=== PATIENT | male | born 1985 | race Hispanic/Latino ===

== ENCOUNTER 2025-06-10 12:38 | Inpatient (IN) | payer BC ==
[~2025-06-10] VITALS: Ht 160 cm; Wt 63.6 kg
[2025-06-10] VITALS (10 sets, daily range): BP systolic 98–129; BP diastolic 56–72; PULSE 99–112; RESP 19–23; TEMP 100.1–100.3; O2SAT 95–98
[~2025-06-10 12:38] MED LIST: ATOR40TA69 PO; FENO145T26 PO; METF-444 PO; OMEG1CAP31 PO; OMEP40CA21 PO
--- NOTE | 2025-06-10 13:09 | ERN ---
General Chief Complaint: Abdominal Pain Stated Complaint: ABDOMINAL PAIN Time Seen by MD: 12:45 History of Present Illness Initial Comments 39-year-old male history of diabetes, hyperlipidemia, pancreatitis here for evaluation of pancreatitis like symptoms. As per EMS who was present at bedside patient has a developed abdominal pain since 8:00 a.m. this morning. Few episodes of vomiting but no diarrhea. No chest pain. No shortness Allergies: Coded Allergies: Penicillins (Verified Allergy, Severe, anaphylaxis, 01/01/25) Home Meds Active Scripts Omeprazole (Omeprazole) 40 Mg Capsule.dr, 1 CAP PO DAILY for 30 Days, #30 CAP 0 Refills Prov:TERRANCE LOCKETT MD 01/04/25 Fenofibrate Nanocrystallized (Fenofibrate) 145 Mg Tablet, 1 TAB PO DAILY for 30 Days, #30 TAB 0 Refills Prov:TERRANCE LOCKETT MD 01/04/25 [place]-3 Acid Ethyl Esters (Lovaza) 1 Gram Capsule, 2 CAP PO BID for 30 Days, #120 CAP 0 Refills Prov:TERRANCE LOCKETT MD 01/04/25 Atorvastatin Calcium (LIPITOR) 40 Mg Tablet, 40 MG PO HS for 30 Days, #30 TAB 1 Refill Prov:TERRANCE LOCKETT MD 01/04/25 Metformin HCl (Metformin HCl) 500 Mg Tablet, 500 MG PO DAILY, #30 TAB Prov:TERRANCE LOCKETT MD 01/04/25 Past Medical History Past Medical History: Cancer, Pancreatitis Medical History Other: PANCREATITIS, TESTICULAR CA Past Surgical History: Other Surgical History Other: TESTICULAR SX FOR CA. Gastrointestinal/Abdominal: (+) nausea, (+) vomiting, (+) abdominal pain Review of Systems: was completed, & the rest were negative. Physical Exam Physical Exam Dictation GENERAL APPEARANCE NAD, activity normal for age, well developed/ well nourished, no cyanosis, pallor, or diaphoresis. EYES lids/conjunctiva normal. EARS/NOSE/THROAT Mucous membranes moist, nares normal, lips/teeth normal uvula midline without oral pharyngeal erythema, exudate or swelling TMs normal bilaterally. No lymphangitis/lymphedema. HEAD/NECK normocephalic atraumatic, no facial trauma, neck is supple. RESPIRATORY respiratory effort normal, speaks in full sentences, no tripod position, no accessory muscle use. Lungs clear to auscultation without rhonchi, wheezes, rales CARDIAC Regular rate and rhythm, no edema. ABDOMINAL Soft, diffuse epigastric tenderness MUSCLES/EXTREMITIES No abnormal range of motion, no swelling. SKIN Warm, pink and dry. No rashes, dermatoses, petechiae or lesions. NEUROLOGICAL Speech is clear and appropriate. Normal level of consciousness. Gait and coordination are normal. 5/5 strength in all extremities. PSYCH Normal mood and affect. Judgement/competence is appropriate Results Laboratory and Microbiology Lab and Micro Result Laboratory Tests Test 06/10/25 12:55 06/10/25 13:15 06/10/25 14:22 White Blood Count 13.9 K/uL (4.8-10.8) H Red Blood Count 4.74 MIL/uL (4.50-6.20) Hemoglobin 16.6 g/dL (14.0-18.0) Hematocrit 41.4 % (42-54) L Mean Corpuscular Volume 87.3 fL (79-99) Mean Corpuscular Hemoglobin 35.0 pg (27.0-33.0) H Mean Corpuscular Hemoglobin Concent 40.1 g/dL (32.0-36.0) H Red Cell Distribution Width 12.6 % (11.0-15.5) Platelet Count 361 K/uL (130-400) Mean Platelet Volume 9.9 fL (7.5-10.5) Immature Granulocyte % (Auto) 0.9 % (0-1) Neutrophils (%) (Auto) 80.3 % (40.0-77.0) H Lymphocytes (%) (Auto) 11.0 % (21.0-51.0) L Monocytes (%) (Auto) 6.7 % (3.0-13.0) Eosinophils (%) (Auto) 0.6 % (0.0-8.0) Basophils (%) (Auto) 0.5 % (0.0-5.0) Neutrophils # (Auto) 11.1 K/uL (1.8-7.7) H Lymphocytes # (Auto) 1.5 K/uL (1.0-4.8) Monocytes # (Auto) 0.9 K/uL (0.1-1.0) Eosinophils # (Auto) 0.09 K/uL (0.00-0.70) Basophils # (Auto) 0.07 K/uL (0.00-0.20) Absolute Immature Granulocyte (auto 0.13 K/uL (0-1) Segmented Neutrophils % 81 % (40-70) H Band Neutrophils % 1 % (0-2) Lymphocytes % (Manual) 13 % (22-44) L Monocytes % (Manual) 5 % (2-9) Nucleated Red Blood Cells 0.0 % (0.0-0.19) Differential Comment MANUAL DIFFERENTIAL White Cell Morphology Comment Platelet Morphology Comment ADEQUATE Red Blood Cell Morphology ANISO 1+ Sodium Level 127 mmol/L (136-145) L Potassium Level 3.6 mmol/L (3.5-5.1) Carbon Dioxide Level mmol/L (21-32) Creatinine 0.8 mg/dL (0.5-1.3) Glomerular Filtration Rate Calc 115 mL/min (>90) Random Glucose 359 mg/dL (70-105) H Total Calcium mg/dL (8.5-10.1) Total Bilirubin 8.4 mg/dL (0.2-1.0) H Direct Bilirubin 0.1 mg/dL (0.0-0.3) Alkaline Phosphatase 166 U/L (50-136) H Total Protein 7.7 g/dL (6.0-8.3) Albumin 3.2 g/dL (3.5-5.0) L Triglycerides Level 1949 mg/dL (30-200) H Lipase 308 U/L (16-77) H Urine Color LIGHT-YELLOW (YELLOW) Urine Appearance CLEAR (CLEAR) Urine pH 7.0 (5.0-8.0) Urine Specific [place] 1.043 (1.001-1.031) Urine Protein 30 mg/dL (NEGATIVE) H Urine Glucose (UA) >=1000 mg/dL (NEGATIVE) H Urine Ketones 40 mg/dL (NEGATIVE) H Urine Occult Blood NEGATIVE (NEGATIVE) Urine Nitrate NEGATIVE (NEGATIVE) Urine Bilirubin NEGATIVE mg/dL (NEGATIVE) Urine Urobilinogen 0.2 mg/dL (0.2-1.0) Urine Leukocyte Esterase NEGATIVE Shanita/uL Urine RBC 0-1 /HPF (0-1) Urine WBC 0-1 /HPF (0-1) Urine Bacteria None /HPF (None Seen) Blood Gas Specimen Type Venous Arterial Blood Oxygen Saturation 85.7 % (94.0-98.0) L Venous Blood pH 7.373 (7.320-7.430) Venous Blood pCO2 at Patient Temp 32 (38-54) L Venous Blood pO2 at Patient Temp 50.7 mmHg (23.0-48.0) H Venous Blood HCO3 18.0 (22.0-29.0) L Venous Blood Base Excess -6.0 (-2.0-3.0) L Venous Blood Total Hemoglobin 14.1 (13.5-17.5) Sodium (Blood Gas) 136 MMOL/L (136-145) Bedside Potassium (Blood Gas) 3.6 MMOL/L (3.4-4.5) Bedside Chloride (Blood Gas) 108 MMOL/L (98-107) H Bedside Glucose (Blood Gas) 230 MG/DL (65-95) H Bedside Ionized Calcium (Blood Gas) 1.14 MMOL/L (1.15-1.33) L Bedside Lactic Acid (Blood Gas) 1.33 MMOL/L (0.36-0.75) H Blood Gas Temperature 37.0 CELSIUS (35.5-37.0) Blood Gas Vent Mode RA (ROOM AIR) FiO2 21.0 % Blood Gas Specimen Comment HAKAN MDM 39-year-old male here for evaluation of pancreatitis. We will get basic labs, give IV fluids and reassess. Disposition pending results of labs and clinical improvement. Likely admission ED Course Orders Procedure Category Date Status Time Triglycerides LAB 06/10/25 In Process 12:46 Basic Metabolic Panel LAB 06/10/25 In Process 12:46 Cbc With Differential LAB 06/10/25 Complete 12:46 Hepatic Function Panel LAB 06/10/25 In Process 12:46 Lipase LAB 06/10/25 In Process 12:46 Urinalysis Profile LAB 06/10/25 Complete 12:46 0.9%Nacl 1000ml (Ns PHA 06/10/25 In Process 1000ml) 13:30 Manual Differential LAB 06/10/25 Complete 12:55 Ondansetron 4mg Inj PHA 06/10/25 Complete (Zofran 4mg Inj) 14:00 Morphine 4mg Syg PHA 06/10/25 Complete (Morphine 4mg Syg) 14:00 Ketone Blood LAB 06/10/25 In Process Quantitative 14:10 Venous Blood Gas + RT 06/10/25 Transmitted 14:10 Hemoglobin A1c LAB 06/10/25 In Process 14:11 Crp Quantitative LAB 06/10/25 In Process 14:11 Procalcitonin LAB 06/10/25 In Process 14:11 Lactate Dehydrogenase LAB 06/10/25 In Process 14:11 Pt And Ptt LAB 06/10/25 In Process 14:14 Venous Blood Gas Plus LAB 06/10/25 Complete 14:22 Current Medications Medications (Trade) Dose Ordered Sig/Josee Route PRN Reason Start Time Stop Time Status Last Admin Dose Admin Morphine Sulfate (morPHINE 4MG SYG) 4 mg ONCE ONCE IVP 06/10/25 14:00 06/10/25 14:01 DC 06/10/25 13:47 Ondansetron HCl (zoFRAN 4MG INJ) 4 mg ONCE ONCE IVP 06/10/25 14:00 06/10/25 14:01 DC 06/10/25 13:47 Sodium Chloride 1,000 ml @ 0 mls/hr Q0M IV 06/10/25 13:30 07/10/25 13:29 06/10/25 13:24 Vital Signs Date Time Temp Pulse Resp B/P (MAP) Pulse Ox O2 Delivery O2 Flow Rate FiO2 06/10/25 13:17 98.2 113 21 132/80 96 Room Air* 0 21 06/10/25 12:52 99.9 106 16 133/81 97 Room Air 0 DX & DISP Disposition: Discharge Departure Impression: Primary Impression: Pancreatitis Additional Impressions: Hypertriglyceridemia, Hyperglycemia, Hyponatremia Condition: Stable Referrals: PEDRITO TAVAREZ PA-C (PCP) NATE URIAS MD Jun 10, 2025 13:09
[2025-06-10 13:11] LABS: IMMATURE GRANULOCYTE ABSOLUTE 0.13 K/uL (0-1); NUCLEATED RED BLOOD CELLS 0.0 % (0.0-0.19); PLATELET COUNT (AUTO) 361 K/uL (130-400); RED BLOOD CELL COUNT(AUTO) 4.74 MIL/uL (4.50-6.20); RED CELL DISTRIBUTION WIDTH 12.6 % (11.0-15.5); WHITE BLOOD COUNT (AUTO) 13.9 K/uL (4.8-10.8)
[2025-06-10] MEDS: 0.9%NACL 1000ML 1,000 ML IV SCH (13:24)
[2025-06-10 13:45] LABS: GLUCOSE,RANDOM 359.0 mg/dL (70-105); SODIUM SERUM 127.0 mmol/L (136-145)
[2025-06-10 13:59] LABS: APPEARANCE,URINE CLEAR (CLEAR); GLUCOSE, URINE (UA) >=1000 mg/dL (NEGATIVE); LEUKOCYTE ESTERASE ,URINE NEGATIVE Leu/uL (NEGATIVE); NITRATE,URINE NEGATIVE (NEGATIVE); OCCULT BLOOD,URINE NEGATIVE (NEGATIVE)
[2025-06-10 14:00] LABS: ADD UA MICROSCOPIC YES
[2025-06-10 14:16] LABS: BAND NEUTROPHILS % (MANUAL) 1 % (0-2); LYMPHOCYTES % (MANUAL) 13 % (22-44); MONOCYTES % (MANUAL) 5 % (2-9); SEGMENTED NEUTROPHILS % 81 % (40-70)
[2025-06-10 14:17] LABS: MAN.DIFF COMMENT-IMPRESSION MANUAL DIFFERENTIAL; PLATELET MORPHOLOGY COMMENT ADEQUATE
[2025-06-10 14:24] LABS: ABG OXYGEN SATURATION 85.7 % (94.0-98.0); BASE EXCESS,VENOUS BLOOD GAS -6.0 (-2.0-3.0); DEVICE COMMENT VEN; HCO3,VENOUS BLOOD GAS 18.0 (22.0-29.0); PCO2,VENOUS BLOOD GAS 32 (38-54); PH,VENOUS BLOOD GAS 7.373 (7.320-7.430); PO2,VENOUS BLOOD GAS 50.7 mmHg (23.0-48.0); TEMPERATURE, CELSIUS BG 37.0 CELSIUS (35.5-37.0); VENT MODE, BG RA (ROOM AIR)
[2025-06-10 14:25] LABS: CREATININE 0.8 mg/dL (0.5-1.3); GLOMERULAR FILTR. RATE CALC 115.0 mL/min (>90); TOTAL PROTEIN, SERUM 7.7 g/dL (6.0-8.3)
[2025-06-10 14:42] LABS: UREA NITROGEN, BLOOD 14.0 mg/dL (7-18)
[2025-06-10 14:57] LABS: LACTATE DEHYDROGENASE 285.0 U/L (81-234)
[2025-06-10] MEDS: 0.9%NACL 1000ML 1,000 ML IV ONE (14:59)
[2025-06-10] MEDS ORDERED: DEXTROSE 5 %-0.45 % NACL 1,000 ML IV SCH (15:00)
[2025-06-10] MEDS ORDERED: 0.9%NACL 1000ML 1,000 ML IV SCH (15:00)
[2025-06-10] MEDS ORDERED: INSULIN REGULAR, HUMAN 3ML 100 UNIT in 0.9%NACL 100ML 100 ML IV SCH (15:00)
--- NOTE | 2025-06-10 15:01 | NUR ---
PER DR MORTENSEN, ONCE FLUID BOLUS IS COMPLETE, START INSULIN DRIP AT 0.1U/KG/HR WITHOUT TITRATION. ASSESS BG AND INITIATE DEXTROSE SOLUTION ONCE BG<300.
[2025-06-10 15:15] LABS: ASPARTATE AMINOTRANSFERASE 23.0 U/L (10-37)
[2025-06-10] MEDS: D5W-1/2 NS/20MEQ KCL 1,000 ML IV SCH (15:16)
--- NOTE | 2025-06-10 15:16 | HP ---
[facility] HISTORY AND PHYSICAL Date of Service: Jun 10, 2025 Time of Service: 15:16 HISTORY OF PRESENT ILLNESS: Date of service: 06/10/2025, patient was seen in ER room two This is a 39-year-old male with underlying history of type 2 diabetes mellitus, history of recurrent pancreatitis, with history of hypertriglyceridemia, who presented to the ER for further evaluation of [id number] epigastric and and left upper quadrant pain that started close to 8:00 a.m. today. Pain was 8/10 in intensity with associated nausea. Patient states that pain is similar to his previous hospitalization in [facility] [place]/20[place] when he was admitted with DKA, severe hypertriglyceridemia and acute pancreatitis. Patient states that he recently ran out of his cholesterol medication including fish oil and Lipitor. He also reports that his primary care provider recently stopped his diabetic medication and he has not taken his diabetic medications for several weeks. Patient denies any chest pain, shortness of breath, focal weakness or upper or lower extremities. On presentation to the hospital, patient was noted to have T-max of 99.9 F, heart rate of 106, blood pressure 133/81. [place] [address], hemoglobin of 16.6, platelet count of 223836. CMP showed sodium of 127, potassium 3.6, chloride of 100, bicarb of 17, creatinine 0.8, blood glucose of 359, lipase of 308, triglycerides of 1949. Patient will be admitted to ICU for further management of severe hypertriglyceridemia causing recurrent acute pancreatitis. We will follow up results of liver enzymes. Patient will be admitted to ICU and will receive aggressive IV hydration and will be initiated on insulin drip. Abdominal CT will be obtained as well for further evaluation. REVIEW OF SYSTEMS CONSTITUTIONAL: Denies fevers, chills, or night sweats. No unintentional weight loss reported. NEUROLOGICAL: Denies headache, amaurosis fugax, motor weakness, sensory deficit, vertigo/spinning sensation, gait abnormalities, or tremors. ENT: No hearing loss, otalgia, otorrhea, rhinitis, rhinorrhea, hoarseness, or sore throat. CARDIOVASCULAR: Denies any exertional angina, dyspnea on exertion, orthopnea, paroxysmal nocturnal dyspnea, palpitations, life-threatening arrhythmias, claudication. PULMONARY: Denies any shortness of breath, cough, phlegm/sputum, hemoptysis, pleuritic chest pain. SLEEP: Denies morning headaches, daytime somnolence or napping. Denies difficulty falling asleep, staying asleep, waking from sleep. Denies knowledge of snoring. GASTROINTESTINAL: Nausea and [id number] abdominal pain that started today GENITOURINARY: Denies frequency, urgency, nocturia, hematuria or incontinence (Storage/Irritative symptoms.) Low urinary stream, straining to void, urinary intermittency or hesitancy, splitting of the voiding stream, terminal dribbling. ENDOCRINOLOGIC: Denies polyuria, polydipsia, polyphagia or heat/cold intolerances. HEMATOLOGIC: Denies thrombophilia/previous clots, or coagulopathy/bleeding disorders. ONCOLOGIC: Denies personal history of malignancy. DERMATOLOGIC: Denies rashes or pruritus. PSYCHIATRIC: Denies any suicidal or homicidal ideation. Denies hallucinations. PAST MEDICAL HISTORY: Prior history of multiple episodes of pancreatitis, history of hypertriglyceridemia, underlying history of ketosis prone diabetes mellitus, history of testicular cancer in 2003 PAST SURGICAL HISTORY: History of left testicular orchiectomy PAST SOCIAL HISTORY: Denies active smoking or alcohol consumption FAMILY HISTORY: History of liver cancer in family Allergies: Patient has allergic reaction including anaphylaxis to penicillin Home medications: Reports being on fish oil and Lipitor as outpatient Coded Allergies: Penicillins (Verified Allergy, Severe, anaphylaxis, 01/01/25) PHYSICAL EXAM GENERAL APPEARANCE: The patient is awake, alert, and oriented, in no acute cardiopulmonary distress. NEUROLOGICAL: Cranial nerves II-XII grossly intact. Motor is 5/5 in bilateral upper and lower extremities proximal to distal. No sensory deficits. HEENT: Face is symmetric. Pupils are equal and reactive. Extraocular movements are intact. NECK: Supple. No JVD. No thyromegaly. No submental, submandibular, pre- /postauricular, occipital or supraclavicular lymphadenopathy. CHEST: Normal chest expansion. No Telemetry. LUNGS: Absence of any rales, rhonchi or any wheezing. CARDIOVASCULAR: Regular. S1 and S2 normal. No appreciable rubs, murmurs or gallops. ABDOMEN: Soft, mild tenderness to palpation of the epigastric and left upper quadrant region, there is no rebound or guarding : Deferred. No [place]. EXTREMITIES: Non-edematous and not cyanotic. No clubbing. Good capillary refill. SKIN: No skin breakdown. Vital Sign (Last 24 Hours) 06/10/25 06/10/25 13:17 14:55 Temp 98.2 Pulse 112 Resp 20 B/P (MAP) 132/80 Pulse Ox 96 O2 Delivery N/A Room Air O2 Flow Rate 0 FiO2 21 LABS: Laboratory: Test 06/10/25 15:11 06/10/25 14:22 06/10/25 14:19 06/10/25 13:15 Range/Units Whole Blood Glucose 185 H 70-110 MG/DL Blood Gas Specimen Type Venous Arterial Blood Oxygen Saturation 85.7 L 94.0-98.0 % Venous Blood pH 7.373 7.320-7.430 Venous Blood pCO2 at Patient Temp 32 L 38-54 Venous Blood pO2 at Patient Temp 50.7 H 23.0-48.0 mmHg Venous Blood HCO3 18.0 L 22.0-29.0 Venous Blood Base Excess -6.0 L -2.0-3.0 Venous Blood Total Hemoglobin 14.1 13.5-17.5 Sodium (Blood Gas) 136 136-145 MMOL/L Bedside Potassium (Blood Gas) 3.6 3.4-4.5 MMOL/L Bedside Chloride (Blood Gas) 108 H 98-107 MMOL/L Bedside Glucose (Blood Gas) 230 H 65-95 MG/DL Bedside Ionized Calcium (Blood Gas) 1.14 L 1.15-1.33 MMOL/L Bedside Lactic Acid (Blood Gas) 1.33 H 0.36-0.75 MMOL/L Blood Gas Temperature 37.0 35.5-37.0 CELSIUS Blood Gas Vent Mode RA ROOM AIR FiO2 21.0 % Blood Gas Specimen Comment HAKAN Whole Blood Ketones Quantitative 0.6 0.0-0.6 mmol/L Lactate Dehydrogenase 285 H 81-234 U/L C-Reactive Protein, Quantitative 84.90 H 0.5-3.0 mg/L Procalcitonin 0.10 0.05-0.5 ng/mL Urine Color LIGHT-YELLOW YELLOW Urine Appearance CLEAR CLEAR Urine pH 7.0 5.0-8.0 Urine Specific [place] 1.043 1.001-1.031 Urine Protein 30 H NEGATIVE mg/dL Urine Glucose (UA) >=1000 H NEGATIVE mg/dL Urine Ketones 40 H NEGATIVE mg/dL Urine Occult Blood NEGATIVE NEGATIVE Urine Nitrate NEGATIVE NEGATIVE Urine Bilirubin NEGATIVE NEGATIVE mg/dL Urine Urobilinogen 0.2 0.2-1.0 mg/dL Urine Leukocyte Esterase NEGATIVE NEGATIVE Shanita/uL Urine RBC 0-1 0-1 /HPF Urine WBC 0-1 0-1 /HPF Urine Bacteria None None Seen /HPF Test 06/10/25 12:55 Range/Units White Blood Count 13.9 H 4.8-10.8 K/uL Red Blood Count 4.74 4.50-6.20 MIL/uL Hemoglobin 16.6 14.0-18.0 g/dL Hematocrit 41.4 L 42-54 % Mean Corpuscular Volume 87.3 79-99 fL Mean Corpuscular Hemoglobin 35.0 H 27.0-33.0 pg Mean Corpuscular Hemoglobin Concent 40.1 H 32.0-36.0 g/dL Red Cell Distribution Width 12.6 11.0-15.5 % Platelet Count 361 130-400 K/uL Mean Platelet Volume 9.9 7.5-10.5 fL Immature Granulocyte % (Auto) 0.9 0-1 % Neutrophils (%) (Auto) 80.3 H 40.0-77.0 % Lymphocytes (%) (Auto) 11.0 L 21.0-51.0 % Monocytes (%) (Auto) 6.7 3.0-13.0 % Eosinophils (%) (Auto) 0.6 0.0-8.0 % Basophils (%) (Auto) 0.5 0.0-5.0 % Neutrophils # (Auto) 11.1 H 1.8-7.7 K/uL Lymphocytes # (Auto) 1.5 1.0-4.8 K/uL Monocytes # (Auto) 0.9 0.1-1.0 K/uL Eosinophils # (Auto) 0.09 0.00-0.70 K/uL Basophils # (Auto) 0.07 0.00-0.20 K/uL Absolute Immature Granulocyte (auto 0.13 0-1 K/uL Segmented Neutrophils % 81 H 40-70 % Band Neutrophils % 1 0-2 % Lymphocytes % (Manual) 13 L 22-44 % Monocytes % (Manual) 5 2-9 % Nucleated Red Blood Cells 0.0 0.0-0.19 % Differential Comment MANUAL DIFFERENTIAL White Cell Morphology Comment Platelet Morphology Comment ADEQUATE Red Blood Cell Morphology ANISO 1+ Sodium Level 127 L 136-145 mmol/L Potassium Level 3.6 3.5-5.1 mmol/L Chloride Level 100 L 101-111 mmol/L Carbon Dioxide Level 21-32 mmol/L Blood Urea Nitrogen 14 7-18 mg/dL Creatinine 0.8 0.5-1.3 mg/dL Glomerular Filtration Rate Calc 115 >90 mL/min Random Glucose 359 H 70-105 mg/dL Total Calcium 8.5-10.1 mg/dL Total Bilirubin 8.4 H 0.2-1.0 mg/dL Direct Bilirubin 0.1 0.0-0.3 mg/dL Alkaline Phosphatase 166 H 50-136 U/L Total Protein 7.7 6.0-8.3 g/dL Albumin 3.2 L 3.5-5.0 g/dL Triglycerides Level 1949 H 30-200 mg/dL Lipase 308 H 16-77 U/L Current Medications Medications (Trade) Dose Ordered Sig/Josee Route PRN Reason Start Time Stop Time Status Last Admin Dose Admin Acetaminophen (TYLenol 325MG TAB) 650 mg Q6H PRN PO MILD PAIN (1-3) 06/10/25 15:00 07/10/25 14:59 Albuterol (DUOneb) 1 udvial Q6H PRN IH SHORTNESS OF BREATH 06/10/25 15:00 07/10/25 14:59 Dextrose/Sodium Chloride 1,000 ml @ 0 mls/hr AD IV 06/10/25 15:00 07/10/25 14:59 Enoxaparin Sodium (Lovenox) 40 mg DAILY SQ 06/11/25 09:00 07/11/25 08:59 Fish Oil (Fish Oil 1000 Mg/Cap) 2,000 mg BID PO 06/10/25 21:00 07/10/25 20:59 Insulin Human Regular 100 unit/ Sodium Chloride 100 ml @ 0 mls/hr PROTOCOL PRN IV HYPERGYLCEMIA PROTOCOL 06/10/25 15:30 07/10/25 15:29 Insulin Human Regular 100 unit/ Sodium Chloride 101 ml @ 0 mls/hr PROTOCOL IV 06/10/25 15:00 06/10/25 15:09 DC Magnesium Sulfate 50 ml @ 0 mls/hr PROTOCOL IV 06/10/25 15:00 07/10/25 14:59 Morphine Sulfate (morPHINE 2MG SYG) 2 mg Q6H PRN IVP SEVERE PAIN (7-10) 06/10/25 15:00 06/17/25 14:59 Multivitamins Therapeutic (Multivitamin Tablet) 1 tab DAILY PO 06/11/25 09:00 07/11/25 08:59 Ondansetron HCl (zoFRAN 4MG INJ) 4 mg Q6H PRN IVP NAUSEA/VOMITING 06/10/25 15:00 07/10/25 14:59 Pantoprazole Sodium (PROTonix 40MG INJ) 40 mg Q24H IVP 06/10/25 15:00 07/10/25 14:59 Pharmacy Profile Note (Pharmacy Communication) 1 each ONCE MISC 06/10/25 15:30 06/10/25 15:14 DC Potassium Chloride 20 meq/ Sodium Chloride 1,010 ml @ 0 mls/hr PROTOCOL IV 06/10/25 15:00 07/10/25 14:59 Potassium Chloride/Dextrose/ Sod Cl 1,000 ml @ 0 mls/hr AD IV 06/10/25 15:00 07/10/25 14:59 Potassium Chloride 100 ml @ 100 mls/hr AD PRN IV POTASSIUM PROTOCOL 06/10/25 15:00 07/10/25 14:59 Potassium Chloride (K-Dur/Klor-Con 20meq) 20 meq AD PRN PO POTASSIUM PROTOCOL 06/10/25 15:00 07/10/25 14:59 Potassium Chloride (KCl 10% Elixir 20meq/15ml) 20 meq AD PRN PO POTASSIUM PROTOCOL 06/10/25 15:00 07/10/25 14:59 Sodium Chloride 1,000 ml @ 0 mls/hr Q0M IV 06/10/25 13:30 06/10/25 14:43 DC 06/10/25 13:24 999 MLS/HR Sodium Chloride 1,000 ml @ 200 mls/hr PROTOCOL IV 06/10/25 15:00 06/10/25 14:48 DC DIAGNOSTICS / RADIOLOGY: CT of the abdomen pelvis with IV contrast is pending ASSESSMENT: Severe symptomatic hypertriglyceridemia, POA Acute pancreatitis, POA History of recurrent pancreatitis, POA Nonketotic uncontrolled hyperglycemia, POA Hypovolemic hyponatremia, POA Dehydration, POA Underlying history of ketosis prone diabetes mellitus, POA History of hyperlipidemia, POA History of pancreatic cyst measuring 0.9 cm, (on CT Abdomen/ Pelvis, 11/17), POA History of cholelithiasis, POA PLAN: Patient will be admitted to ICU Patient's triglyceride level is close to 2000 with symptoms of acute pancreatitis Patient will be kept NPO except for medications We will start patient on insulin drip starting at 0.1 units/kg/hour, patient will receive aggressive IV fluid resuscitation, we will titrate IV fluids to avoid any episodes of hypoglycemia, we will maintain blood sugar checks q.1 hour while patient remains on insulin drip Pain control with IV morphine Consultation with critical care service will be obtained Consultation with Endocrinology will be requested We will follow up results of CT abdomen pelvis with IV contrast for further ev aluation of pancreatitis Electrolytes will be repleted per protocol including potassium and magnesium while patient remains on insulin drip We will start patient on Lipitor 20 mg daily, fish oil 1 g twice daily, as well as fenofibrate 145 mg All labs will be repeated in the morning, we will check triglycerides tomorrow, we will check hemoglobin A1c, patient we will need diabetic medications on discharge along with refills of home medications for hypertriglyceridemia We will obtain CXR to r/o any significant infiltrates, blood cultures will be obtained, will monitor closely for signs of infection, empiric abx in case infection is confirmed Date of service: 06/10/2025 Anticipate hospitalization for at least 48-72 hours Plan of care was discussed with patient at bedside, Dominic Smith MD Advanced Care Planning: Which of the following were discussed: Hospice care: Yes __ No _X_ Therapeutic options: Yes _X_ No __ Advance directives: Yes _X_ No __ Other discussions: Discussed with who?: Patient Voluntary nature of this service was explained to the patient? Yes _x_ No __ Amount of time spent: 20 minutes DOMINIC SMITH MD Jun 10, 2025 15:16
[2025-06-10] MEDS: INSULIN REGULAR, HUMAN 3ML 100 UNIT in 0.9%NACL 100ML 99 ML IV PRN (15:25)
--- NOTE | 2025-06-10 15:28 | NUR ---
BG FINGERSTICK IS 185. DR MORTENSEN INFORMED. PER DR MORTENSEN, INITIATED D5-1/2NS WITH 20MEQ POTASSIUM CHLORIDE AT RATE 150ML/HR. INITIATED INSULIN DRIP AT 6U/HR.
[2025-06-10] MEDS ORDERED: PHARMACY COMMUNICATION MISC SCH (15:30)
[2025-06-10 15:52] LABS: INR 0.97 (0.85-1.15)
--- NOTE | 2025-06-10 15:58 | NUR ---
PENDING GFR RESULTS, IV SITE, & CONSENT FIR CT EXAM
[2025-06-10] MEDS ORDERED: IOHEXOL-350 75 ML VIAL IV ONE (16:02)
--- NOTE | 2025-06-10 16:05 | NUR ---
PATIENT EDUCATED ON CT CONTRAST AND ASSOCIATED RISK. PATIENT VERBALIZED UNDERSTANDING AND CONSENT FOR CT W/CONTRAST. CONSENT FORM SIGNED AND PLACED IN PATIENT CHART.
--- NOTE | 2025-06-10 16:10 | NUR ---
PATIENT TAKEN TO CT WITH ED RN.
--- NOTE | 2025-06-10 16:33 | NUR ---
RETURNED FROM CT.
[2025-06-10 16:51] LABS: GLUCOSE,RANDOM 271.0 mg/dL (70-105); SODIUM SERUM 130.0 mmol/L (136-145); UREA NITROGEN, BLOOD 10.0 mg/dL (7-18)
--- NOTE | 2025-06-10 16:51 | NUR ---
GAVE REPORT TO KATINA GALAN.
--- NOTE | 2025-06-10 17:12 | HMCIMG ---
EXAM: CT Abdomen and Pelvis with IV contrast CLINICAL HISTORY: Concern for acute pancreatitis. History of severe hypertriglyceridemia. TECHNIQUE: Thin collimated axial CT images of the abdomen and pelvis were obtained with sagittal and coronal reformatted images also submitted. CT scan done according to ALARA (As Low As Reasonably Achievable). CONTRAST: Yes. COMPARISON: None. FINDINGS: Multifocal airspace disease within the bilateral lower lobes may reflect an infectious and/inflammatory process. There is no focal abnormality appreciated within the adrenals, or kidneys. Severe hepatomegaly measuring approximately 23 cm in the craniocaudal span. Two, radiopaque calculi noted in the gallbladder, largest measuring approximately 1.6 cm. Body and tail of pancreas is mildly bulky with moderate surrounding inflammation, predominantly around the distal body and tail region. Focal hypodense area noted in the tail of pancreas measuring approximately 8 mm. Small, old calcified granuloma noted in the upper pole of spleen. There is no obvious bowel wall thickening. Bowel loops are normal in caliber without evidence of obstruction or ileus. The appendix is normal. There is no abnormality within the urinary bladder. Unremarkable re-productive organs. Aorta is normal in caliber. Mild atheromatous wall calcifications of the aorta. No lymphadenopathy. Suspected minimal free fluid in the left side of pelvis extending up to the left inguinal canal. There is no acute osseous abnormality. Surgical clips noted in the right retroperitoneum. IMPRESSIONS: Features of acute intersttitial edematous pancreatitis. Small hypodense lesion in the tail of pancreas possibly pseudocyst versus side branch IPMN. Recommend follow-up MRI. Suspected minimal free fluid in the left side of pelvis extending up to the left inguinal canal. Severe hepatomegaly. Cholelithiasis. /[place]
--- NOTE | 2025-06-10 17:59 | CONS ---
[facility] CONSULTATION NOTE Date Patient Seen: Jun 10, 2025 Time of Visit: 17:57 Supervising Physician: Dr. Ronny Hammonds Reason for Consultation: Severe hypertriglyceridemia, on insulin gtt Primary Care Physician: Attending group: [facility] Team Outpatient Specialists: Inpatient Consults: BIS, critical care team Shuttle Filler PROBLEM LIST: Severe symptomatic hypertriglyceridemia, POA Acute interstitial edematous pancreatitis, POA, per CT 06/10/25, with hx of recurrent pancreatitis, POA Multifocal airspace disease within the bilateral lower lobes, per CT 06/10/2025 Small hypodense lesion in the tail of pancreas possibly pseudocyst versus side branch IPMN, per CT on 06/10/25 Severe hepatomegaly, per CT 06/10/25 Cholelithiasis, per CT 06/10/25 Electrolyte derangement (hyponatremia, hypochloremia hypocalcemia) Uncontrolled diabetes mellitus, POA Elevated total bilirubin, alk-phos, and lipase. Elevated lactate dehydrogenase and C-reactive protein Hypoalbuminemia Proteinuria, glucosuria, ketonuria Leukocytosis Anemia Hypovolemic hyponatremia, POA Dehydration, POA Underlying history of ketosis prone diabetes mellitus, POA Hyperlipidemia, POA History of pancreatic cyst measuring 0.9 cm, (on CT Abdomen/ Pelvis, 11/17), POA HPI: Mr. Landry is a 39-year-old male with history of type 2 diabetes mellitus, history of recurrent pancreatitis, hypertriglyceridemia who presented to [place] [facility] for evaluation of [id number] epigastric and and left upper quadrant pain onset about 8:00 a.m. today. Pain was 8/10 in intensity with associated nausea. Patient stated steady pain is similar to his previous hospitalization in [place] in 12/2024 when he was admitted with DKA, severe hypertriglyceridemia and acute pancreatitis. Patient reported he ran out of his cholesterol medication inc luding fish oil and Lipitor on Wednesday (3 days ago). He stated that his PCP has been monitoring his triglycerides levels and they have been good. He also reported that his primary care provider recently stopped his diabetic medication has not taken his diabetic medications for several weeks. Patient denied any chest pain, shortness of breath, focal weakness or upper or lower extremities. V/S on arrival: T-max of 99.9 F, heart rate of 106, blood pressure 133/81. Remarkable Labs:on presentation showed WBC 04988, hemoglobin of 16.6, platelet count of 198783. Na 127, potassium 3.6, chloride of 100, bicarb of 17, creatinine 0.8, blood glucose of 359, lipase of 308, triglycerides of 1949. CT abdomen and pelvis with contrast: Multifocal airspace disease within the bilateral lower lobes may reflect an infectious and/inflammatory process. Features of acute interstitial edematous pancreatitis. Small hypodense lesion in the tail of pancreas possibly pseudocyst versus side branch IPMN. Recommend follow-up MRI. Suspected minimal free fluid in the left side of pelvis extending up to the left inguinal canal. Severe hepatomegaly. Cholelithiasis. Chest x-ray: 1. Bibasilar airspace disease, likely infectious or inflammatory. Patient was admitted to ICU for further management of severe hypertriglyceridemia causing recurrent acute pancreatitis with aggressive IV hydration and will be initiated on insulin drip. BIS team was consulted for critical care management. I assessed the patient in 216. No family member at bedside. The patient's breathing was even, unlabored, appeared comfortable, in no distress. The patient was on fluids and insulin drip. I informed the patient of labs, diagno stics, and plan of care. He verbalized understanding and is in agreement with the plan. Plan and assessment are listed below. PAST MEDICAL HX: see above PAST SURGICAL HX: Left testicular orchiectomy SOCIAL HISTORY: No tobacco, ETOH, or illicit drug use Coded Allergies: Penicillins (Verified Allergy, Severe, anaphylaxis, 01/01/25) REVIEW OF SYSTEMS: 12 point ROS reviewed with patient. Pertinent positives mentioned above. Otherwise negative. PHYSICAL EXAM: GENERAL: Alert, weak, awake oriented x 4 HEENT: EOMI, Sclera non icteric, moist mucosa NECK: Supple, no JVD, trachea midline LUNGS: Clear breath sounds bilaterally. No wheezes HEART: Regular rate and rhythm. Normal S1 and S2, without murmurs ABD: Abdomen soft, nontender. Bowel sounds present EXT: No clubbing cyanosis or edema NEURO: Alert and oriented X4, follows commands Vital Signs (last 8hr) Date Time Temp Pulse Resp B/P (MAP) Pulse Ox O2 Delivery O2 Flow Rate FiO2 06/10/25 16:41 98.2 109 18 100/62 97 Room Air* 0 21 06/10/25 15:30 98.2 102 18 103/69 96 Room Air* 0 21 06/10/25 14:55 112 20 N/A Room Air 06/10/25 14:30 98.2 107 19 118/81 96 Room Air* 0 06/10/25 13:30 98.2 105 19 130/82 98 Room Air* 0 06/10/25 13:17 98.2 113 21 132/80 96 Room Air* 0 06/10/25 12:52 99.9 106 16 133/81 97 Room Air 0 LABS: Hematology Labs: Test 06/10/25 12:55 Range/Units White Blood Count 13.9 H 4.8-10.8 K/uL Red Blood Count 4.74 4.50-6.20 MIL/uL Hemoglobin 16.6 14.0-18.0 g/dL Hematocrit 41.4 L 42-54 % Mean Corpuscular Volume 87.3 79-99 fL Mean Corpuscular Hemoglobin 35.0 H 27.0-33.0 pg Mean Corpuscular Hemoglobin Concent 40.1 H 32.0-36.0 g/dL Red Cell Distribution Width 12.6 11.0-15.5 % Platelet Count 361 130-400 K/uL Mean Platelet Volume 9.9 7.5-10.5 fL Immature Granulocyte % (Auto) 0.9 0-1 % Neutrophils (%) (Auto) 80.3 H 40.0-77.0 % Lymphocytes (%) (Auto) 11.0 L 21.0-51.0 % Monocytes (%) (Auto) 6.7 3.0-13.0 % Eosinophils (%) (Auto) 0.6 0.0-8.0 % Basophils (%) (Auto) 0.5 0.0-5.0 % Neutrophils # (Auto) 11.1 H 1.8-7.7 K/uL Lymphocytes # (Auto) 1.5 1.0-4.8 K/uL Monocytes # (Auto) 0.9 0.1-1.0 K/uL Eosinophils # (Auto) 0.09 0.00-0.70 K/uL Basophils # (Auto) 0.07 0.00-0.20 K/uL Absolute Immature Granulocyte (auto 0.13 0-1 K/uL Segmented Neutrophils % 81 H 40-70 % Band Neutrophils % 1 0-2 % Lymphocytes % (Manual) 13 L 22-44 % Monocytes % (Manual) 5 2-9 % Nucleated Red Blood Cells 0.0 0.0-0.19 % Differential Comment MANUAL DIFFERENTIAL White Cell Morphology Comment Platelet Morphology Comment ADEQUATE Red Blood Cell Morphology ANISO 1+ Chemistry Labs: Test 06/10/25 16:37 06/10/25 16:36 06/10/25 14:19 06/10/25 12:55 Range/Units Sodium Level 130 L 136-145 mmol/L Potassium Level 4.0 3.5-5.1 mmol/L Chloride Level 103 101-111 mmol/L Blood Urea Nitrogen 10 7-18 mg/dL Random Glucose 271 H 70-105 mg/dL Whole Blood Glucose 192 H 70-110 MG/DL Bedside Glucose Comment Notified Nurse Whole Blood Ketones Quantitative 0.6 0.0-0.6 mmol/L Lactate Dehydrogenase 285 H 81-234 U/L C-Reactive Protein, Quantitative 84.90 H 0.5-3.0 mg/L Procalcitonin 0.10 0.05-0.5 ng/mL Total Bilirubin 8.4 H 0.2-1.0 mg/dL Direct Bilirubin 0.1 0.0-0.3 mg/dL Aspartate Amino Transf (AST/SGOT) 23 10-37 U/L Alanine Aminotransferase (ALT/SGPT) 16 12-78 U/L Alkaline Phosphatase 166 H 50-136 U/L Total Protein 7.7 6.0-8.3 g/dL Albumin 3.2 L 3.5-5.0 g/dL Triglycerides Level 1949 H 30-200 mg/dL Lipase 308 H 16-77 U/L Coagulation Labs: Test 06/10/25 14:19 Range/Units Prothrombin Time 10.3 9.6-11.6 SEC Prothromb Time International Ratio 0.97 0.85-1.15 Activated Partial Thromboplast Time 26.3-35.5 SEC DIAGNOSTICS / RADIOLOGY RESULTS: [ ] PLAN Admit to ICU with continuous cardiac monitoring and pulse oximetry monitoring. Keep NPO except for meds. Continue insulin drip. Blood glucose checks Q1 hour and as needed while on insulin drip. Aggressive IV fluid resuscitation. Prn medications for: Pain management, nausea, vomiting, constipation, hypertension, fever, shortness of breath. Pending Endocrinology consult. Continue Lipitor, Ca cellulitis, history fenofibrate. Obtain blood cultures, lactic acid, flu, COVID, and strep. Start Levaquin 500 mg IV daily. Vital signs per ICU. Monitor renal and liver function. Monitor electrolytes and treat accordingly PRN AM labs + A1c, repeat triglyceride level. GI and DVT prophylaxis Further plan/orders per hospitalization course. NEURO: Minimize central acting medications as possible. Fall Precautions. Well lighted room through the day and minimize interruptions through the night to prevent acute delirium. PULMONARY: Supplemental 02 as needed Titrate Fio2 to keep Spo2 > or = 90% DuoNebs and CPT as needed IS hourly while awake for pulmonary hygiene Out of bed to chair as tolerated VAP Bundle CARDIOVASCULAR: Follow hemodynamics. Titrate vasopressor to keep MAP >65 or systolic blood pressure >95mmHg GI & NUTRITION: Continue nutritional support Aspirations precautions Prokinetic agents and laxatives as needed KIDNEYS & ELECTROLYTES: Strict monitoring of intake and output Daily weights Avoid nephrotoxic agents Monitor electrolytes and replace as needed Goal urine output of 30mL/hr or 0.5mL/kg/hr ENDOCRINE: Maintain blood glucose between 100-180 at all times. Insulin sliding scale for blood glucose management INFECTIOUS DISEASE: Trend temperature. Cevallos-culture if febrile. HEMATOLOGY & COAGULATION: Monitor H&H. Keep Hgb > 7 Transfuse 1 unit of PRBC for Hgb < 7 Transfuse 1 pack of platelets of platelets < 20, 000 Watch for any signs and symptoms of bleeding SKIN: Pressure ulcer prevention per facility protocol Rehab: PT/OT Code Status: Full Resuscitation Disposition: [Admit to ICU] Other: Total patient care time exceeds 45 minutes excluding all procedures. ATTESTATION BY PHYSICIAN The patient has been seen and evaluated, the case has been discussed with the HEAD START DIRECTOR, I agree with the clinical findings and plan of care. Ronny Hammonds MD, LUCIA M WRECKER DRIVER Jun 10, 2025 17:59
[2025-06-10 18:20] LABS: CREATININE 0.7 mg/dL (0.5-1.3); GLOMERULAR FILTR. RATE CALC 119.0 mL/min (>90)
--- NOTE | 2025-06-10 18:20 | HMCIMG ---
EXAM: CR Chest, 1 View. CLINICAL HISTORY: r/o significant infiltrates COMPARISON: None provided. FINDINGS: LUNGS: Bibasilar airspace disease, presumed to reflect an infectious and/or inflammatory process. PLEURAL SPACES: No pleural effusion or pneumothorax. MEDIASTINUM: The cardiomediastinal silhouette is within normal limits. BONES: No aggressive appearing osseous lesion seen. IMPRESSION: 1. Bibasilar airspace disease, likely infectious or inflammatory. /[place]
[2025-06-10] MEDS: FISH OIL 1000 MG/CAP PO SCH (20:34)
--- NOTE | 2025-06-10 20:49 | NUR ---
PHARMACY NOTIFIED LEVAQUIN WAS NOT SCANNED IN THE OMNICELL, NOTIFIED PHARMACY ABOUT OVERRIDE IN THE OMNICELL.
[2025-06-10 21:00] LABS: SARS-CoV-2, RNA, NAAT NEGATIVE SARS CoV-2 (NEGATIVE)
[2025-06-10 21:06] LABS: INFLUENZA TYPE A Negative For Type A (NEGATIVE); INFLUENZA TYPE B Negative For Type B (NEGATIVE)
[2025-06-10 22:04] LABS: CREATININE 0.9 mg/dL (0.5-1.3); GLOMERULAR FILTR. RATE CALC 111.0 mL/min (>90); SODIUM SERUM 128.0 mmol/L (136-145); UREA NITROGEN, BLOOD 6.0 mg/dL (7-18)
[2025-06-10 22:11] LABS: GLUCOSE,RANDOM 460.0 mg/dL (70-105)
[2025-06-11] VITALS (38 sets, daily range): BP systolic 101–132; BP diastolic 50–86; PULSE 86–114; RESP 15–29; TEMP 98.9–100.6; O2SAT 94–98
[2025-06-11 00:47] LABS: CREATININE 0.8 mg/dL (0.5-1.3); GLOMERULAR FILTR. RATE CALC 115.0 mL/min (>90); GLUCOSE,RANDOM 199.0 mg/dL (70-105); SODIUM SERUM 132.0 mmol/L (136-145); UREA NITROGEN, BLOOD 9.0 mg/dL (7-18)
[2025-06-11 04:58] LABS: IMMATURE GRANULOCYTE ABSOLUTE 0.09 K/uL (0-1); NUCLEATED RED BLOOD CELLS 0.0 % (0.0-0.19); PLATELET COUNT (AUTO) 291 K/uL (130-400); RED BLOOD CELL COUNT(AUTO) 4.37 MIL/uL (4.50-6.20); RED CELL DISTRIBUTION WIDTH 12.7 % (11.0-15.5); WHITE BLOOD COUNT (AUTO) 12.5 K/uL (4.8-10.8)
[2025-06-11 05:33] LABS: CREATININE 0.7 mg/dL (0.5-1.3); GLOMERULAR FILTR. RATE CALC 119.0 mL/min (>90); GLUCOSE,RANDOM 226.0 mg/dL (70-105); LDL DIRECT 27.0 mg/dL (0-99); SODIUM SERUM 131.0 mmol/L (136-145); TOTAL PROTEIN, SERUM 6.6 g/dL (6.0-8.3); UREA NITROGEN, BLOOD 6.0 mg/dL (7-18)
[2025-06-11] MEDS: MAGNESIUM 2GM PREMIX 50ML 50 ML IV SCH (06:02)
[2025-06-11 06:06] LABS: ASPARTATE AMINOTRANSFERASE 40.0 U/L (10-37)
--- NOTE | 2025-06-11 06:39 | EKG ---
[facility] Test Date: 2025-06-10 Test Time: 18:12:23 Pat Name: BIN PEOPLES Department: [facility] Room: 216 1 Gender: M Supervisor Cartography: [id number] : 1985 Requested By: WASHINGTON MORTENSEN Order Number: [id number] Reading MD: Carola Edouard Measurements Intervals Bertha Rate: 104 P: 30 AL: 134 QRS: -71 QRSD: 116 T: 20 QT: 353 QTc: 464 Interpretive Statements Sinus tachycardia Incomplete RBBB and LAFB Consider anterior infarct Compared to ECG 01/01/2025 14:58:08 Left anterior fascicular block now present Right bundle-branch block now present Myocardial infarct finding now present Sinus rhythm no longer present Electronically Signed On 06-11-2025 13:55:10 HUMAN SERVICES CASE MANAGER by Carola Edouard Please click the below link to view image of tracing.
[2025-06-11] MEDS: FENOFIBRATE NANOCRYSTALLIZED 145 MG TAB PO SCH (09:08)
[2025-06-11] MEDS: ENOXAPARIN SODIUM 40 MG/0.4 ML SYRINGE SQ SCH (09:08)
[2025-06-11] MEDS: MULTIVITAMIN TABLET PO SCH (09:08)
[2025-06-11] MEDS: LACTATED RINGERS 1000ML 1,000 ML IV SCH (09:08)
--- NOTE | 2025-06-11 10:12 | PN ---
[facility] PROGRESS NOTE Date Patient Seen: Jun 11, 2025 Time of Visit: 10:07 Supervising Physician: Dr Ronny Hammonds Primary Care Physician: Attending group: [facility] Team Outpatient Specialists: Inpatient Consults: BIS, critical care team Insulation Hoseman PROBLEM LIST: Pancreatitis secondary to hypertriglyceridemia Strep group a Multifocal airspace disease within the bilateral lower lobes, per CT 06/10/2025 Severe hepatomegaly, per CT 06/10/25 Cholelithiasis, per CT 06/10/25 Electrolyte derangement (hyponatremia, hypochloremia hypocalcemia) Hyperglycemia in a type 2 noninsulin dependent diabetic Dehydration, POA History of pancreatic cyst measuring 0.9 cm, (on CT Abdomen/ Pelvis, 11/17), POA INTERVAL HISTORY: Patient seen and examined, all labs and imaging have been reviewed, patient is awake alert and oriented, He remains NPO, currently on the insulin drip, we are monitoring his sugars Patient's triglycerides downtrending 1900 on admission now 1000, He continues on the fish oil and fenofibrate Pain is more controlled His vital signs are stable He is afebrile Plan: Continues with the insulin drip, blood glucose checks Q hour per protocol Monitor closely for hypoglycemia. Patient has D10 if needed NPO, fenofibrate, fish oil Statin Continues on the levofloxacin for his strep Patient remains on a insulin drip, checks Q hour, close monitoring of glucose levels, total critical care time spent 42 minutes, time excludes any procedures or educational time. REVIEW OF SYSTEMS: 12 point ROS reviewed with patient. Pertinent positives mentioned above. Otherwise negative. PHYSICAL EXAM: GENERAL: Alert, weak, awake oriented x 4 HEENT: EOMI, Sclera non icteric, moist mucosa NECK: Supple, no JVD, trachea midline LUNGS: Clear breath sounds bilaterally. No wheezes HEART: Regular rate and rhythm. Normal S1 and S2, without murmurs ABD: Abdomen soft, nontender. Bowel sounds present EXT: No clubbing cyanosis or edema NEURO: Alert and oriented X4, follows commands Vital Signs (last 8hr) Date Time Temp Pulse Resp B/P (MAP) Pulse Ox O2 Delivery O2 Flow Rate FiO2 06/11/25 07:27 99.0 06/11/25 06:00 94 22 105/65 94 Room Air 06/11/25 05:00 99.7 106 20 119/67 95 Room Air 06/11/25 04:57 100.6 06/11/25 04:00 100.6 114 22 122/77 95 Room Air 06/11/25 04:00 98 Room Air* 0 21 06/11/25 03:00 101 16 116/79 95 Room Air LABS: Hematology Labs: Test 06/11/25 04:52 06/10/25 12:55 Range/Units White Blood Count 12.5 H 4.8-10.8 K/uL Red Blood Count 4.37 L 4.50-6.20 MIL/uL Hemoglobin 13.4 L 14.0-18.0 g/dL Hematocrit 36.6 L 42-54 % Mean Corpuscular Volume 83.8 79-99 fL Mean Corpuscular Hemoglobin 30.7 27.0-33.0 pg Mean Corpuscular Hemoglobin Concent 36.6 H 32.0-36.0 g/dL Red Cell Distribution Width 12.7 11.0-15.5 % Platelet Count 291 130-400 K/uL Mean Platelet Volume 9.7 7.5-10.5 fL Immature Granulocyte % (Auto) 0.7 0-1 % Neutrophils (%) (Auto) 80.9 H 40.0-77.0 % Lymphocytes (%) (Auto) 12.3 L 21.0-51.0 % Monocytes (%) (Auto) 4.8 3.0-13.0 % Eosinophils (%) (Auto) 0.7 0.0-8.0 % Basophils (%) (Auto) 0.6 0.0-5.0 % Neutrophils # (Auto) 10.1 H 1.8-7.7 K/uL Lymphocytes # (Auto) 1.5 1.0-4.8 K/uL Monocytes # (Auto) 0.6 0.1-1.0 K/uL Eosinophils # (Auto) 0.09 0.00-0.70 K/uL Basophils # (Auto) 0.07 0.00-0.20 K/uL Absolute Immature Granulocyte (auto 0.09 0-1 K/uL Nucleated Red Blood Cells 0.0 0.0-0.19 % Segmented Neutrophils % 81 H 40-70 % Band Neutrophils % 1 0-2 % Lymphocytes % (Manual) 13 L 22-44 % Monocytes % (Manual) 5 2-9 % Differential Comment MANUAL DIFFERENTIAL White Cell Morphology Comment Platelet Morphology Comment ADEQUATE Red Blood Cell Morphology ANISO 1+ Chemistry Labs: Test 06/11/25 09:57 06/11/25 04:52 06/10/25 20:09 06/10/25 16:36 Range/Units Whole Blood Glucose 164 H 70-110 MG/DL Sodium Level 131 L 136-145 mmol/L Potassium Level 4.1 3.5-5.1 mmol/L Chloride Level 103 101-111 mmol/L Carbon Dioxide Level 19 L 21-32 mmol/L Blood Urea Nitrogen 6 L 7-18 mg/dL Creatinine 0.7 0.5-1.3 mg/dL Glomerular Filtration Rate Calc 119 >90 mL/min Random Glucose 226 H 70-105 mg/dL Hemoglobin A1c 12.7 H 4.0-6.0 % Estimated Average Glucose (eAG) 318 H 70-126 mg/dL Total Calcium 7.8 L 8.5-10.1 mg/dL Magnesium Level 1.40 L 1.80-2.40 mg/dL Total Bilirubin 1.4 #H 0.2-1.0 mg/dL Aspartate Amino Transf (AST/SGOT) 40 H 10-37 U/L Alanine Aminotransferase (ALT/SGPT) 16 12-78 U/L Alkaline Phosphatase 112 # 50-136 U/L Total Protein 6.6 6.0-8.3 g/dL Albumin 2.4 #L 3.5-5.0 g/dL Triglycerides Level 1020 H 30-200 mg/dL Cholesterol Level 206 #H <200 mg/dL LDL Cholesterol 27 0-99 mg/dL HDL Cholesterol 24 L 29-71 mg/dL Lipase 293 H 16-77 U/L Thyroid Stimulating Hormone (TSH) 0.93 0.36-3.74 uIU/mL Lactic Acid Level 1.1 0.8-2.5 mmol/L Bedside Glucose Comment Notified Nurse Test 06/10/25 14:19 06/10/25 12:55 Range/Units Whole Blood Ketones Quantitative 0.6 0.0-0.6 mmol/L Lactate Dehydrogenase 285 H 81-234 U/L C-Reactive Protein, Quantitative 84.90 H 0.5-3.0 mg/L Procalcitonin 0.10 0.05-0.5 ng/mL Direct Bilirubin 0.1 0.0-0.3 mg/dL Coagulation Labs: Test 06/10/25 17:00 06/10/25 14:19 Range/Units Activated Partial Thromboplast Time 25.8 L 26.3-35.5 SEC Prothrombin Time 10.3 9.6-11.6 SEC Prothromb Time International Ratio 0.97 0.85-1.15 DIAGNOSTICS / RADIOLOGY RESULTS: [ ] PLAN NEURO: Minimize central acting medications as possible. Fall Precautions. Well lighted room through the day and minimize interruptions through the night to prevent acute delirium. PULMONARY: Supplemental 02 as needed Titrate Fio2 to keep Spo2 > or = 90% DuoNebs and CPT as needed IS hourly while awake for pulmonary hygiene Out of bed to chair as tolerated VAP Bundle CARDIOVASCULAR: Follow hemodynamics. Titrate vasopressor to keep MAP >65 or systolic blood pressure >95mmHg GI & NUTRITION: Continue nutritional support Aspirations precautions Prokinetic agents and laxatives as needed KIDNEYS & ELECTROLYTES: Strict monitoring of intake and output Daily weights Avoid nephrotoxic agents Monitor electrolytes and replace as needed Goal urine output of 30mL/hr or 0.5mL/kg/hr ENDOCRINE: Maintain blood glucose between 100-180 at all times. Insulin sliding scale for blood glucose management INFECTIOUS DISEASE: Trend temperature. Cevallos-culture if febrile. HEMATOLOGY & COAGULATION: Monitor H&H. Keep Hgb > 7 Transfuse 1 unit of PRBC for Hgb < 7 Transfuse 1 pack of platelets of platelets < 20, 000 Watch for any signs and symptoms of bleeding SKIN: Pressure ulcer prevention per facility protocol Rehab: PT/OT Code Status: Full Resuscitation Disposition: [Admit to ICU] SIMI CLEMENS PAC Jun 11, 2025 10:12
--- NOTE | 2025-06-11 11:07 | PN ---
[facility] PROGRESS NOTE Date of Service: Jun 11, 2025 Time of Service: 11:05 SUBJECTIVE: This is a 39-year-old male with underlying history of type 2 diabetes mellitus, history of recurrent pancreatitis, with history of hypertriglyceridemia, who presented to the ER for further evaluation of [id number] epigastric and and left upper quadrant pain that started close to 8:00 a.m. today. Pain was 8/10 in intensity with associated nausea. Patient states that pain is similar to his previous hospitalization in [facility] in 12/2024 when he was admitted with DKA, severe hypertriglyceridemia and acute pancreatitis. Patient states that he recently ran out of his cholesterol medication including fish oil and Lipitor. He also reports that his primary care provider recently stopped his diabetic medication and he has not taken his diabetic medications for several weeks. Patient denies any chest pain, shortness of breath, focal weakness or upper or lower extremities. On presentation to the hospital, patient was noted to have T-max of 99.9 F, heart rate of 106, blood pressure 133/81. Labs [place] [address], hemoglobin of 16.6, platelet count of 721219. CMP showed sodium of 127, potassium 3.6, chloride of 100, bicarb of 17, creatinine 0.8, blood glucose of 359, lipase of 308, triglycerides of 1949. Patient will be admitted to ICU for further management of severe hypertriglyceridemia causing recurrent acute pancreatitis. We will follow up results of liver enzymes. Patient will be admitted to ICU and will receive aggressive IV hydration and will be initiated on insulin drip. Abdominal CT will be obtained as well for further evaluation. 11/06/2025: The patient was seen and evaluated in room 216 and currently denies nausea, abdominal pain, or other new complaints. Given a urine protein level of 30, a urine jfknuhv-dz-fazejqcbdz ratio has been ordered to assess renal involvement. The patient is receiving intravenous fluids and the diet is being advanced to clear liquids as tolerated. Due to bibasilar airspace disease seen on chest X- ray and a positive Group A Streptococcus test, a CT chest has been ordered to evaluate for possible lung infection. Endocrine consultation is pending to address poorly controlled diabetes with an HbA1c of 12.7%, and blood glucose levels will continue to be closely monitored. CT Abdomen showed features of acute interstitial edematous pancreatitis, Small hypodense lesion in the tail of pancreas possibly pseudocyst versus side branch IPMN. REVIEW OF SYSTEMS CONSTITUTIONAL: Denies fevers, chills, or night sweats. No unintentional weight loss reported. NEUROLOGICAL: Denies headache, amaurosis fugax, motor weakness, sensory deficit, vertigo/spinning sensation, gait abnormalities, or tremors. ENT: No hearing loss, otalgia, otorrhea, rhinitis, rhinorrhea, hoarseness, or sore throat. CARDIOVASCULAR: Denies any exertional angina, dyspnea on exertion, orthopnea, paroxysmal nocturnal dyspnea, palpitations, life-threatening arrhythmias, claudication. PULMONARY: Denies any shortness of breath, cough, phlegm/sputum, hemoptysis, pleuritic chest pain. SLEEP: Denies morning headaches, daytime somnolence or napping. Denies difficulty falling asleep, staying asleep, waking from sleep. Denies knowledge of snoring. GASTROINTESTINAL: Denies abdominal pain, nausea, diarrhea or vomiting GENITOURINARY: Denies frequency, urgency, nocturia, hematuria or incontinence (Storage/Irritative symptoms.) Low urinary stream, straining to void, urinary intermittency or hesitancy, splitting of the voiding stream, terminal dribbling. ENDOCRINOLOGIC: Denies polyuria, polydipsia, polyphagia or heat/cold intolerances. HEMATOLOGIC: Denies thrombophilia/previous clots, or coagulopathy/bleeding disorders. ONCOLOGIC: Denies personal history of malignancy. DERMATOLOGIC: Denies rashes or pruritus. PSYCHIATRIC: Denies any suicidal or homicidal ideation. Denies hallucinations. PHYSICAL EXAM GENERAL APPEARANCE: The patient is awake, alert, and oriented, in no acute cardiopulmonary distress. NEUROLOGICAL: Motor is 5/5 in bilateral upper and lower extremities proximal to distal. No sensory deficits. HEENT: Face is symmetric. Pupils are equal and reactive. Extraocular movements are intact. NECK: Supple. No JVD. No thyromegaly. No submental, submandibular, pre- /postauricular, occipital or supraclavicular lymphadenopathy. CHEST: Normal chest expansion. No Telemetry. LUNGS: Absence of any rales, rhonchi or any wheezing. CARDIOVASCULAR: Regular. S1 and S2 normal. No appreciable rubs, murmurs or gallops. ABDOMEN: Soft, mild tenderness to palpation of the epigastric and left upper quadrant region, there is no rebound or guarding : Deferred. No [place]. EXTREMITIES: Non-edematous and not cyanotic. No clubbing. Good capillary refill. SKIN: No skin breakdown. Vital Signs (last 8hr) Date Time Temp Pulse Resp B/P (MAP) Pulse Ox O2 Delivery O2 Flow Rate FiO2 06/11/25 10:00 95 22 122/71 97 Room Air 21 06/11/25 09:00 91 18 103/61 94 Room Air 21 06/11/25 08:00 94 19 107/69 95 Room Air 21 06/11/25 07:27 99.0 06/11/25 07:00 101 22 105/65 94 Room Air 21 06/11/25 06:00 94 22 105/65 94 Room Air 06/11/25 05:00 99.7 106 20 119/67 95 Room Air 06/11/25 04:57 100.6 06/11/25 04:00 100.6 114 22 122/77 95 Room Air 06/11/25 04:00 98 Room Air* 0 21 LABS: Laboratory: Test 06/11/25 09:57 06/11/25 04:52 06/10/25 20:09 06/10/25 20:04 Range/Units Whole Blood Glucose 164 H 70-110 MG/DL White Blood Count 12.5 H 4.8-10.8 K/uL Red Blood Count 4.37 L 4.50-6.20 MIL/uL Hemoglobin 13.4 L 14.0-18.0 g/dL Hematocrit 36.6 L 42-54 % Mean Corpuscular Volume 83.8 79-99 fL Mean Corpuscular Hemoglobin 30.7 27.0-33.0 pg Mean Corpuscular Hemoglobin Concent 36.6 H 32.0-36.0 g/dL Red Cell Distribution Width 12.7 11.0-15.5 % Platelet Count 291 130-400 K/uL Mean Platelet Volume 9.7 7.5-10.5 fL Immature Granulocyte % (Auto) 0.7 0-1 % Neutrophils (%) (Auto) 80.9 H 40.0-77.0 % Lymphocytes (%) (Auto) 12.3 L 21.0-51.0 % Monocytes (%) (Auto) 4.8 3.0-13.0 % Eosinophils (%) (Auto) 0.7 0.0-8.0 % Basophils (%) (Auto) 0.6 0.0-5.0 % Neutrophils # (Auto) 10.1 H 1.8-7.7 K/uL Lymphocytes # (Auto) 1.5 1.0-4.8 K/uL Monocytes # (Auto) 0.6 0.1-1.0 K/uL Eosinophils # (Auto) 0.09 0.00-0.70 K/uL Basophils # (Auto) 0.07 0.00-0.20 K/uL Absolute Immature Granulocyte (auto 0.09 0-1 K/uL Nucleated Red Blood Cells 0.0 0.0-0.19 % Sodium Level 131 L 136-145 mmol/L Potassium Level 4.1 3.5-5.1 mmol/L Chloride Level 103 101-111 mmol/L Carbon Dioxide Level 19 L 21-32 mmol/L Blood Urea Nitrogen 6 L 7-18 mg/dL Creatinine 0.7 0.5-1.3 mg/dL Glomerular Filtration Rate Calc 119 >90 mL/min Random Glucose 226 H 70-105 mg/dL Hemoglobin A1c 12.7 H 4.0-6.0 % Estimated Average Glucose (eAG) 318 H 70-126 mg/dL Total Calcium 7.8 L 8.5-10.1 mg/dL Magnesium Level 1.40 L 1.80-2.40 mg/dL Total Bilirubin 1.4 #H 0.2-1.0 mg/dL Aspartate Amino Transf (AST/SGOT) 40 H 10-37 U/L Alanine Aminotransferase (ALT/SGPT) 16 12-78 U/L Alkaline Phosphatase 112 # 50-136 U/L Total Protein 6.6 6.0-8.3 g/dL Albumin 2.4 #L 3.5-5.0 g/dL Triglycerides Level 1020 H 30-200 mg/dL Cholesterol Level 206 #H <200 mg/dL LDL Cholesterol 27 0-99 mg/dL HDL Cholesterol 24 L 29-71 mg/dL Lipase 293 H 16-77 U/L Thyroid Stimulating Hormone (TSH) 0.93 0.36-3.74 uIU/mL Lactic Acid Level 1.1 0.8-2.5 mmol/L Influenza Type A Antigen Negative For Type A NEGATIVE Influenza Type B Antigen Negative For Type B NEGATIVE SARS-CoV-2, RNA, NAAT NEGATIVE SARS CoV-2 NEGATIVE Group A Streptococcus Rapid positive *A NEGATIVE Test 06/10/25 17:00 06/10/25 16:36 06/10/25 14:22 06/10/25 14:19 Range/Units Activated Partial Thromboplast Time 25.8 L 26.3-35.5 SEC Bedside Glucose Comment Notified Nurse Blood Gas Specimen Type Venous Arterial Blood Oxygen Saturation 85.7 L 94.0-98.0 % Venous Blood pH 7.373 7.320-7.430 Venous Blood pCO2 at Patient Temp 32 L 38-54 Venous Blood pO2 at Patient Temp 50.7 H 23.0-48.0 mmHg Venous Blood HCO3 18.0 L 22.0-29.0 Venous Blood Base Excess -6.0 L -2.0-3.0 Venous Blood Total Hemoglobin 14.1 13.5-17.5 Sodium (Blood Gas) 136 136-145 MMOL/L Bedside Potassium (Blood Gas) 3.6 3.4-4.5 MMOL/L Bedside Chloride (Blood Gas) 108 H 98-107 MMOL/L Bedside Glucose (Blood Gas) 230 H 65-95 MG/DL Bedside Ionized Calcium (Blood Gas) 1.14 L 1.15-1.33 MMOL/L Bedside Lactic Acid (Blood Gas) 1.33 H 0.36-0.75 MMOL/L Blood Gas Temperature 37.0 35.5-37.0 CELSIUS Blood Gas Vent Mode RA ROOM AIR FiO2 21.0 % Blood Gas Specimen Comment AHKAN Prothrombin Time 10.3 9.6-11.6 SEC Prothromb Time International Ratio 0.97 0.85-1.15 Whole Blood Ketones Quantitative 0.6 0.0-0.6 mmol/L Lactate Dehydrogenase 285 H 81-234 U/L C-Reactive Protein, Quantitative 84.90 H 0.5-3.0 mg/L Procalcitonin 0.10 0.05-0.5 ng/mL Test 06/10/25 13:15 06/10/25 12:55 Range/Units Urine Color LIGHT-YELLOW YELLOW Urine Appearance CLEAR CLEAR Urine pH 7.0 5.0-8.0 Urine Specific [place] 1.043 1.001-1.031 Urine Protein 30 H NEGATIVE mg/dL Urine Glucose (UA) >=1000 H NEGATIVE mg/dL Urine Ketones 40 H NEGATIVE mg/dL Urine Occult Blood NEGATIVE NEGATIVE Urine Nitrate NEGATIVE NEGATIVE Urine Bilirubin NEGATIVE NEGATIVE mg/dL Urine Urobilinogen 0.2 0.2-1.0 mg/dL Urine Leukocyte Esterase NEGATIVE NEGATIVE Shanita/uL Urine RBC 0-1 0-1 /HPF Urine WBC 0-1 0-1 /HPF Urine Bacteria None None Seen /HPF Segmented Neutrophils % 81 H 40-70 % Band Neutrophils % 1 0-2 % Lymphocytes % (Manual) 13 L 22-44 % Monocytes % (Manual) 5 2-9 % Differential Comment MANUAL DIFFERENTIAL White Cell Morphology Comment Platelet Morphology Comment ADEQUATE Red Blood Cell Morphology ANISO 1+ Direct Bilirubin 0.1 0.0-0.3 mg/dL Current Medications Medications (Trade) Dose Ordered Sig/Josee Route PRN Reason Start Time Stop Time Status Last Admin Dose Admin Acetaminophen (TYLenol 325MG TAB) 650 mg Q6H PRN PO MILD PAIN (1-3) 06/10/25 15:00 07/10/25 14:59 06/11/25 04:57 650 MG Albuterol (DUOneb) 1 udvial Q6H PRN IH SHORTNESS OF BREATH 06/10/25 15:00 07/10/25 14:59 Atorvastatin Calcium (LIPItor 20MG) 20 mg HS PO 06/10/25 21:00 07/10/25 20:59 06/10/25 20:34 20 MG Dextrose/Sodium Chloride 1,000 ml @ 0 mls/hr AD IV 06/10/25 15:00 07/10/25 14:59 Enoxaparin Sodium (Lovenox) 40 mg DAILY SQ 06/11/25 09:00 07/11/25 08:59 06/11/25 09:08 40 MG Fenofibrate (Tricor) 145 mg DAILY PO 06/11/25 09:00 07/11/25 08:59 06/11/25 09:08 145 MG Fish Oil (Fish Oil 1000 Mg/Cap) 2,000 mg BID PO 06/10/25 21:00 07/10/25 20:59 06/11/25 09:09 2,000 MG Hydromorphone HCl (DiLAUDid 1MG INJ) 0.5 mg Q6H PRN IVP SEVERE PAIN (7-10) 06/10/25 19:30 06/15/25 19:29 Insulin Human Regular 100 unit/ Sodium Chloride 100 ml @ 0 mls/hr PROTOCOL PRN IV HYPERGYLCEMIA PROTOCOL 06/10/25 15:30 07/10/25 15:29 06/11/25 03:32 7 MLS/HR Insulin Human Regular 100 unit/ Sodium Chloride 101 ml @ 0 mls/hr PROTOCOL IV 06/10/25 15:00 06/10/25 15:09 DC Ketorolac Tromethamine (toRADol) 30 mg Q6H PRN IVP MODERATE PAIN (4-6) 06/10/25 19:30 06/15/25 19:29 06/10/25 20:55 30 MG Lactated Ringer's 1,000 ml @ 150 mls/hr Q6H40M IV 06/11/25 07:30 07/11/25 07:29 06/11/25 09:08 150 MLS/HR Levofloxacin/ Dextrose 100 ml @ 100 mls/hr DAILY20 IV 06/11/25 20:00 06/20/25 18:59 Levofloxacin/ Dextrose 100 ml @ 100 mls/hr Q24H IV 06/10/25 19:00 06/11/25 07:57 DC 06/10/25 20:33 100 MLS/HR Magnesium Sulfate 50 ml @ 0 mls/hr PROTOCOL IV 06/10/25 15:00 07/10/25 14:59 06/11/25 06:02 25 MLS/HR Morphine Sulfate (morPHINE 2MG SYG) 2 mg Q6H PRN IVP SEVERE PAIN (7-10) 06/10/25 15:00 06/10/25 20:08 DC Multivitamins Therapeutic (Multivitamin Tablet) 1 tab DAILY PO 06/11/25 09:00 07/11/25 08:59 06/11/25 09:08 1 TAB Ondansetron HCl (zoFRAN 4MG INJ) 4 mg Q6H PRN IVP NAUSEA/VOMITING 06/10/25 15:00 07/10/25 14:59 Pantoprazole Sodium (PROTonix 40MG INJ) 40 mg DAILY IVP 06/11/25 08:00 07/10/25 14:59 06/11/25 09:12 40 MG Pantoprazole Sodium (PROTonix 40MG INJ) 40 mg Q24H IVP 06/10/25 15:00 06/11/25 07:57 DC 06/10/25 15:51 40 MG Pharmacy Profile Note (Pharmacy Communication) 1 each ONCE MISC 06/10/25 15:30 06/10/25 15:14 DC Potassium Chloride 20 meq/ Sodium Chloride 1,010 ml @ 0 mls/hr PROTOCOL IV 06/10/25 15:00 07/10/25 14:59 Potassium Chloride/Dextrose/ Sod Cl 1,000 ml @ 0 mls/hr AD IV 06/10/25 15:00 07/10/25 14:59 06/11/25 07:38 150 MLS/HR Potassium Chloride 100 ml @ 100 mls/hr AD PRN IV POTASSIUM PROTOCOL 06/10/25 15:00 07/10/25 14:59 Potassium Chloride (K-Dur/Klor-Con 20meq) 20 meq AD PRN PO POTASSIUM PROTOCOL 06/10/25 15:00 07/10/25 14:59 Potassium Chloride (KCl 10% Elixir 20meq/15ml) 20 meq AD PRN PO POTASSIUM PROTOCOL 06/10/25 15:00 07/10/25 14:59 Sodium Chloride 1,000 ml @ 0 mls/hr Q0M IV 06/10/25 13:30 06/10/25 14:43 DC 06/10/25 13:24 999 MLS/HR Sodium Chloride 1,000 ml @ 200 mls/hr PROTOCOL IV 06/10/25 15:00 06/10/25 14:48 DC DIAGNOSTICS / RADIOLOGY: [place] [address] [place] [address] IMAGING REPORT Addendum PATIENT: BIN PEOPLES MR#: [id number] : 1985 SEX: M AGE: 39 LOCATION: 2CH ORDER 1550 STATUS: ADM IN REPORT#: [id number] SERVICE 1548 REASON: concern for acute pancreatitis,hx of severe hypertryglcyeridemia ORDERING PHYSICIAN: DOMINIC SMITH MD PROCEDURE: ABD PEL W - CT ABDOMEN/PELVIS W/CONTRAST ADDENDUM REPORT ADDENDUM: Results were shared by telephone at 06:17 PM EST on 06-10-[address] Dominic Smith /[place] EXAM: CT Abdomen and Pelvis with IV contrast CLINICAL HISTORY: Concern for acute pancreatitis. History of severe hypertriglyceridemia. TECHNIQUE: Thin collimated axial CT images of the abdomen and pelvis were obtained with sagittal and coronal reformatted images also submitted. CT scan done according to ALARA (As Low As Reasonably Achievable). CONTRAST: Yes. COMPARISON: None. FINDINGS: Multifocal airspace disease within the bilateral lower lobes may reflect an infectious and/inflammatory process. There is no focal abnormality appreciated within the adrenals, or kidneys. Severe hepatomegaly measuring approximately 23 cm in the craniocaudal span. Two, radiopaque calculi noted in the gallbladder, largest measuring approximately 1.6 cm. Body and tail of pancreas is mildly bulky with moderate surrounding inflammation, predominantly around the distal body and tail region. Focal hypodense area noted in the tail of pancreas measuring approximately 8 mm. Small, old calcified granuloma noted in the upper pole of spleen. There is no obvious bowel wall thickening. Bowel loops are normal in caliber without evidence of obstruction or ileus. The appendix is normal. There is no abnormality within the urinary bladder. Unremarkable re-productive organs. Aorta is normal in caliber. Mild atheromatous wall calcifications of the aorta. No lymphadenopathy. Suspected minimal free fluid in the left side of pelvis extending up to the left inguinal canal. There is no acute osseous abnormality. Surgical clips noted in the right retroperitoneum. IMPRESSIONS: Features of acute intersttitial edematous pancreatitis. Small hypodense lesion in the tail of pancreas possibly pseudocyst versus side branch IPMN. Recommend follow-up MRI. Suspected minimal free fluid in the left side of pelvis extending up to the left inguinal canal. Severe hepatomegaly. Cholelithiasis. /[place] DICTATED BY: MARY VIZCAINO Jr., MD DATE: 06/10/251818 ELECTRONICALLY SIGNED BY: DATE: EXAM: CT Abdomen and Pelvis with IV contrast CLINICAL HISTORY: Concern for acute pancreatitis. History of severe hypertriglyceridemia. TECHNIQUE: Thin collimated axial CT images of the abdomen and pelvis were obtained with sagittal and coronal reformatted images also submitted. CT scan done according to ALARA (As Low As Reasonably Achievable). CONTRAST: Yes. COMPARISON: None. FINDINGS: Multifocal airspace disease within the bilateral lower lobes may reflect an infectious and/inflammatory process. There is no focal abnormality appreciated within the adrenals, or kidneys. Severe hepatomegaly measuring approximately 23 cm in the craniocaudal span. Two, radiopaque calculi noted in the gallbladder, largest measuring approximately 1.6 cm. Body and tail of pancreas is mildly bulky with moderate surrounding inflammation, predominantly around the distal body and tail region. Focal hypodense area noted in the tail of pancreas measuring approximately 8 mm. Small, old calcified granuloma noted in the upper pole of spleen. There is no obvious bowel wall thickening. Bowel loops are normal in caliber without evidence of obstruction or ileus. The appendix is normal. There is no abnormality within the urinary bladder. Unremarkable re-productive organs. Aorta is normal in caliber. Mild atheromatous wall calcifications of the aorta. No lymphadenopathy. Suspected minimal free fluid in the left side of pelvis extending up to the left inguinal canal. There is no acute osseous abnormality. Surgical clips noted in the right retroperitoneum. IMPRESSIONS: Features of acute intersttitial edematous pancreatitis. Small hypodense lesion in the tail of pancreas possibly pseudocyst versus side branch IPMN. Recommend follow-up MRI. Suspected minimal free fluid in the left side of pelvis extending up to the left inguinal canal. Severe hepatomegaly. Cholelithiasis. /[place] DICTATED BY: MARY VIZCAINO Jr., MD DATE: 06/10/251811 ELECTRONICALLY SIGNED BY: MARY VIZCAINO Jr., MD DATE: 06/10/251811 [place] [address] [address] IMAGING REPORT Signed PATIENT: BIN PEOPLES MR#: [id number] : 1985 SEX: M AGE: 39 LOCATION: [facility] ORDER [id number] STATUS: ADM IN REPORT#: [id number] SERVICE 35 REASON: r/o significant infiltrates ORDERING PHYSICIAN: DOMINIC SMITH MD PROCEDURE: CXR1VW - CHEST 1VW EXAM: CR Chest, 1 View. CLINICAL HISTORY: r/o significant infiltrates COMPARISON: None provided. FINDINGS: LUNGS: Bibasilar airspace disease, presumed to reflect an infectious and/or inflammatory process. PLEURAL SPACES: No pleural effusion or pneumothorax. MEDIASTINUM: The cardiomediastinal silhouette is within normal limits. BONES: No aggressive appearing osseous lesion seen. IMPRESSION: 1. Bibasilar airspace disease, likely infectious or inflammatory. /[place] DICTATED BY: MARY VIZCAINO Jr., MD DATE: 06/10/251919 ELECTRONICALLY SIGNED BY: MARY VIZCAINO Jr., MD DATE: 06/10/251919 ASSESSMENT: Severe symptomatic hypertriglyceridemia, POA Acute pancreatitis, POA History of recurrent pancreatitis, POA Nonketotic uncontrolled hyperglycemia, POA Dehydration, POA Underlying history of ketosis prone diabetes mellitus, POA History of hyperlipidemia, POA History of pancreatic cyst measuring 0.9 cm, (on CT Abdomen/ Pelvis, 11/17), POA Strep group A Multifocal airspace disease within the bilateral lower lobes, per CT 06/10/2025 Severe hepatomegaly, per CT 06/10/25 Cholelithiasis, per CT 06/10/25 Electrolyte derangement (hyponatremia, hypochloremia hypocalcemia) Hyperglycemia in a type 2 noninsulin dependent diabetic Dehydration, POA PLAN: Severe symptomatic hypertriglyceridemia, POA, History of hyperlipidemia, POA Acute pancreatitis, POA, History of recurrent pancreatitis, POA, Non ketotic uncontrolled hyperglycemia, POA, Underlying history of ketosis prone diabetes mellitus, POA * Triglyceride level is close to 2000 with symptoms of acute pancreatitis, repeat labs show 1020 * Patient was advanced diet to clear liquids * Started patient on insulin drip starting at 0.1 units/kg/hour, * Received aggressive IV fluid resuscitation, we will titrate IV fluids to avoid any episodes of hypoglycemia, * Will maintain blood sugar checks q.1 hour while patient remains on insulin drip * Pain control with IV morphine * Consulted critical care service * Consultation with Endocrinology - pending * Electrolytes will be repleted per protocol including potassium and magnesium while patient remains on insulin drip * Started patient on Lipitor 20 mg daily, fish oil 1 g twice daily, as well as fenofibrate 145 mg * All labs will be repeated in the morning, we will check triglycerides tomorrow * Hemoglobin A1c - 12.7 * CT Abdomen shows Features of acute interstitial edematous pancreatitis, Small hypodense lesion in the tail of pancreas possibly pseudocyst versus side branch IPMN. Recommend follow-up MRI. Suspected minimal free fluid in the left side of pelvis extending up to the left inguinal canal. Severe hepatomegaly. Cholelithiasis. History of pancreatic cyst measuring 0.9 cm, (on CT Abdomen/ Pelvis, 11/17), POA * No acute intervention needed. * Will recommend outpatient GI follow-up with interval imaging monitoring Sepsis, Strep group A Positive Multifocal airspace disease within the bilateral lower lobes, per CT 06/10/2025 * CXR shows Bibasilar airspace disease, likely infectious or inflammatory. * CT chest ordered * Patient is on Levofloxacin (Day 2 ) * Will continue to monitor his vitals and temperature * Will monitor closely for signs of infection * Blood cultures will be obtained - report pending Dehydration, POA Electrolyte derangement (hyponatremia, hypochloremia hypocalcemia) * Will follow up with tomorrows labs * Continue IV fluids for volume repletion; adjust rate based on vitals, urine output, and labs. * Replace electrolytes as needed per hospital protocol. * Correct underlying drivers (hyperglycemia-related pseudohyponatremia, pancreatitis-related hypocalcemia). Cholelithiasis, per CT 06/10/25 * No signs of acute cholecystitis currently. * Will Monitor for biliary obstruction or worsening pain. Severe Hepatomegaly (CT 06/10/25) * Will evaluate LFT trends. * Avoid hepatotoxic medications. GI prophylaxis with Pantoprazole 40 mg DVT prophylaxis with Lovenox 40 mg SQ ATTESTATION BY PHYSICIAN I have seen and examined the patient. I reviewed the documentation, medical decision making, and treatment plan as noted by the resident provider above. I agree with the findings and plan of care. Jose Rivas MD, LAKSHMI MD Jun 11, 2025 11:07
--- NOTE | 2025-06-11 11:46 | NUR ---
DCP: HOME Pt lives in [facility], [place] with his Julieta Covarrub[phone] and their 18yro daughter. Family has food stamp assistance. 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 Pt has no DME or in home care services. PCP is Harish Alicea at [facility] for medical care and meds. Pt denies dc needs and will return home at ma
--- NOTE | 2025-06-11 17:13 | CONS ---
CONSULT NOTE: Endocrinology Consult Chief complaint:abdominal pain. Reason for consult: hypertriglyceridemia, uncontrolled dm-2 DOS:06/11/25 HISTORY OF PRESENT ILLNESS: This is a 39-year-old male with underlying history of type 2 diabetes mellitus, history of recurrent pancreatitis, with history of hypertriglyceridemia, who presented to the ER for further evaluation of [id number]-[id number] epigastric and and left upper quadrant pain. Patient states that pain is similar to his previous hospitalization in [facility] in 12/2024 when he was admitted with DKA, severe hypertriglyceridemia and acute pancreatitis. Patient states that he recently ran out of his cholesterol medication including fish oil and Lipitor. He also reports that his primary care provider recently stopped his diabetic medication and he has not taken his diabetic medications for several weeks. On presentation to the hospital, patient was noted to have T-max of 99.9 F, heart rate of 106, blood pressure 133/81. [place] [address], hemoglobin of 16.6, platelet count of 825544. CMP showed sodium of 127, potassium 3.6, chloride of 100, bicarb of 17, creatinine 0.8, blood glucose of 359, lipase of 308, triglycerides of 1949. triglyceride >1900 but now less than 100, amylase was >800 but now less than 200. lipase was greater than 500 but now less than 300. currently on dextrose drip, insulin drip at 7 units/hr. Home diabetic regimen: off atorvastatin, fenofibrate, fish oil. off lantus 50 units daily and off humalog insulin 25 units tid. Hba1c 12.75 REVIEW OF SYSTEMS CONSTITUTIONAL: Denies fevers, chills, or night sweats. No unintentional weight loss reported. NEUROLOGICAL: Denies headache, amaurosis fugax, motor weakness, sensory deficit, vertigo/spinning sensation, gait abnormalities, or tremors. ENT: No hearing loss, otalgia, otorrhea, rhinitis, rhinorrhea, hoarseness, or sore throat. CARDIOVASCULAR: Denies any exertional angina, dyspnea on exertion, orthopnea, paroxysmal nocturnal dyspnea, palpitations, life-threatening arrhythmias, claudication. PULMONARY: Denies any shortness of breath, cough, phlegm/sputum, hemoptysis, pleuritic chest pain. SLEEP: Denies morning headaches, daytime somnolence or napping. Denies difficulty falling asleep, staying asleep, waking from sleep. Denies knowledge of snoring. GASTROINTESTINAL: Nausea and [id number] abdominal pain that started t [place] GENITOURINARY: Denies frequency, urgency, nocturia, hematuria or incontinence (Storage/Irritative symptoms.) Low urinary stream, straining to void, urinary intermittency or hesitancy, splitting of the voiding stream, terminal dribbling. ENDOCRINOLOGIC: Denies polyuria, polydipsia, polyphagia or heat/cold intolerances. HEMATOLOGIC: Denies thrombophilia/previous clots, or coagulopathy/bleeding disorders. ONCOLOGIC: Denies personal history of malignancy. DERMATOLOGIC: Denies rashes or pruritus. PSYCHIATRIC: Denies any suicidal or homicidal ideation. Denies hallucinations. PAST MEDICAL HISTORY: Prior history of multiple episodes of pancreatitis, history of hypertriglyceridemia, underlying history of ketosis prone diabetes mellitus, history of testicular cancer in 2003 PAST SURGICAL HISTORY: History of left testicular orchiectomy PAST SOCIAL HISTORY: Denies active smoking or alcohol consumption FAMILY HISTORY: History of liver cancer in family Allergies: Patient has allergic reaction including anaphylaxis to penicillin Home medications: Reports being on fish oil and Lipitor as outpatient Coded Allergies: Penicillins (Verified Allergy, Severe, anaphylaxis, 01/01/25) PHYSICAL EXAM GENERAL APPEARANCE: The patient is awake, alert, and oriented, in no acute cardiopulmonary distress. NEUROLOGICAL: Cranial nerves II-XII grossly intact. Motor is 5/5 in bilateral upper and lower extremities proximal to distal. No sensory deficits. HEENT: Face is symmetric. Pupils are equal and reactive. Extraocular movements are intact. NECK: Supple. No JVD. No thyromegaly. No submental, submandibular, pre- /postauricular, occipital or supraclavicular lymphadenopathy. CHEST: Normal chest expansion. No Telemetry. LUNGS: Absence of any rales, rhonchi or any wheezing. CARDIOVASCULAR: Regular. S1 and S2 normal. No appreciable rubs, murmurs or gallops. ABDOMEN: Soft, mild tenderness to palpation of the epigastric and left upper quadrant region, there is no rebound or guarding : Deferred. No [place]. EXTREMITIES: Non-edematous and not cyanotic. No clubbing. Good capillary refill. SKIN: No skin breakdown. DIAGNOSTICS / RADIOLOGY: CT of the abdomen pelvis with IV contrast show pancreatitis. ASSESSMENT: Acute pancreatitis, POA triglyceride >1900 but now less than 100, amylase was >800 but now less than 200. lipase was greater than 300 but now less than 300. currently on dextrose drip, insulin drip at 7 units/hr. History of recurrent pancreatitis, POA Nonketotic uncontrolled hyperglycemia, POA Home diabetic regimen: off atorvastatin, fenofibrae, fish oil. off lantus 50 units daily and off humalog insulin 25 units tid. Hba1c 12.75 Severe symptomatic hypertriglyceridemia, POA likely familial with contribution from uncontrolled dm-2 and non-compliant to medications. Hypovolemic hyponatremia, POA improved Dehydration, POA Underlying history of ketosis prone diabetes mellitus, POA History of hyperlipidemia, POA History of pancreatic cyst measuring 0.9 cm, (on CT Abdomen/ Pelvis, 11/17), POA History of cholelithiasis, POA PLAN: continue insulin drip, dextrose drip and switch to insulin injections tomorrow. Monitor glucose q x 1 hourly. Continue carb consistent diet. Keep glucose less than 180 mg/dl. continue atorvastatin 20 mg daily, fenofibrate 145 mg daily, fish oil 1 mg tid. Patient will need cholesterol meds and insulin at discharge. Thanks for allowing me to participate in patient care and will continue to follow up. Vital Signs 06/11/25 06/11/25 06/11/25 12:00 16:00 16:34 Temp 99.3 Pulse 97 Resp 23 B/P (MAP) 110/74 Pulse Ox 95 O2 Delivery Room Air O2 Flow Rate 0 FiO2 21 Hematology Labs: Test 06/11/25 04:52 06/10/25 12:55 Range/Units White Blood Count 12.5 H 4.8-10.8 K/uL Red Blood Count 4.37 L 4.50-6.20 MIL/uL Hemoglobin 13.4 L 14.0-18.0 g/dL Hematocrit 36.6 L 42-54 % Mean Corpuscular Volume 83.8 79-99 fL Mean Corpuscular Hemoglobin 30.7 27.0-33.0 pg Mean Corpuscular Hemoglobin Concent 36.6 H 32.0-36.0 g/dL Red Cell Distribution Width 12.7 11.0-15.5 % Platelet Count 291 130-400 K/uL Mean Platelet Volume 9.7 7.5-10.5 fL Immature Granulocyte % (Auto) 0.7 0-1 % Neutrophils (%) (Auto) 80.9 H 40.0-77.0 % Lymphocytes (%) (Auto) 12.3 L 21.0-51.0 % Monocytes (%) (Auto) 4.8 3.0-13.0 % Eosinophils (%) (Auto) 0.7 0.0-8.0 % Basophils (%) (Auto) 0.6 0.0-5.0 % Neutrophils # (Auto) 10.1 H 1.8-7.7 K/uL Lymphocytes # (Auto) 1.5 1.0-4.8 K/uL Monocytes # (Auto) 0.6 0.1-1.0 K/uL Eosinophils # (Auto) 0.09 0.00-0.70 K/uL Basophils # (Auto) 0.07 0.00-0.20 K/uL Absolute Immature Granulocyte (auto 0.09 0-1 K/uL Nucleated Red Blood Cells 0.0 0.0-0.19 % Segmented Neutrophils % 81 H 40-70 % Band Neutrophils % 1 0-2 % Lymphocytes % (Manual) 13 L 22-44 % Monocytes % (Manual) 5 2-9 % Differential Comment MANUAL DIFFERENTIAL White Cell Morphology Comment Platelet Morphology Comment ADEQUATE Red Blood Cell Morphology ANISO 1+ Chemistry Labs: Test 06/11/25 16:30 06/11/25 04:52 06/10/25 20:09 06/10/25 16:36 Range/Units Whole Blood Glucose 117 H 70-110 MG/DL Sodium Level 131 L 136-145 mmol/L Potassium Level 4.1 3.5-5.1 mmol/L Chloride Level 103 101-111 mmol/L Carbon Dioxide Level 19 L 21-32 mmol/L Blood Urea Nitrogen 6 L 7-18 mg/dL Creatinine 0.7 0.5-1.3 mg/dL Glomerular Filtration Rate Calc 119 >90 mL/min Random Glucose 226 H 70-105 mg/dL Hemoglobin A1c 12.7 H 4.0-6.0 % Estimated Average Glucose (eAG) 318 H 70-126 mg/dL Total Calcium 7.8 L 8.5-10.1 mg/dL Magnesium Level 1.40 L 1.80-2.40 mg/dL Total Bilirubin 1.4 #H 0.2-1.0 mg/dL Aspartate Amino Transf (AST/SGOT) 40 H 10-37 U/L Alanine Aminotransferase (ALT/SGPT) 16 12-78 U/L Alkaline Phosphatase 112 # 50-136 U/L Total Protein 6.6 6.0-8.3 g/dL Albumin 2.4 #L 3.5-5.0 g/dL Triglycerides Level 1020 H 30-200 mg/dL Cholesterol Level 206 #H <200 mg/dL LDL Cholesterol 27 0-99 mg/dL HDL Cholesterol 24 L 29-71 mg/dL Lipase 293 H 16-77 U/L Thyroid Stimulating Hormone (TSH) 0.93 0.36-3.74 uIU/mL Lactic Acid Level 1.1 0.8-2.5 mmol/L Bedside Glucose Comment Notified Nurse Test 06/10/25 14:19 06/10/25 12:55 Range/Units Whole Blood Ketones Quantitative 0.6 0.0-0.6 mmol/L Lactate Dehydrogenase 285 H 81-234 U/L C-Reactive Protein, Quantitative 84.90 H 0.5-3.0 mg/L Procalcitonin 0.10 0.05-0.5 ng/mL Direct Bilirubin 0.1 0.0-0.3 mg/dL Coagulation Labs: Test 06/10/25 17:00 06/10/25 14:19 Range/Units Activated Partial Thromboplast Time 25.8 L 26.3-35.5 SEC Prothrombin Time 10.3 9.6-11.6 SEC Prothromb Time International Ratio 0.97 0.85-1.15 Current Medications Medications (Trade) Dose Ordered Sig/Josee Route Start Time Stop Time Status Last Admin Dose Admin Atorvastatin Calcium (LIPItor 20MG) 20 mg HS PO 06/10/25 21:00 07/10/25 20:59 06/10/25 20:34 20 MG Dextrose/Sodium Chloride 1,000 ml @ 0 mls/hr AD IV 06/10/25 15:00 07/10/25 14:59 Enoxaparin Sodium (Lovenox) 40 mg DAILY SQ 06/11/25 09:00 07/11/25 08:59 06/11/25 09:08 40 MG Fenofibrate (Tricor) 145 mg DAILY PO 06/11/25 09:00 07/11/25 08:59 06/11/25 09:08 145 MG Fish Oil (Fish Oil 1000 Mg/Cap) 2,000 mg BID PO 06/10/25 21:00 07/10/25 20:59 06/11/25 09:09 2,000 MG Insulin Human Regular 100 unit/ Sodium Chloride 101 ml @ 0 mls/hr PROTOCOL IV 06/10/25 15:00 06/10/25 15:09 DC Lactated Ringer's 1,000 ml @ 150 mls/hr Q6H40M IV 06/11/25 07:30 07/11/25 07:29 06/11/25 16:29 150 MLS/HR Levofloxacin/ Dextrose 100 ml @ 100 mls/hr DAILY20 IV 06/11/25 20:00 06/20/25 18:59 Levofloxacin/ Dextrose 100 ml @ 100 mls/hr Q24H IV 06/10/25 19:00 06/11/25 07:57 DC 06/10/25 20:33 100 MLS/HR Magnesium Sulfate 50 ml @ 0 mls/hr PROTOCOL IV 06/10/25 15:00 07/10/25 14:59 06/11/25 06:02 25 MLS/HR Multivitamins Therapeutic (Multivitamin Tablet) 1 tab DAILY PO 06/11/25 09:00 07/11/25 08:59 06/11/25 09:08 1 TAB Pantoprazole Sodium (PROTonix 40MG INJ) 40 mg DAILY IVP 06/11/25 08:00 07/10/25 14:59 06/11/25 09:12 40 MG Pantoprazole Sodium (PROTonix 40MG INJ) 40 mg Q24H IVP 06/10/25 15:00 06/11/25 07:57 DC 06/10/25 15:51 40 MG Pharmacy Profile Note (Pharmacy Communication) 1 each ONCE MISC 06/10/25 15:30 06/10/25 15:14 DC Potassium Chloride 20 meq/ Sodium Chloride 1,010 ml @ 0 mls/hr PROTOCOL IV 06/10/25 15:00 07/10/25 14:59 Potassium Chloride/Dextrose/ Sod Cl 1,000 ml @ 0 mls/hr AD IV 06/10/25 15:00 07/10/25 14:59 06/11/25 07:38 150 MLS/HR Sodium Chloride 1,000 ml @ 0 mls/hr Q0M IV 06/10/25 13:30 06/10/25 14:43 DC 06/10/25 13:24 999 MLS/HR Sodium Chloride 1,000 ml @ 200 mls/hr PROTOCOL IV 06/10/25 15:00 06/10/25 14:48 DC MAY ALAN MD Jun 11, 2025 17:13
[2025-06-11 20:26] LABS: CREATININE 0.8 mg/dL (0.5-1.3); GLOMERULAR FILTR. RATE CALC 115.0 mL/min (>90); GLUCOSE,RANDOM 145.0 mg/dL (70-105); SODIUM SERUM 136.0 mmol/L (136-145); UREA NITROGEN, BLOOD 5.0 mg/dL (7-18)
[2025-06-11] MEDS: PoTASSium chloRIDE 20MEQ ER 20 MEQ ERTAB PO PRN (22:08)
[2025-06-12] VITALS (34 sets, daily range): BP systolic 93–134; BP diastolic 51–77; PULSE 76–99; RESP 8–22; TEMP 98.1–99.9; O2SAT 95–99
[2025-06-12 04:53] LABS: IMMATURE GRANULOCYTE ABSOLUTE 0.09 K/uL (0-1); NUCLEATED RED BLOOD CELLS 0.0 % (0.0-0.19); PLATELET COUNT (AUTO) 220 K/uL (130-400); RED BLOOD CELL COUNT(AUTO) 3.71 MIL/uL (4.50-6.20); RED CELL DISTRIBUTION WIDTH 13.2 % (11.0-15.5); WHITE BLOOD COUNT (AUTO) 7.3 K/uL (4.8-10.8)
[2025-06-12 05:02] LABS: ASPARTATE AMINOTRANSFERASE 19.0 U/L (10-37); CREATININE 0.9 mg/dL (0.5-1.3); GLOMERULAR FILTR. RATE CALC 111.0 mL/min (>90); GLUCOSE,RANDOM 141.0 mg/dL (70-105); SODIUM SERUM 137.0 mmol/L (136-145); TOTAL PROTEIN, SERUM 6.2 g/dL (6.0-8.3); UREA NITROGEN, BLOOD 7.0 mg/dL (7-18)
[2025-06-12] MEDS: PoTASSium chl 10% ELIXIR 20MEQ 20 MEQ/15 ML UDCUP PO PRN (08:15)
[2025-06-12] MEDS ORDERED: GLUCAGON 1MG KIT 1 MG ML IM PRN (09:00)
[2025-06-12] MEDS ORDERED: DEXTROSE 50%-WATER 50 ML DISP.SYRIN IV PRN (09:00)
--- NOTE | 2025-06-12 11:48 | PN ---
[facility] PROGRESS NOTE Date Patient Seen: Jun 12, 2025 Time of Visit: 11:47 Supervising Physician: Dr Ronny Hammonds Primary Care Physician: Attending group: [employer] Hospitalist Team Outpatient Specialists: Inpatient Consults: BIS, critical care team [employer]punch Operator PROBLEM LIST: Pancreatitis secondary to hypertriglyceridemia Strep group a Multifocal airspace disease within the bilateral lower lobes, per CT 06/10/2025 Severe hepatomegaly, per CT 06/10/25 Cholelithiasis, per CT 06/10/25 Electrolyte derangement (hyponatremia, hypochloremia hypocalcemia) Hyperglycemia in a type 2 noninsulin dependent diabetic Dehydration, POA History of pancreatic cyst measuring 0.9 cm, (on CT Abdomen/ Pelvis, 11/17), POA INTERVAL HISTORY: Patient seen and examined, all labs and imaging have been reviewed, patient is awake alert and oriented, Patient was started on clear diet yesterday and is tolerating well Remains on an insulin drip however triglycerides are at 5:20 a.m.. There is a recheck in the next hour or so if below 500 we will turn off Continues on the fenofibrate and fish oil Anticipate downgrade this evening Plan: Continues with the insulin drip, blood glucose checks Q hour per protocol Monitor closely for hypoglycemia. Patient has D10 if needed NPO, fenofibrate, fish oil Statin Continues on the levofloxacin for his strep REVIEW OF SYSTEMS: 12 point ROS reviewed with patient. Pertinent positives mentioned above. Otherwise negative. PHYSICAL EXAM: GENERAL: Alert, weak, awake oriented x 4 HEENT: EOMI, Sclera non icteric, moist mucosa NECK: Supple, no JVD, trachea midline LUNGS: Clear breath sounds bilaterally. No wheezes HEART: Regular rate and rhythm. Normal S1 and S2, without murmurs ABD: Abdomen soft, nontender. Bowel sounds present EXT: No clubbing cyanosis or edema NEURO: Alert and oriented X4, follows commands Vital Signs (last 8hr) Date Time Temp Pulse Resp B/P (MAP) Pulse Ox O2 Delivery O2 Flow Rate FiO2 06/12/25 11:11 98.2 06/12/25 11:00 84 20 114/66 95 Room Air 21 06/12/25 10:00 87 22 110/63 94 Room Air 21 06/12/25 09:00 89 21 112/69 96 Room Air 06/12/25 08:06 18 N/A Room Air 06/12/25 08:00 87 21 118/77 94 Room Air 21 06/12/25 07:45 98.4 06/12/25 07:30 95 19 109/51 99 Room Air 06/12/25 07:00 76 15 93/61 95 Room Air 06/12/25 06:00 81 16 95 06/12/25 05:41 99 19 N/A Room Air 06/12/25 05:37 82 20 101/64 94 Room Air 06/12/25 05:30 84 19 95 06/12/25 05:30 84 19 95 06/12/25 05:00 81 8 96 06/12/25 04:37 80 17 101/60 94 Room Air 06/12/25 04:30 81 15 95 06/12/25 04:00 84 13 95 06/12/25 03:57 95 Room Air* 0 21 LABS: Hematology Labs: Test 06/12/25 04:31 06/10/25 12:55 Range/Units White Blood Count 7.3 # 4.8-10.8 K/uL Red Blood Count 3.71 L 4.50-6.20 MIL/uL Hemoglobin 11.2 L 14.0-18.0 g/dL Hematocrit 31.4 L 42-54 % Mean Corpuscular Volume 84.6 79-99 fL Mean Corpuscular Hemoglobin 30.2 27.0-33.0 pg Mean Corpuscular Hemoglobin Concent 35.7 32.0-36.0 g/dL Red Cell Distribution Width 13.2 11.0-15.5 % Platelet Count 220 130-400 K/uL Mean Platelet Volume 10.6 H 7.5-10.5 fL Immature Granulocyte % (Auto) 1.2 H 0-1 % Neutrophils (%) (Auto) 70.6 40.0-77.0 % Lymphocytes (%) (Auto) 18.6 L 21.0-51.0 % Monocytes (%) (Auto) 7.9 3.0-13.0 % Eosinophils (%) (Auto) 1.1 0.0-8.0 % Basophils (%) (Auto) 0.6 0.0-5.0 % Neutrophils # (Auto) 5.1 1.8-7.7 K/uL Lymphocytes # (Auto) 1.4 1.0-4.8 K/uL Monocytes # (Auto) 0.6 0.1-1.0 K/uL Eosinophils # (Auto) 0.08 0.00-0.70 K/uL Basophils # (Auto) 0.04 0.00-0.20 K/uL Absolute Immature Granulocyte (auto 0.09 0-1 K/uL Nucleated Red Blood Cells 0.0 0.0-0.19 % Segmented Neutrophils % 81 H 40-70 % Band Neutrophils % 1 0-2 % Lymphocytes % (Manual) 13 L 22-44 % Monocytes % (Manual) 5 2-9 % Differential Comment MANUAL DIFFERENTIAL White Cell Morphology Comment Platelet Morphology Comment ADEQUATE Red Blood Cell Morphology ANISO 1+ Chemistry Labs: Test 06/12/25 11:07 06/12/25 04:52 06/12/25 04:31 06/11/25 04:52 Range/Units Whole Blood Glucose 135 #H 70-110 MG/DL Magnesium Level 1.80 1.80-2.40 mg/dL Sodium Level 137 136-145 mmol/L Potassium Level 3.8 3.5-5.1 mmol/L Chloride Level 105 101-111 mmol/L Carbon Dioxide Level 25 21-32 mmol/L Blood Urea Nitrogen 7 7-18 mg/dL Creatinine 0.9 0.5-1.3 mg/dL Glomerular Filtration Rate Calc 111 >90 mL/min Random Glucose 141 H 70-105 mg/dL Total Calcium 8.2 L 8.5-10.1 mg/dL Total Bilirubin 0.7 # 0.2-1.0 mg/dL Aspartate Amino Transf (AST/SGOT) 19 10-37 U/L Alanine Aminotransferase (ALT/SGPT) 11 #L 12-78 U/L Alkaline Phosphatase 86 50-136 U/L Total Protein 6.2 6.0-8.3 g/dL Albumin 2.2 L 3.5-5.0 g/dL Triglycerides Level 520 H 30-200 mg/dL Hemoglobin A1c 12.7 H 4.0-6.0 % Estimated Average Glucose (eAG) 318 H 70-126 mg/dL Cholesterol Level 206 #H <200 mg/dL LDL Cholesterol 27 0-99 mg/dL HDL Cholesterol 24 L 29-71 mg/dL Lipase 293 H 16-77 U/L Thyroid Stimulating Hormone (TSH) 0.93 0.36-3.74 uIU/mL Test 06/10/25 20:09 06/10/25 16:36 06/10/25 14:19 06/10/25 12:55 Range/Units Lactic Acid Level 1.1 0.8-2.5 mmol/L Bedside Glucose Comment Notified Nurse Whole Blood Ketones Quantitative 0.6 0.0-0.6 mmol/L Lactate Dehydrogenase 285 H 81-234 U/L C-Reactive Protein, Quantitative 84.90 H 0.5-3.0 mg/L Procalcitonin 0.10 0.05-0.5 ng/mL Direct Bilirubin 0.1 0.0-0.3 mg/dL Coagulation Labs: Test 06/10/25 17:00 06/10/25 14:19 Range/Units Activated Partial Thromboplast Time 25.8 L 26.3-35.5 SEC Prothrombin Time 10.3 9.6-11.6 SEC Prothromb Time International Ratio 0.97 0.85-1.15 DIAGNOSTICS / RADIOLOGY RESULTS: [ ] PLAN NEURO: Minimize central acting medications as possible. Maintain fall precautions, adequate lighting during the day PULMONARY: Supplemental 02 as needed. Maintain aspiration precautions at all times CARDIOVASCULAR: Follow hemodynamics. Vital signs per facility protocol GI & NUTRITION: Continue with nutritional support. Continue stool softeners and laxatives as needed. KIDNEYS & ELECTROLYTES: Strict monitoring of intake, output and overall fluid balance. Avoid nephrotoxic medications to the extent possible. Medications to be dosed according to renal function. Monitor electrolytes and replace as needed ENDOCRINE: Maintain blood glucose between 100-180 at all times. Hypoglycemia protocol in place INFECTIOUS DISEASE: Trend temperature, WBC and procalcitonin level Follow cultures, deescalate antibiotics as soon as possible. Panculture if new onset fever ONCOLOGY/HEMATOLOGY/COAGULATION: Monitor for s/s of bleeding Monitor hemoglobin, coagulation studies as needed SKIN: Pressure ulcer prevention per facility protocol Specialty mattress ORTHO/REHAB: Continue PT/OT Prophylaxis: Continue GI and DVT prophylaxis Code Status: Full Resuscitation Disposition: SIMI CLEMENS Amanda PAC Jun 12, 2025 11:48
--- NOTE | 2025-06-12 13:55 | PN ---
[facility] PROGRESS NOTE Date of Service: Jun 12, 2025 Time of Service: 13:40 SUBJECTIVE: This is a 39-year-old male with underlying history of type 2 diabetes mellitus, history of recurrent pancreatitis, with history of hypertriglyceridemia, who presented to the ER for further evaluation of [id number] epigastric and and left upper quadrant pain that started close to 8:00 a.m. today. Pain was 8/10 in intensity with associated nausea. Patient states that pain is similar to his previous [place] [facility] when he was admitted with DKA, severe hypertriglyceridemia and acute pancreatitis. Patient states that he recently ran out of his cholesterol medication including fish oil and Lipitor. He also reports that his primary care provider recently stopped his diabetic medication and he has not taken his diabetic medications for several weeks. Patient denies any chest pain, shortness of breath, focal weakness or upper or lower extremities. On presentation to the hospital, patient was noted to have T-max of 99.9 F, heart rate of 106, blood pressure 133/81. [place] [address], hemoglobin of 16.6, platelet count of [id number]. CMP showed sodium of 127, potassium 3.6, chloride of 100, bicarb of 17, creatinine 0.8, blood glucose of 359, lipase of 308, triglycerides of 1949. Patient will be admitted to ICU for further management of severe hypertriglyceridemia causing recurrent acute pancreatitis. We will follow up results of liver enzymes. Patient will be admitted to ICU and will receive aggressive IV hydration and will be initiated on insulin drip. Abdominal CT will be obtained as well for further evaluation. 11/06/2025: The patient was seen and evaluated in room 216 and currently denies nausea, abdominal pain, or other new complaints. Given a urine protein level of 30, a urine hqmobqt-ja-[id number] ratio has been ordered to assess renal involvement. The patient is receiving intravenous fluids and the diet is being advanced to clear liquids as tolerated. Due to bibasilar airspace disease seen on chest X- ray and a positive Group A Streptococcus test, a CT chest has been ordered to evaluate for possible lung infection. Endocrine consultation is pending to address poorly controlled diabetes with an HbA1c of 12.7%, and blood glucose levels will continue to be closely monitored. CT Abdomen showed features of acute interstitial edematous pancreatitis, Small hypodense lesion in the tail of pancreas possibly pseudocyst versus side branch IPMN. 12/06/2025: Patient was seen and evaluated in room 216. He denies abdominal pain, nausea, or vomiting today. His triglyceride levels have improved to 520, allowing discontinuation of the insulin drip. He has been transitioned to subcutaneous insulin therapy, including 20 units of Lantus and 5 units of regular insulin with each meal, along with an insulin sliding scale. Diet has been advanced as tolerated to a carb-consistent plan. The patient has been downgraded from a higher level of care. Gastroenterology has been consulted for evaluation of recurrent pancreatitis and a pancreatic tail mass. REVIEW OF SYSTEMS CONSTITUTIONAL: Denies fevers, chills, or night sweats. No unintentional weight loss reported. NEUROLOGICAL: Denies headache, amaurosis fugax, motor weakness, sensory deficit, vertigo/spinning sensation, gait abnormalities, or tremors. ENT: No hearing loss, otalgia, otorrhea, rhinitis, rhinorrhea, hoarseness, or sore throat. CARDIOVASCULAR: Denies any exertional angina, dyspnea on exertion, orthopnea, paroxysmal nocturnal dyspnea, palpitations, life-threatening arrhythmias, claudication. PULMONARY: Denies any shortness of breath, cough, phlegm/sputum, hemoptysis, pleuritic chest pain. SLEEP: Denies morning headaches, daytime somnolence or napping. Denies difficulty falling asleep, staying asleep, waking from sleep. Denies knowledge of snoring. GASTROINTESTINAL: Denies abdominal pain, nausea, diarrhea or vomiting GENITOURINARY: Denies frequency, urgency, nocturia, hematuria or incontinence (Storage/Irritative symptoms.) Low urinary stream, straining to void, urinary intermittency or hesitancy, splitting of the voiding stream, terminal dribbling. ENDOCRINOLOGIC: Denies polyuria, polydipsia, polyphagia or heat/cold intolerances. HEMATOLOGIC: Denies thrombophilia/previous clots, or coagulopathy/bleeding disorders. ONCOLOGIC: Denies personal history of malignancy. DERMATOLOGIC: Denies rashes or pruritus. PSYCHIATRIC: Denies any suicidal or homicidal ideation. Denies hallucinations. PHYSICAL EXAM GENERAL APPEARANCE: The patient is awake, alert, and oriented, in no acute cardiopulmonary distress. NEUROLOGICAL: Motor is 5/5 in bilateral upper and lower extremities proximal to distal. No sensory deficits. HEENT: Face is symmetric. Pupils are equal and reactive. Extraocular movements are intact. NECK: Supple. No JVD. No thyromegaly. No submental, submandibular, pre-/postau ricular, occipital or supraclavicular lymphadenopathy. CHEST: Normal chest expansion. No Telemetry. LUNGS: Absence of any rales, rhonchi or any wheezing. CARDIOVASCULAR: Regular. S1 and S2 normal. No appreciable rubs, murmurs or gallops. ABDOMEN: Soft, mild tenderness to palpation of the epigastric and left upper quadrant region, there is no rebound or guarding : Deferred. No [place]. EXTREMITIES: Non-edematous and not cyanotic. No clubbing. Good capillary refill. SKIN: No skin breakdown. Vital Signs (last 8hr) Date Time Temp Pulse Resp B/P (MAP) Pulse Ox O2 Delivery O2 Flow Rate FiO2 06/12/25 11:11 98.2 06/12/25 11:00 84 20 114/66 95 Room Air 06/12/25 10:00 87 22 110/63 94 Room Air 06/12/25 09:00 89 21 112/69 96 Room Air 21 06/12/25 08:06 18 N/A Room Air 21 06/12/25 08:00 87 21 118/77 94 Room Air 21 06/12/25 07:45 98.4 06/12/25 07:30 99 Room Air* 0 21 06/12/25 07:30 95 19 109/51 99 Room Air 21 06/12/25 07:00 76 15 93/61 95 Room Air 06/12/25 06:00 81 16 95 06/12/25 05:41 99 19 N/A Room Air 21 LABS: Laboratory: Test 06/12/25 12:18 06/12/25 11:07 06/12/25 04:31 06/11/25 04:52 Range/Units Potassium Level 3.9 3.5-5.1 mmol/L Magnesium Level 2.30 1.80-2.40 mg/dL Triglycerides Level 563 H 30-200 mg/dL Whole Blood Glucose 135 #H 70-110 MG/DL White Blood Count 7.3 # 4.8-10.8 K/uL Red Blood Count 3.71 L 4.50-6.20 MIL/uL Hemoglobin 11.2 L 14.0-18.0 g/dL Hematocrit 31.4 L 42-54 % Mean Corpuscular Volume 84.6 79-99 fL Mean Corpuscular Hemoglobin 30.2 27.0-33.0 pg Mean Corpuscular Hemoglobin Concent 35.7 32.0-36.0 g/dL Red Cell Distribution Width 13.2 11.0-15.5 % Platelet Count 220 130-400 K/uL Mean Platelet Volume 10.6 H 7.5-10.5 fL Immature Granulocyte % (Auto) 1.2 H 0-1 % Neutrophils (%) (Auto) 70.6 40.0-77.0 % Lymphocytes (%) (Auto) 18.6 L 21.0-51.0 % Monocytes (%) (Auto) 7.9 3.0-13.0 % Eosinophils (%) (Auto) 1.1 0.0-8.0 % Basophils (%) (Auto) 0.6 0.0-5.0 % Neutrophils # (Auto) 5.1 1.8-7.7 K/uL Lymphocytes # (Auto) 1.4 1.0-4.8 K/uL Monocytes # (Auto) 0.6 0.1-1.0 K/uL Eosinophils # (Auto) 0.08 0.00-0.70 K/uL Basophils # (Auto) 0.04 0.00-0.20 K/uL Absolute Immature Granulocyte (auto 0.09 0-1 K/uL Nucleated Red Blood Cells 0.0 0.0-0.19 % Sodium Level 137 136-145 mmol/L Chloride Level 105 101-111 mmol/L Carbon Dioxide Level 25 21-32 mmol/L Blood Urea Nitrogen 7 7-18 mg/dL Creatinine 0.9 0.5-1.3 mg/dL Glomerular Filtration Rate Calc 111 >90 mL/min Random Glucose 141 H 70-105 mg/dL Total Calcium 8.2 L 8.5-10.1 mg/dL Total Bilirubin 0.7 # 0.2-1.0 mg/dL Aspartate Amino Transf (AST/SGOT) 19 10-37 U/L Alanine Aminotransferase (ALT/SGPT) 11 #L 12-78 U/L Alkaline Phosphatase 86 50-136 U/L Total Protein 6.2 6.0-8.3 g/dL Albumin 2.2 L 3.5-5.0 g/dL Hemoglobin A1c 12.7 H 4.0-6.0 % Estimated Average Glucose (eAG) 318 H 70-126 mg/dL Cholesterol Level 206 #H <200 mg/dL LDL Cholesterol 27 0-99 mg/dL HDL Cholesterol 24 L 29-71 mg/dL Lipase 293 H 16-77 U/L Thyroid Stimulating Hormone (TSH) 0.93 0.36-3.74 uIU/mL Test 06/10/25 20:09 06/10/25 20:04 06/10/25 17:00 06/10/25 16:36 Range/Units Lactic Acid Level 1.1 0.8-2.5 mmol/L Influenza Type A Antigen Negative For Type A NEGATIVE Influenza Type B Antigen Negative For Type B NEGATIVE SARS-CoV-2, RNA, NAAT NEGATIVE SARS CoV-2 NEGATIVE Group A Streptococcus Rapid positive *A NEGATIVE Activated Partial Thromboplast Time 25.8 L 26.3-35.5 SEC Bedside Glucose Comment Notified Nurse Test 06/10/25 14:22 06/10/25 14:19 Range/Units Blood Gas Specimen Type Venous Arterial Blood Oxygen Saturation 85.7 L 94.0-98.0 % Venous Blood pH 7.373 7.320-7.430 Venous Blood pCO2 at Patient Temp 32 L 38-54 Venous Blood pO2 at Patient Temp 50.7 H 23.0-48.0 mmHg Venous Blood HCO3 18.0 L 22.0-29.0 Venous Blood Base Excess -6.0 L -2.0-3.0 Venous Blood Total Hemoglobin 14.1 13.5-17.5 Sodium (Blood Gas) 136 136-145 MMOL/L Bedside Potassium (Blood Gas) 3.6 3.4-4.5 MMOL/L Bedside Chloride (Blood Gas) 108 H 98-107 MMOL/L Bedside Glucose (Blood Gas) 230 H 65-95 MG/DL Bedside Ionized Calcium (Blood Gas) 1.14 L 1.15-1.33 MMOL/L Bedside Lactic Acid (Blood Gas) 1.33 H 0.36-0.75 MMOL/L Blood Gas Temperature 37.0 35.5-37.0 CELSIUS Blood Gas Vent Mode RA ROOM AIR FiO2 21.0 % Blood Gas Specimen Comment HAKAN Prothrombin Time 10.3 9.6-11.6 SEC Prothromb Time International Ratio 0.97 0.85-1.15 Whole Blood Ketones Quantitative 0.6 0.0-0.6 mmol/L Lactate Dehydrogenase 285 H 81-234 U/L C-Reactive Protein, Quantitative 84.90 H 0.5-3.0 mg/L Procalcitonin 0.10 0.05-0.5 ng/mL Current Medications Medications (Trade) Dose Ordered Sig/Josee Route PRN Reason Start Time Stop Time Status Last Admin Dose Admin Acetaminophen (TYLenol 325MG TAB) 650 mg Q6H PRN PO MILD PAIN (1-3) 06/10/25 15:00 07/10/25 14:59 06/11/25 20:41 650 MG Albuterol (DUOneb) 1 udvial Q6H PRN IH SHORTNESS OF BREATH 06/10/25 15:00 07/10/25 14:59 Atorvastatin Calcium (LIPItor 20MG) 20 mg HS PO 06/10/25 21:00 07/10/25 20:59 06/11/25 20:40 20 MG Dextrose (D50w) 50 ml AD PRN IV HYPOGLYCEMIA PROTOCOL 06/12/25 09:00 07/12/25 08:59 Dextrose/Sodium Chloride 1,000 ml @ 0 mls/hr AD IV 06/10/25 15:00 07/10/25 14:59 Enoxaparin Sodium (Lovenox) 40 mg DAILY SQ 06/11/25 09:00 07/11/25 08:59 06/12/25 08:14 40 MG Fenofibrate (Tricor) 145 mg DAILY PO 06/11/25 09:00 07/11/25 08:59 06/12/25 08:14 145 MG Fish Oil (Fish Oil 1000 Mg/Cap) 2,000 mg BID PO 06/10/25 21:00 07/10/25 20:59 06/12/25 08:14 2,000 MG Glucagon (Glucagon 1mg Kit) 1 mg AD PRN IM HYPOGLYCEMIA PROTOCOL 06/12/25 09:00 07/12/25 08:59 Hydromorphone HCl (DiLAUDid 1MG INJ) 0.5 mg Q6H PRN IVP SEVERE PAIN (7-10) 06/10/25 19:30 06/15/25 19:29 Insulin Human Regular (humuLIN R 100 UNIT/ML 3ML) 5 unit TIDAC SQ 06/12/25 11:30 07/12/25 11:29 06/12/25 11:28 5 UNIT Insulin Human Regular 100 unit/ Sodium Chloride 100 ml @ 0 mls/hr PROTOCOL PRN IV HYPERGYLCEMIA PROTOCOL 06/10/25 15:30 06/12/25 08:50 DC 06/11/25 20:54 6.8 MLS/HR Insulin Human Regular 100 unit/ Sodium Chloride 101 ml @ 0 mls/hr PROTOCOL IV 06/10/25 15:00 06/10/25 15:09 DC Ketorolac Tromethamine (toRADol) 30 mg Q6H PRN IVP MODERATE PAIN (4-6) 06/10/25 19:30 06/12/25 11:19 DC 06/10/25 20:55 30 MG Lactated Ringer's 1,000 ml @ 150 mls/hr Q6H40M IV 06/11/25 07:30 07/11/25 07:29 06/11/25 20:41 150 MLS/HR Levofloxacin/ Dextrose 100 ml @ 100 mls/hr DAILY20 IV 06/11/25 20:00 06/20/25 18:59 06/11/25 20:41 100 MLS/HR Levofloxacin/ Dextrose 100 ml @ 100 mls/hr Q24H IV 06/10/25 19:00 06/11/25 07:57 DC 06/10/25 20:33 100 MLS/HR Magnesium Sulfate 50 ml @ 0 mls/hr PROTOCOL IV 06/10/25 15:00 07/10/25 14:59 06/12/25 09:00 25 MLS/HR Morphine Sulfate (morPHINE 2MG SYG) 2 mg Q6H PRN IVP SEVERE PAIN (7-10) 06/10/25 15:00 06/10/25 20:08 DC Multivitamins Therapeutic (Multivitamin Tablet) 1 tab DAILY PO 06/11/25 09:00 07/11/25 08:59 06/12/25 08:14 1 TAB Ondansetron HCl (zoFRAN 4MG INJ) 4 mg Q6H PRN IVP NAUSEA/VOMITING 06/10/25 15:00 07/10/25 14:59 Pantoprazole Sodium (PROTonix 40MG INJ) 40 mg DAILY IVP 06/11/25 08:00 06/12/25 07:18 DC 06/11/25 09:12 40 MG Pantoprazole Sodium (PROTonix 40MG INJ) 40 mg Q24H IVP 06/10/25 15:00 06/11/25 07:57 DC 06/10/25 15:51 40 MG Pantoprazole Sodium (PROTonix 40MG TAB) 40 mg DAILY PO 06/12/25 09:00 07/12/25 08:59 06/12/25 08:14 40 MG Pharmacy Profile Note (Pharmacy Communication) 1 each ONCE MISC 06/10/25 15:30 06/10/25 15:14 DC Potassium Chloride 20 meq/ Sodium Chloride 1,010 ml @ 0 mls/hr PROTOCOL IV 06/10/25 15:00 07/10/25 14:59 Potassium Chloride/Dextrose/ Sod Cl 1,000 ml @ 0 mls/hr AD IV 06/10/25 15:00 07/10/25 14:59 06/12/25 03:15 150 MLS/HR Potassium Chloride 100 ml @ 100 mls/hr AD PRN IV POTASSIUM PROTOCOL 06/10/25 15:00 07/10/25 14:59 Potassium Chloride (K-Dur/Klor-Con 20meq) 20 meq AD PRN PO POTASSIUM PROTOCOL 06/10/25 15:00 07/10/25 14:59 06/11/25 22:08 20 MEQ Potassium Chloride (KCl 10% Elixir 20meq/15ml) 20 meq AD PRN PO POTASSIUM PROTOCOL 06/10/25 15:00 07/10/25 14:59 06/12/25 10:17 20 MEQ Sodium Chloride 1,000 ml @ 0 mls/hr Q0M IV 06/10/25 13:30 06/10/25 14:43 DC 06/10/25 13:24 999 MLS/HR Sodium Chloride 1,000 ml @ 200 mls/hr PROTOCOL IV 06/10/25 15:00 06/10/25 14:48 DC DIAGNOSTICS / RADIOLOGY: [ ] ASSESSMENT: Severe symptomatic hypertriglyceridemia, POA Acute pancreatitis, POA History of recurrent pancreatitis, POA Nonketotic uncontrolled hyperglycemia, POA Dehydration, POA Underlying history of ketosis prone diabetes mellitus, POA History of hyperlipidemia, POA History of pancreatic cyst measuring 0.9 cm, (on CT Abdomen/ Pelvis, 11/17), POA Strep group A Multifocal airspace disease within the bilateral lower lobes, per CT 06/10/2025 Severe hepatomegaly, per CT 06/10/25 Cholelithiasis, per CT 06/10/25 Electrolyte derangement (hyponatremia, hypochloremia hypocalcemia) Hyperglycemia in a type 2 noninsulin dependent diabetic Dehydration, POA PLAN: Severe symptomatic hypertriglyceridemia, POA, History of hyperlipidemia, POA Acute pancreatitis, POA, History of recurrent pancreatitis, POA, Non ketotic uncontrolled hyperglycemia, POA, Underlying history of ketosis prone diabetes mellitus, POA * Today's triglyceride level is 520 * Triglyceride level is close to 2000 with symptoms of acute pancreatitis at the time of admission * Patient was advanced diet to carb - consistent diet * Discontinue of the insulin drip. * He has been transitioned to subcutaneous insulin therapy, including 20 units of Lantus and 5 units of regular insulin with each meal, along with an insulin sliding scale. * Received aggressive IV fluid resuscitation, we will titrate IV fluids to avoid any episodes of hypoglycemia * Will maintain blood sugar checks q.1 hour while patient remains on insulin drip * Pain control with IV morphine * Consulted critical care service * Electrolytes will be repleted per protocol including potassium and magnesium while patient remains on insulin drip * Started patient on Lipitor 20 mg daily, fish oil 1 g twice daily, as well as fenofibrate 145 mg * All labs will be repeated in the morning, we will check triglycerides tomorrow * Hemoglobin A1c - 12.7 * CT Abdomen shows Features of acute interstitial edematous pancreatitis, Small hypodense lesion in the tail of pancreas possibly pseudocyst versus side branch IPMN. Recommend follow-up MRI. Suspected minimal free fluid in the left side of pelvis extending up to the left inguinal canal. Severe hepatomegaly. Cholelithiasis. History of pancreatic cyst measuring 0.9 cm, (on CT Abdomen/ Pelvis, 11/17), POA * No acute intervention needed. * Gastroenterology has been consulted for evaluation of recurrent pancreatitis and a pancreatic tail mass. * Will recommend outpatient GI follow-up with interval imaging monitoring Sepsis, Strep group A Positive Multifocal airspace disease within the bilateral lower lobes, per CT 06/10/2025 * CXR shows Bibasilar airspace disease, likely infectious or inflammatory. * CT chest - report pending * Patient is on Levofloxacin (Day 3 ) * Will continue to monitor his vitals and temperature * Will monitor closely for signs of infection * Blood cultures will be obtained - report pending Dehydration, POA Electrolyte derangement (hyponatremia, hypochloremia hypocalcemia) * Will follow up with tomorrows labs * Continue IV fluids for volume repletion; adjust rate based on vitals, urine output, and labs. * Replace electrolytes as needed per hospital protocol. * Correct underlying drivers (hyperglycemia-related pseudohyponatremia, pancreatitis-related hypocalcemia). Cholelithiasis, per CT 06/10/25 * No signs of acute cholecystitis currently. * Will Monitor for biliary obstruction or worsening pain. Severe Hepatomegaly (CT 06/10/25) * Will evaluate LFT trends. * Avoid hepatotoxic medications. GI prophylaxis with Pantoprazole 40 mg DVT prophylaxis with Lovenox 40 mg SQ ATTESTATION BY PHYSICIAN I have seen and examined the patient. I reviewed the documentation, medical decision making, and treatment plan as noted by the resident provider above. I agree with the findings and plan of care. Jose Rivas MD, LAKSHMI MD Jun 12, 2025 13:55
--- NOTE | 2025-06-12 14:14 | CONS ---
GASTROENTEROLOGY CONSULTATION NOTE Date of Consultation: Jun 12, 2025 Time of Consultation: 14:14 History of Present Illness: This is a 39-year-old male with a history of type 2 diabetes and pancreatitis, history of hypertriglyceridemia ended due to multiple abdominal nausea. He was found to have elevated 1949. CT abdomen and which revealed hypodense lesion in the tail of the pancreas concerning for pseudocyst versus sidebranch IPMN. Review of Systems: CONSTITUTIONAL: No malaise or change in sensation of wellbeing. ENMT: No rhinorrhea, otorrhea, sinus pain, ear ache. CARDIOVASCULAR: No angina, palpitations, orthopnea or paroxysmal dyspnea. RESPIRATORY: No SOB. GASTROINTESTINAL: No abdominal pain, nausea, vomiting, diarrhea, hematemesis, melena or change in the patient's habitual bowel movements consistency/number. GENITOURINARY: No dysuria, hematuria or change in bladder continence. MUSCULOSKELETAL: No new muscle pain or decrease in muscular strength. No new joint swelling, redness or tenderness. SKIN: No new rash. Past Medical History: [ ] Past Surgical History: [ ] Past Social History: [ ] Family History: [ ] Coded Allergies: Penicillins (Verified Allergy, Severe, anaphylaxis, 01/01/25) Physical Exam: GEN: Awake, alert, oriented in person, time and place, and in no acute distress. HEENT: No sinus tenderness. Tympanic membranes were not examined. No rhinorrhea. Oral pharyngeal mucosa is pink, moist and within normal limits. Neck is supple with no cervical lymphadenopathy, thyromegaly or JVD. CHEST: Inspection, palpation and percussion of the chest were unremarkable. Lung auscultation revealed normal breath sounds bilaterally. CARDIAC: PMI is within normal limits. Heart sounds are regular. Normal S1, S2. No gallop or murmur. ABD: Soft, non-tender and not distended. No peritoneal signs on palpation. No organomegaly. Normal bowel sounds. EXT: No cyanosis or clubbing. No edema. SKIN: Intact. No rashes. JOINTS: No evidence of synovitis or acute arthritis. NEURO: Alert and oriented to name, place and person. Cranial nerve examination is unremarkable. No focal motor deficits. Normal speech. Gait is normal. Strength is normal. Vital Sign (Last 24 Hours) 06/12/25 06/12/25 06/12/25 06/12/25 07:30 11:00 11:11 14:06 Temp 98.2 Pulse 84 Resp 18 B/P (MAP) 114/66 Pulse Ox 95 O2 Delivery N/A Room Air O2 Flow Rate 0 FiO2 21 Intake & Output (last 24hrs) 06/11/25 06/11/25 06/12/25 15:00 23:00 07:00 Intake Total 1256.0 ml 1506.0 ml 1249.0 ml Output Total 700 ml 1200 ml 900 ml Balance 556.0 ml 306.0 ml 349.0 ml Laboratory: [ ] Laboratory: Test 06/12/25 12:18 06/12/25 11:07 06/12/25 04:31 06/11/25 04:52 Range/Units Potassium Level 3.9 3.5-5.1 mmol/L Magnesium Level 2.30 1.80-2.40 mg/dL Triglycerides Level 563 H 30-200 mg/dL Whole Blood Glucose 135 #H 70-110 MG/DL White Blood Count 7.3 # 4.8-10.8 K/uL Red Blood Count 3.71 L 4.50-6.20 MIL/uL Hemoglobin 11.2 L 14.0-18.0 g/dL Hematocrit 31.4 L 42-54 % Mean Corpuscular Volume 84.6 79-99 fL Mean Corpuscular Hemoglobin 30.2 27.0-33.0 pg Mean Corpuscular Hemoglobin Concent 35.7 32.0-36.0 g/dL Red Cell Distribution Width 13.2 11.0-15.5 % Platelet Count 220 130-400 K/uL Mean Platelet Volume 10.6 H 7.5-10.5 fL Immature Granulocyte % (Auto) 1.2 H 0-1 % Neutrophils (%) (Auto) 70.6 40.0-77.0 % Lymphocytes (%) (Auto) 18.6 L 21.0-51.0 % Monocytes (%) (Auto) 7.9 3.0-13.0 % Eosinophils (%) (Auto) 1.1 0.0-8.0 % Basophils (%) (Auto) 0.6 0.0-5.0 % Neutrophils # (Auto) 5.1 1.8-7.7 K/uL Lymphocytes # (Auto) 1.4 1.0-4.8 K/uL Monocytes # (Auto) 0.6 0.1-1.0 K/uL Eosinophils # (Auto) 0.08 0.00-0.70 K/uL Basophils # (Auto) 0.04 0.00-0.20 K/uL Absolute Immature Granulocyte (auto 0.09 0-1 K/uL Nucleated Red Blood Cells 0.0 0.0-0.19 % Sodium Level 137 136-145 mmol/L Chloride Level 105 101-111 mmol/L Carbon Dioxide Level 25 21-32 mmol/L Blood Urea Nitrogen 7 7-18 mg/dL Creatinine 0.9 0.5-1.3 mg/dL Glomerular Filtration Rate Calc 111 >90 mL/min Random Glucose 141 H 70-105 mg/dL Total Calcium 8.2 L 8.5-10.1 mg/dL Total Bilirubin 0.7 # 0.2-1.0 mg/dL Aspartate Amino Transf (AST/SGOT) 19 10-37 U/L Alanine Aminotransferase (ALT/SGPT) 11 #L 12-78 U/L Alkaline Phosphatase 86 50-136 U/L Total Protein 6.2 6.0-8.3 g/dL Albumin 2.2 L 3.5-5.0 g/dL Hemoglobin A1c 12.7 H 4.0-6.0 % Estimated Average Glucose (eAG) 318 H 70-126 mg/dL Cholesterol Level 206 #H <200 mg/dL LDL Cholesterol 27 0-99 mg/dL HDL Cholesterol 24 L 29-71 mg/dL Lipase 293 H 16-77 U/L Thyroid Stimulating Hormone (TSH) 0.93 0.36-3.74 uIU/mL Test 06/10/25 20:09 06/10/25 20:04 06/10/25 17:00 06/10/25 16:36 Range/Units Lactic Acid Level 1.1 0.8-2.5 mmol/L Influenza Type A Antigen Negative For Type A NEGATIVE Influenza Type B Antigen Negative For Type B NEGATIVE SARS-CoV-2, RNA, NAAT NEGATIVE SARS CoV-2 NEGATIVE Group A Streptococcus Rapid positive *A NEGATIVE Activated Partial Thromboplast Time 25.8 L 26.3-35.5 SEC Bedside Glucose Comment Notified Nurse Test 06/10/25 14:22 06/10/25 14:19 Range/Units Blood Gas Specimen Type Venous Arterial Blood Oxygen Saturation 85.7 L 94.0-98.0 % Venous Blood pH 7.373 7.320-7.430 Venous Blood pCO2 at Patient Temp 32 L 38-54 Venous Blood pO2 at Patient Temp 50.7 H 23.0-48.0 mmHg Venous Blood HCO3 18.0 L 22.0-29.0 Venous Blood Base Excess -6.0 L -2.0-3.0 Venous Blood Total Hemoglobin 14.1 13.5-17.5 Sodium (Blood Gas) 136 136-145 MMOL/L Bedside Potassium (Blood Gas) 3.6 3.4-4.5 MMOL/L Bedside Chloride (Blood Gas) 108 H 98-107 MMOL/L Bedside Glucose (Blood Gas) 230 H 65-95 MG/DL Bedside Ionized Calcium (Blood Gas) 1.14 L 1.15-1.33 MMOL/L Bedside Lactic Acid (Blood Gas) 1.33 H 0.36-0.75 MMOL/L Blood Gas Temperature 37.0 35.5-37.0 CELSIUS Blood Gas Vent Mode RA ROOM AIR FiO2 21.0 % Blood Gas Specimen Comment HAKAN Prothrombin Time 10.3 9.6-11.6 SEC Prothromb Time International Ratio 0.97 0.85-1.15 Whole Blood Ketones Quantitative 0.6 0.0-0.6 mmol/L Lactate Dehydrogenase 285 H 81-234 U/L C-Reactive Protein, Quantitative 84.90 H 0.5-3.0 mg/L Procalcitonin 0.10 0.05-0.5 ng/mL Current Medications Medications (Trade) Dose Ordered Sig/Josee Route PRN Reason Start Time Stop Time Status Last Admin Dose Admin Acetaminophen (TYLenol 325MG TAB) 650 mg Q6H PRN PO MILD PAIN (1-3) 06/10/25 15:00 07/10/25 14:59 06/11/25 20:41 650 MG Albuterol (DUOneb) 1 udvial Q6H PRN IH SHORTNESS OF BREATH 06/10/25 15:00 07/10/25 14:59 Atorvastatin Calcium (LIPItor 20MG) 20 mg HS PO 06/10/25 21:00 07/10/25 20:59 06/11/25 20:40 20 MG Dextrose (D50w) 50 ml AD PRN IV HYPOGLYCEMIA PROTOCOL 06/12/25 09:00 07/12/25 08:59 Dextrose/Sodium Chloride 1,000 ml @ 0 mls/hr AD IV 06/10/25 15:00 07/10/25 14:59 Enoxaparin Sodium (Lovenox) 40 mg DAILY SQ 06/11/25 09:00 07/11/25 08:59 06/12/25 08:14 40 MG Fenofibrate (Tricor) 145 mg DAILY PO 06/11/25 09:00 07/11/25 08:59 06/12/25 08:14 145 MG Fish Oil (Fish Oil 1000 Mg/Cap) 2,000 mg BID PO 06/10/25 21:00 07/10/25 20:59 06/12/25 08:14 2,000 MG Glucagon (Glucagon 1mg Kit) 1 mg AD PRN IM HYPOGLYCEMIA PROTOCOL 06/12/25 09:00 07/12/25 08:59 Hydromorphone HCl (DiLAUDid 1MG INJ) 0.5 mg Q6H PRN IVP SEVERE PAIN (7-10) 06/10/25 19:30 06/15/25 19:29 Insulin Human Regular (humuLIN R 100 UNIT/ML 3ML) 5 unit TIDAC SQ 06/12/25 11:30 07/12/25 11:29 06/12/25 11:28 5 UNIT Insulin Human Regular 100 unit/ Sodium Chloride 100 ml @ 0 mls/hr PROTOCOL PRN IV HYPERGYLCEMIA PROTOCOL 06/10/25 15:30 06/12/25 08:50 DC 06/11/25 20:54 6.8 MLS/HR Insulin Human Regular 100 unit/ Sodium Chloride 101 ml @ 0 mls/hr PROTOCOL IV 06/10/25 15:00 06/10/25 15:09 DC Ketorolac Tromethamine (toRADol) 30 mg Q6H PRN IVP MODERATE PAIN (4-6) 06/10/25 19:30 06/12/25 11:19 DC 06/10/25 20:55 30 MG Lactated Ringer's 1,000 ml @ 150 mls/hr Q6H40M IV 06/11/25 07:30 07/11/25 07:29 06/11/25 20:41 150 MLS/HR Levofloxacin/ Dextrose 100 ml @ 100 mls/hr DAILY20 IV 06/11/25 20:00 06/20/25 18:59 06/11/25 20:41 100 MLS/HR Levofloxacin/ Dextrose 100 ml @ 100 mls/hr Q24H IV 06/10/25 19:00 06/11/25 07:57 DC 06/10/25 20:33 100 MLS/HR Magnesium Sulfate 50 ml @ 0 mls/hr PROTOCOL IV 06/10/25 15:00 07/10/25 14:59 06/12/25 09:00 25 MLS/HR Morphine Sulfate (morPHINE 2MG SYG) 2 mg Q6H PRN IVP SEVERE PAIN (7-10) 06/10/25 15:00 06/10/25 20:08 DC Multivitamins Therapeutic (Multivitamin Tablet) 1 tab DAILY PO 06/11/25 09:00 07/11/25 08:59 06/12/25 08:14 1 TAB Ondansetron HCl (zoFRAN 4MG INJ) 4 mg Q6H PRN IVP NAUSEA/VOMITING 06/10/25 15:00 07/10/25 14:59 Pantoprazole Sodium (PROTonix 40MG INJ) 40 mg DAILY IVP 06/11/25 08:00 06/12/25 07:18 DC 06/11/25 09:12 40 MG Pantoprazole Sodium (PROTonix 40MG INJ) 40 mg Q24H IVP 06/10/25 15:00 06/11/25 07:57 DC 06/10/25 15:51 40 MG Pantoprazole Sodium (PROTonix 40MG TAB) 40 mg DAILY PO 06/12/25 09:00 07/12/25 08:59 06/12/25 08:14 40 MG Pharmacy Profile Note (Pharmacy Communication) 1 each ONCE MISC 06/10/25 15:30 06/10/25 15:14 DC Potassium Chloride 20 meq/ Sodium Chloride 1,010 ml @ 0 mls/hr PROTOCOL IV 06/10/25 15:00 07/10/25 14:59 Potassium Chloride/Dextrose/ Sod Cl 1,000 ml @ 0 mls/hr AD IV 06/10/25 15:00 07/10/25 14:59 06/12/25 03:15 150 MLS/HR Potassium Chloride 100 ml @ 100 mls/hr AD PRN IV POTASSIUM PROTOCOL 06/10/25 15:00 07/10/25 14:59 Potassium Chloride (K-Dur/Klor-Con 20meq) 20 meq AD PRN PO POTASSIUM PROTOCOL 06/10/25 15:00 07/10/25 14:59 06/11/25 22:08 20 MEQ Potassium Chloride (KCl 10% Elixir 20meq/15ml) 20 meq AD PRN PO POTASSIUM PROTOCOL 06/10/25 15:00 07/10/25 14:59 06/12/25 10:17 20 MEQ Sodium Chloride 1,000 ml @ 0 mls/hr Q0M IV 06/10/25 13:30 06/10/25 14:43 DC 06/10/25 13:24 999 MLS/HR Sodium Chloride 1,000 ml @ 200 mls/hr PROTOCOL IV 06/10/25 15:00 06/10/25 14:48 DC Diagnostics / Radiology: [COPY/PASTE HERE IF NO REPORTS PLEASE DELETE SECTION] Assessment: Abnormal imaging revealing pancreatic lesion Acute pancreatitis related to hypertriglyeridemia Plan: Case discussed with Dr. Polanco Plan for outpatient EUS once pancreatitis resolves in 6-8 weeks to eval pancreatic lesion Continue to treat pancreatitis KRISTA FULLER HOME HEALTH ASSISTANT Jun 12, 2025 14:14
--- NOTE | 2025-06-12 20:50 | PN ---
Endocrinology progress note DOS:06/12/25 subjective: CMP showed sodium of 127, potassium 3.6, chloride of 100, bicarb of 17, creatinine 0.8, blood glucose of 359, lipase of 308, triglycerides of 1949. triglyceride >1900 but now less than 600, amylase was >800 but now less than 200. lipase was greater than 500 but now less than 300. currently on dextrose drip, insulin drip at 7 units/hr. Home diabetic regimen: off atorvastatin, fenofibrate, fish oil. off lantus 50 units daily and off humalog insulin 25 units tid. Hba1c 12.75 PAST MEDICAL HISTORY: Prior history of multiple episodes of pancreatitis, history of hypertriglyceridemia, underlying history of ketosis prone diabetes mellitus, history of testicular cancer in 2003 PAST SURGICAL HISTORY: History of left testicular orchiectomy PAST SOCIAL HISTORY: Denies active smoking or alcohol consumption FAMILY HISTORY: History of liver cancer in family Allergies: Patient has allergic reaction including anaphylaxis to penicillin Home medications: Reports being on fish oil and Lipitor as outpatient Coded Allergies: Penicillins (Verified Allergy, Severe, anaphylaxis, 01/01/25) DIAGNOSTICS / RADIOLOGY: CT of the abdomen pelvis with IV contrast show pancreatitis. ASSESSMENT: Acute pancreatitis, POA triglyceride >1900 but now less than 600, amylase was >800 but now less than 200. lipase was greater than 300 but now less than 300. currently off dextrose drip, insulin drip at 7 units/hr. History of recurrent pancreatitis, POA Nonketotic uncontrolled hyperglycemia, POA Home diabetic regimen: off atorvastatin, fenofibrae, fish oil. off lantus 50 units daily and off humalog insulin 25 units tid. Hba1c 12.75 Severe symptomatic hypertriglyceridemia, POA likely familial with contribution from uncontrolled dm-2 and non-compliant to medications. Hypovolemic hyponatremia, POA improved Dehydration, POA Underlying history of ketosis prone diabetes mellitus, POA History of hyperlipidemia, POA History of pancreatic cyst measuring 0.9 cm, (on CT Abdomen/ Pelvis, 11/17), POA History of cholelithiasis, POA PLAN: start lantus 20 units daily. start regular insulin 5 units qac before meals. continue medium dose ssi. Monitor glucose q x 6 hourly. Continue carb consistent diet. Keep glucose less than 180 mg/dl. continue atorvastatin 20 mg daily, fenofibrate 145 mg daily, fish oil 1 mg tid. Patient will need cholesterol meds and insulin at discharge. Vitals/Labs Vital Signs Date Time Temp Pulse Resp B/P (MAP) Pulse Ox O2 Delivery O2 Flow Rate FiO2 06/12/25 16:28 98.1 06/12/25 16:25 89 21 116/72 95 Room Air 21 06/12/25 07:30 0 Laboratory Tests 06/12/25 04:31 06/12/25 12:18 Medications Current Medications Sodium Chloride 1,000 ml @ 0 mls/hr Q0M IV Last administered on 06/10/25at 13:24; Start 06/10/25 at 13:30; Stop 06/10/25 at 14:43; Status DC Ondansetron HCl 4 mg ONCE ONCE IVP Last administered on 06/10/25at 13:47; Start 06/10/25 at 14:00; Stop 06/10/25 at 14:01; Status DC Morphine Sulfate 4 mg ONCE ONCE IVP Last administered on 06/10/25at 13:47; Start 06/10/25 at 14:00; Stop 06/10/25 at 14:01; Status DC Sodium Chloride 1,000 ml @ 0 mls/hr ONCE ONCE IV Last administered on 06/10/25at 14:59; Start 06/10/25 at 15:00; Stop 06/10/25 at 15:01; Status DC Sodium Chloride 1,000 ml @ 200 mls/hr PROTOCOL IV; Start 06/10/25 at 15:00; Stop 06/10/25 at 14:48; Status DC Potassium Chloride/Dextrose/ Sod Cl 1,000 ml @ 0 mls/hr AD IV Last administered on 06/12/25at 03:15; Start 06/10/25 at 15:00; Stop 07/10/25 at 14:59 Potassium Chloride 20 meq/ Sodium Chloride 1,010 ml @ 0 mls/hr PROTOCOL IV; Start 06/10/25 at 15:00; Stop 07/10/25 at 14:59 Magnesium Sulfate 50 ml @ 0 mls/hr PROTOCOL IV Last administered on 06/12/25at 09:00; Start 06/10/25 at 15:00; Stop 07/10/25 at 14:59 Insulin Human Regular 100 unit/ Sodium Chloride 101 ml @ 0 mls/hr PROTOCOL IV; Start 06/10/25 at 15:00; Stop 06/10/25 at 15:09; Status DC Dextrose/Sodium Chloride 1,000 ml @ 0 mls/hr AD IV; Start 06/10/25 at 15:00; Stop 07/10/25 at 14:59 Fish Oil 2,000 mg BID PO Last administered on 06/12/25at 08:14; Start 06/10/25 at 21:00; Stop 07/10/25 at 20:59 Potassium Chloride 100 ml @ 100 mls/hr AD PRN IV; Start 06/10/25 at 15:00; Stop 07/10/25 at 14:59 Potassium Chloride 20 meq AD PRN PO Last administered on 06/12/25at 10:17; Start 06/10/25 at 15:00; Stop 07/10/25 at 14:59 Potassium Chloride 20 meq AD PRN PO Last administered on 06/11/25at 22:08; Start 06/10/25 at 15:00; Stop 07/10/25 at 14:59 Acetaminophen 650 mg Q6H PRN PO Last administered on 06/11/25at 20:41; Start 06/10/25 at 15:00; Stop 07/10/25 at 14:59 Ondansetron HCl 4 mg Q6H PRN IVP; Start 06/10/25 at 15:00; Stop 07/10/25 at 14:59 Albuterol 1 udvial Q6H PRN IH; Start 06/10/25 at 15:00; Stop 07/10/25 at 14:59 Enoxaparin Sodium 40 mg DAILY SQ Last administered on 06/12/25at 08:14; Start 06/11/25 at 09:00; Stop 07/11/25 at 08:59 Multivitamins Therapeutic 1 tab DAILY PO Last administered on 06/12/25at 08:14; Start 06/11/25 at 09:00; Stop 07/11/25 at 08:59 Pantoprazole Sodium 40 mg Q24H IVP Last administered on 06/10/25at 15:51; Start 06/10/25 at 15:00; Stop 06/11/25 at 07:57; Status DC Morphine Sulfate 2 mg Q6H PRN IVP; Start 06/10/25 at 15:00; Stop 06/10/25 at 20:08; Status DC Pharmacy Profile Note 1 each ONCE MISC; Start 06/10/25 at 15:30; Stop 06/10/25 at 15:14; Status DC Insulin Human Regular 100 unit/ Sodium Chloride 100 ml @ 0 mls/hr PROTOCOL PRN IV Last administered on 06/11/25at 20:54; Start 06/10/25 at 15:30; Stop 06/12/25 at 08:50; Status DC Fenofibrate 145 mg DAILY PO Last administered on 06/12/25at 08:14; Start 06/11/25 at 09:00; Stop 07/11/25 at 08:59 Atorvastatin Calcium 20 mg HS PO Last administered on 06/11/25at 20:40; Start 06/10/25 at 21:00; Stop 07/10/25 at 20:59 Iohexol 75 ml STK-MED ONCE IV; Start 06/10/25 at 16:02; Stop 06/10/25 at 16:02; Status DC Levofloxacin/ Dextrose 100 ml @ 100 mls/hr Q24H IV Last administered on 06/10/25at 20:33; Start 06/10/25 at 19:00; Stop 06/11/25 at 07:57; Status DC Hydromorphone HCl 0.5 mg Q6H PRN IVP; Start 06/10/25 at 19:30; Stop 06/15/25 at 19:29 Ketorolac Tromethamine 30 mg Q6H PRN IVP Last administered on 06/10/25at 20:55; Start 06/10/25 at 19:30; Stop 06/12/25 at 11:19; Status DC Lactated Ringer's 1,000 ml @ 150 mls/hr Q6H40M IV Last administered on 06/11/25at 20:41; Start 06/11/25 at 07:30; Stop 07/11/25 at 07:29 Levofloxacin/ Dextrose 100 ml @ 100 mls/hr DAILY20 IV Last administered on 06/11/25at 20:41; Start 06/11/25 at 20:00; Stop 06/20/25 at 18:59 Pantoprazole Sodium 40 mg DAILY IVP Last administered on 06/11/25at 09:12; Start 06/11/25 at 08:00; Stop 06/12/25 at 07:18; Status DC Pantoprazole Sodium 40 mg DAILY PO Last administered on 06/12/25at 08:14; Start 06/12/25 at 09:00; Stop 07/12/25 at 08:59 Insulin Glargine 20 units ONCE ONCE SQ Last administered on 06/12/25at 09:10; Start 06/12/25 at 09:00; Stop 06/12/25 at 09:01; Status DC Insulin Human Regular 5 unit TIDAC SQ Last administered on 06/12/25at 16:50; Start 06/12/25 at 11:30; Stop 07/12/25 at 11:29 Dextrose 50 ml AD PRN IV; Start 06/12/25 at 09:00; Stop 07/12/25 at 08:59 Glucagon 1 mg AD PRN IM; Start 06/12/25 at 09:00; Stop 07/12/25 at 08:59 MAY ALAN MD Jun 12, 2025 20:50
--- NOTE | 2025-06-12 22:40 | NUR ---
RECEIVED REPORT FROM THOM GALAN, PATIENT TRANSFERRED FROM ROOM 216, ARRIVED VIA WHEELCHAIR, SELF TRANSFERRED TO BED. STEADY GAIT. AAOX4, DENIES PAIN OR DISCOMFORT. EDUCATED ON SAFETY PRECAUTIONS AND CALL CONNOR. Addendum: 06/13/25 at 0025 by ALEXIS BROOKS RN RN REPORT AND TRANSFER TIME 4840. NOT 1623
[2025-06-13] VITALS (9 sets, daily range): BP systolic 113–122; BP diastolic 66–77; PULSE 57–87; RESP 16–20; TEMP 98.1–98.4; O2SAT 97–99
[2025-06-13 03:58] LABS: IMMATURE GRANULOCYTE ABSOLUTE 0.05 K/uL (0-1); NUCLEATED RED BLOOD CELLS 0.0 % (0.0-0.19); PLATELET COUNT (AUTO) 245 K/uL (130-400); RED BLOOD CELL COUNT(AUTO) 3.98 MIL/uL (4.50-6.20); RED CELL DISTRIBUTION WIDTH 13.4 % (11.0-15.5); WHITE BLOOD COUNT (AUTO) 6.3 K/uL (4.8-10.8)
[2025-06-13 04:17] LABS: ASPARTATE AMINOTRANSFERASE 11.0 U/L (10-37); CREATININE 0.9 mg/dL (0.5-1.3); GLOMERULAR FILTR. RATE CALC 111.0 mL/min (>90); GLUCOSE,RANDOM 221.0 mg/dL (70-105); SODIUM SERUM 135.0 mmol/L (136-145); TOTAL PROTEIN, SERUM 7.3 g/dL (6.0-8.3); UREA NITROGEN, BLOOD 12.0 mg/dL (7-18)
--- NOTE | 2025-06-13 10:50 | HMCIMG ---
EXAM: CT Chest Without IV contrast. CLINICAL HISTORY: Bibasilar atelectasis and fever TECHNIQUE: Axial computed tomography images of the chest without intravenous contrast. COMPARISON: None provided. FINDINGS: LUNGS: There are bibasilar consolidations which are likely infectious in etiology. The upper lung martinez are clear. PLEURAL SPACES: No evidence of pneumothorax. Trace left pleural effusion. No right pleural effusion. HEART: No cardiomegaly. No significant pericardial effusion. LYMPH NODES: No lymphadenopathy is evident. UPPER ABDOMEN: The upper abdominal solid organs reveal about 11???12 millimeter-sized radiopaque calculi in the lumen of the gallbladder. Mildly bulky tail of the pancreas with surrounding fat stranding concerning for pancreatitis. BONES: No acute osseous abnormality. IMPRESSION: Bibasilar consolidations which are likely infectious in etiology. Trace left pleural effusion. Gallstones. Pancreatitis. Please see the CT of the abdomen and pelvis dated 06/10/2025 for additional details. /Lemuel
--- NOTE | 2025-06-13 11:50 | PN ---
[facility] PROGRESS NOTE Date Patient Seen: Jun 13, 2025 Time of Visit: 11:47 Supervising Physician: Dr Dontae Shea Primary Care Physician: Attending group: [facility] Team Outpatient Specialists: Inpatient Consults: BIS, critical care team [employer] PROBLEM LIST: Pancreatitis secondary to hypertriglyceridemia Strep group a Multifocal airspace disease within the bilateral lower lobes, per CT 06/10/2025 Severe hepatomegaly, per CT 06/10/25 Cholelithiasis, per CT 06/10/25 Electrolyte derangement (hyponatremia, hypochloremia hypocalcemia) Hyperglycemia in a type 2 noninsulin dependent diabetic Dehydration, POA History of pancreatic cyst measuring 0.9 cm, (on CT Abdomen/ Pelvis, 11/17), POA INTERVAL HISTORY: Patient seen and examined, all labs and imaging have been reviewed, patient is awake alert and oriented, Patient tolerating his diet Triglycerides improved vital signs are stable Afebrile Plan: Patient no longer on insulin drip, downgraded Being seen by Endocrinology, vital signs are stable, critical care will sign off, thank you for allowing us to participate in the care of your patient. REVIEW OF SYSTEMS: 12 point ROS reviewed with patient. Pertinent positives mentioned above. Otherwise negative. PHYSICAL EXAM: GENERAL: Alert, weak, awake oriented x 4 HEENT: EOMI, Sclera non icteric, moist mucosa NECK: Supple, no JVD, trachea midline LUNGS: Clear breath sounds bilaterally. No wheezes HEART: Regular rate and rhythm. Normal S1 and S2, without murmurs ABD: Abdomen soft, nontender. Bowel sounds present EXT: No clubbing cyanosis or edema NEURO: Alert and oriented X4, follows commands Vital Signs (last 8hr) Date Time Temp Pulse Resp B/P (MAP) Pulse Ox O2 Delivery O2 Flow Rate FiO2 06/13/25 11:41 82 20 N/A Room Air 21 06/13/25 08:03 98.4 61 16 115/67 96 Room Air 06/13/25 08:00 99 Room Air* 0 21 06/13/25 07:23 86 20 N/A Room Air 21 06/13/25 04:00 98.2 80 18 122/68 99 Room Air LABS: Hematology Labs: Test 06/13/25 03:40 Range/Units White Blood Count 6.3 4.8-10.8 K/uL Red Blood Count 3.98 L 4.50-6.20 MIL/uL Hemoglobin 11.9 L 14.0-18.0 g/dL Hematocrit 34.4 L 42-54 % Mean Corpuscular Volume 86.4 79-99 fL Mean Corpuscular Hemoglobin 29.9 27.0-33.0 pg Mean Corpuscular Hemoglobin Concent 34.6 32.0-36.0 g/dL Red Cell Distribution Width 13.4 11.0-15.5 % Platelet Count 245 130-400 K/uL Mean Platelet Volume 9.9 7.5-10.5 fL Immature Granulocyte % (Auto) 0.8 0-1 % Neutrophils (%) (Auto) 59.4 40.0-77.0 % Lymphocytes (%) (Auto) 31.1 21.0-51.0 % Monocytes (%) (Auto) 5.7 3.0-13.0 % Eosinophils (%) (Auto) 2.4 0.0-8.0 % Basophils (%) (Auto) 0.6 0.0-5.0 % Neutrophils # (Auto) 3.7 1.8-7.7 K/uL Lymphocytes # (Auto) 2.0 1.0-4.8 K/uL Monocytes # (Auto) 0.4 0.1-1.0 K/uL Eosinophils # (Auto) 0.15 0.00-0.70 K/uL Basophils # (Auto) 0.04 0.00-0.20 K/uL Absolute Immature Granulocyte (auto 0.05 0-1 K/uL Nucleated Red Blood Cells 0.0 0.0-0.19 % Chemistry Labs: Test 06/13/25 11:24 06/13/25 03:40 06/12/25 12:18 Range/Units Whole Blood Glucose 188 H 70-110 MG/DL Sodium Level 135 L 136-145 mmol/L Potassium Level 3.7 3.5-5.1 mmol/L Chloride Level 103 101-111 mmol/L Carbon Dioxide Level 24 21-32 mmol/L Blood Urea Nitrogen 12 7-18 mg/dL Creatinine 0.9 0.5-1.3 mg/dL Glomerular Filtration Rate Calc 111 >90 mL/min Random Glucose 221 #H 70-105 mg/dL Total Calcium 8.5 8.5-10.1 mg/dL Total Bilirubin 0.3 # 0.2-1.0 mg/dL Aspartate Amino Transf (AST/SGOT) 11 10-37 U/L Alanine Aminotransferase (ALT/SGPT) 13 12-78 U/L Alkaline Phosphatase 103 50-136 U/L C-Reactive Protein, Quantitative 156.00 H 0.5-3.0 mg/L Total Protein 7.3 6.0-8.3 g/dL Albumin 2.5 L 3.5-5.0 g/dL Triglycerides Level 481 H 30-200 mg/dL Lipase 40 16-77 U/L Magnesium Level 2.30 1.80-2.40 mg/dL DIAGNOSTICS / RADIOLOGY RESULTS: [ ] PLAN NEURO: Minimize central acting medications as possible. Maintain fall precautions, adequate lighting during the day PULMONARY: Supplemental 02 as needed. Maintain aspiration precautions at all times CARDIOVASCULAR: Follow hemodynamics. Vital signs per facility protocol GI & NUTRITION: Continue with nutritional support. Continue stool softeners and laxatives as needed. KIDNEYS & ELECTROLYTES: Strict monitoring of intake, output and overall fluid balance. Avoid nephrotoxic medications to the extent possible. Medications to be dosed according to renal function. Monitor electrolytes and replace as needed ENDOCRINE: Maintain blood glucose between 100-180 at all times. Hypoglycemia protocol in place INFECTIOUS DISEASE: Trend temperature, WBC and procalcitonin level Follow cultures, deescalate antibiotics as soon as possible. Panculture if new onset fever ONCOLOGY/HEMATOLOGY/COAGULATION: Monitor for s/s of bleeding Monitor hemoglobin, coagulation studies as needed SKIN: Pressure ulcer prevention per facility protocol Specialty mattress ORTHO/REHAB: Continue PT/OT Prophylaxis: Continue GI and DVT prophylaxis Code Status: Full Resuscitation Disposition: SIMI CLEMENS PAC Jun 13, 2025 11:50
--- NOTE | 2025-06-13 14:43 | DS ---
Discharge Summary Hospital Course Summary: The patient is a 39-year-old male with a history of type 2 diabetes mellitus, recurrent pancreatitis, and severe hypertriglyceridemia who presented to the ED with sudden-onset akeimguu-py-nwirjw epigastric and left upper quadrant abdominal pain beginning around 8:00 a.m. The pain was 8/10 in intensity and associated with nausea, similar to his prior episode of DKA and hypertriglyceridemia-induced pancreatitis in December 2024. He reported running out of his cholesterol medications and not taking diabetic medications for several weeks. Initial vitals were notable for mild tachycardia, and laboratory evaluation showed sodium 127, bicarbonate 17, glucose 359, lipase 308, and significantly elevated triglycerides at 1949. CT imaging and clinical findings supported recurrent acute pancreatitis, and the patient was admitted to the ICU for insulin drip initiation and aggressive IV hydration. While hospitalized, the patient received continuous insulin infusion with serial monitoring of triglyceride levels, electrolytes, and blood glucose. Triglycerides progressively improved, decreasing to 520 and later to 481. CT abdomen confirmed acute interstitial edematous pancreatitis with a small hypodense lesion in the pancreatic tail likely a pseudocyst versus side-branch IPMN, prompting gastroenterology consultation. Gastroenterology recommended outpatient EUS after pancreatitis resolution in 6- 8 weeks. Chest imaging showed bibasilar airspace disease, and with a positive Group A Streptococcus test, a CT chest was obtained to evaluate for possible infection. The patient remained h emodynamically stable, denied abdominal pain, nausea, or vomiting, and tolerated progression from clear liquids to a carb-consistent diet. Endocrinology was consulted for poorly controlled diabetes (HbA1c 12.7%), and he was transitioned to a subcutaneous insulin regimen consisting of Lantus 20 units daily and regular insulin 6 units with meals plus sliding scale coverage. Today, the patient reports no abdominal pain, nausea, vomiting, or other complaints. Triglyceride levels have continued to improve, and he has remained stable on subcutaneous insulin therapy with good tolerance of diet and no new issues. He is clinically stable for discharge with instructions to continue insulin as prescribed, follow a diabetic and low-fat diet, resume outpatient management of hypertriglyceridemia, and follow up with endocrinology and gastroenterology for diabetes optimization and evaluation of the pancreatic tail lesion. He is advised to avoid missing medications to prevent recurrence of hypertriglyceridemia and pancreatitis. The patient is discharged in stable condition. Sales Support Consultant(s): CONSULTATION REPORT Name: BIN LANDRY Acct: [id number] MR: [id number] : 1985 Admit Date: 06/10/25 LENNY ARCE [place] [id number] [place] [id number] [facility] CONSULTATION NOTE Date Patient Seen: Jun 10, 2025 Time of Visit: 17:57 Supervising Physician: Dr. Ronny Hammonds Reason for Consultation: Severe hypertriglyceridemia, on insulin gtt Primary Care Physician: Attending group: [employer] Hospitalist Team Outpatient Specialists: Inpatient Consults: BIS, critical care team Clipper Counters PROBLEM LIST: Severe symptomatic hypertriglyceridemia, POA Acute interstitial edematous pancreatitis, POA, per CT 06/10/25, with hx of recurrent pancreatitis, POA Multifocal airspace disease within the bilateral lower lobes, per CT 06/10/2025 Small hypodense lesion in the tail of pancreas possibly pseudocyst versus side branch IPMN, per CT on 06/10/25 Severe hepatomegaly, per CT 06/10/25 Cholelithiasis, per CT 06/10/25 Electrolyte derangement (hyponatremia, hypochloremia hypocalcemia) Uncontrolled diabetes mellitus, POA Elevated total bilirubin, alk-phos, and lipase. Elevated lactate dehydrogenase and C-reactive protein Hypoalbuminemia Proteinuria, glucosuria, ketonuria Leukocytosis Anemia Hypovolemic hyponatremia, POA Dehydration, POA Underlying history of ketosis prone diabetes mellitus, POA Hyperlipidemia, POA History of pancreatic cyst measuring 0.9 cm, (on CT Abdomen/ Pelvis, 11/17), POA HPI: Mr. Landry is a 39-year-old male with history of type 2 diabetes mellitus, history of recurrent pancreatitis, hypertriglyceridemia who presented to [facility] ER for evaluation of vitxjxli-le-fqyuic epigastric and and left upper quadrant pain onset about 8:00 a.m. today. Pain was 8/10 in intensity with associated nausea. Patient stated steady pain is similar to his previous hospitalization in [facility] in 12/2024 when he was admitted with DKA, severe hypertriglyceridemia and acute pancreatitis. Patient reported he ran out of his cholesterol medication including fish oil and Lipitor on Wednesday (3 days ago). He stated that his PCP has been monitoring his triglycerides levels and they have been good. He also reported that his primary care provider recently stopped his diabetic medication has not taken his diabetic medications for several weeks. Patient denied any chest pain, shortness of breath, focal weakness or upper or lower extremities. V/S on arrival: T-max of 99.9 F, heart rate of 106, blood pressure 133/81. Remarkable Labs:on presentation showed WBC 48760, hemoglobin of 16.6, platelet count of 532228. Na 127, potassium 3.6, chloride of 100, bicarb of 17, creatinine 0.8, blood glucose of 359, lipase of 308, triglycerides of 1949. CT abdomen and pelvis with contrast: Multifocal airspace disease within the bilateral lower lobes may reflect an infectious and/inflammatory process. Features of acute interstitial edematous pancreatitis. Small hypodense lesion in the tail of pancreas possibly pseudocyst versus side branch IPMN. Recommend follow-up MRI. Suspected minimal free fluid in the left side of pelvis extending up to the left inguinal canal. Severe hepatomegaly. Cholelithiasis. Chest x-ray: 1. Bibasilar airspace disease, likely infectious or inflammatory. Patient was admitted to ICU for further management of severe hypertriglyceridemia causing recurrent acute pancreatitis with aggressive IV hydration and will be initiated on insulin drip. BIS team was consulted for critical care management. I assessed the patient in 216. No family member at bedside. The patient's breathing was even, unlabored, appeared comfortable, in no distress. The patient was on fluids and insulin drip. I informed the patient of labs, diagnostics, and plan of care. He verbalized understanding and is in agreement with the plan. Plan and assessment are listed below. PAST MEDICAL HX: see above PAST SURGICAL HX: Left testicular orchiectomy SOCIAL HISTORY: No tobacco, ETOH, or illicit drug use Coded Allergies: Penicillins (Verified Allergy, Severe, anaphylaxis, 01/01/25) REVIEW OF SYSTEMS: 12 point ROS reviewed with patient. Pertinent positives mentioned above. Otherwise negative. PHYSICAL EXAM: GENERAL: Alert, weak, awake oriented x 4 HEENT: EOMI, Sclera non icteric, moist mucosa NECK: Supple, no JVD, trachea midline LUNGS: Clear breath sounds bilaterally. No wheezes HEART: Regular rate and rhythm. Normal S1 and S2, without murmurs ABD: Abdomen soft, nontender. Bowel sounds present EXT: No clubbing cyanosis or edema NEURO: Alert and oriented X4, follows commands Vital Signs (last 8hr) Date Time Temp Pulse Resp B/P (MAP) Pulse Ox O2 Delivery O2 Flow Rate FiO2 06/10/25 16:41 98.2 109 18 100/62 97 Room Air* 0 06/10/25 15:30 98.2 102 18 103/69 96 Room Air* 0 06/10/25 14:55 112 20 N/A Room Air 21 06/10/25 14:30 98.2 107 19 118/81 96 Room Air* 0 06/10/25 13:30 98.2 105 19 130/82 98 Room Air* 0 06/10/25 13:17 98.2 113 21 132/80 96 Room Air* 0 06/10/25 12:52 99.9 106 16 133/81 97 Room Air 0 LABS: Hematology Labs: Test 06/10/25 12:55 Range/Units White Blood Count 13.9 H 4.8-10.8 K/uL Red Blood Count 4.74 4.50-6.20 MIL/uL Hemoglobin 16.6 14.0-18.0 g/dL Hematocrit 41.4 L 42-54 % Mean Corpuscular Volume 87.3 79-99 fL Mean Corpuscular Hemoglobin 35.0 H 27.0-33.0 pg Mean Corpuscular Hemoglobin Concent 40.1 H 32.0-36.0 g/dL Red Cell Distribution Width 12.6 11.0-15.5 % Platelet Count 361 130-400 K/uL Mean Platelet Volume 9.9 7.5-10.5 fL Immature Granulocyte % (Auto) 0.9 0-1 % Neutrophils (%) (Auto) 80.3 H 40.0-77.0 % Lymphocytes (%) (Auto) 11.0 L 21.0-51.0 % Monocytes (%) (Auto) 6.7 3.0-13.0 % Eosinophils (%) (Auto) 0.6 0.0-8.0 % Basophils (%) (Auto) 0.5 0.0-5.0 % Neutrophils # (Auto) 11.1 H 1.8-7.7 K/uL Lymphocytes # (Auto) 1.5 1.0-4.8 K/uL Monocytes # (Auto) 0.9 0.1-1.0 K/uL Eosinophils # (Auto) 0.09 0.00-0.70 K/uL Basophils # (Auto) 0.07 0.00-0.20 K/uL Absolute Immature Granulocyte (auto 0.13 0-1 K/uL Segmented Neutrophils % 81 H 40-70 % Band Neutrophils % 1 0-2 % Lymphocytes % (Manual) 13 L 22-44 % Monocytes % (Manual) 5 2-9 % Nucleated Red Blood Cells 0.0 0.0-0.19 % Differential Comment MANUAL DIFFERENTIAL White Cell Morphology Comment Platelet Morphology Comment ADEQUATE Red Blood Cell Morphology ANISO 1+ Chemistry Labs: Test 06/10/25 16:37 06/10/25 16:36 06/10/25 14:19 06/10/25 12:55 Range/Units Sodium Level 130 L 136-145 mmol/L Potassium Level 4.0 3.5-5.1 mmol/L Chloride Level 103 101-111 mmol/L Blood Urea Nitrogen 10 7-18 mg/dL Random Glucose 271 H 70-105 mg/dL Whole Blood Glucose 192 H 70-110 MG/DL Bedside Glucose Comment Notified Nurse Whole Blood Ketones Quantitative 0.6 0.0-0.6 mmol/L Lactate Dehydrogenase 285 H 81-234 U/L C-Reactive Protein, Quantitative 84.90 H 0.5-3.0 mg/L Procalcitonin 0.10 0.05-0.5 ng/mL Total Bilirubin 8.4 H 0.2-1.0 mg/dL Direct Bilirubin 0.1 0.0-0.3 mg/dL Aspartate Amino Transf (AST/SGOT) 23 10-37 U/L Alanine Aminotransferase (ALT/SGPT) 16 12-78 U/L Alkaline Phosphatase 166 H 50-136 U/L Total Protein 7.7 6.0-8.3 g/dL Albumin 3.2 L 3.5-5.0 g/dL Triglycerides Level 1949 H 30-200 mg/dL Lipase 308 H 16-77 U/L Coagulation Labs: Test 06/10/25 14:19 Range/Units Prothrombin Time 10.3 9.6-11.6 SEC Prothromb Time International Ratio 0.97 0.85-1.15 Activated Partial Thromboplast Time 26.3-35.5 SEC DIAGNOSTICS / RADIOLOGY RESULTS: [ ] PLAN Admit to ICU with continuous cardiac monitoring and pulse oximetry monitoring. Keep NPO except for meds. Continue insulin drip. Blood glucose checks Q1 hour and as needed while on insulin drip. Aggressive IV fluid resuscitation. Prn medications for: Pain management, nausea, vomiting, constipation, hypertension, fever, shortness of breath. Pending Endocrinology consult. Continue Lipitor, Ca cellulitis, history fenofibrate. Obtain blood cultures, lactic acid, flu, COVID, and strep. Start Levaquin 500 mg IV daily. Vital signs per ICU. Monitor renal and liver function. Monitor electrolytes and treat accordingly PRN AM labs + A1c, repeat triglyceride level. GI and DVT prophylaxis Further plan/orders per hospitalization course. NEURO: Minimize central acting medications as possible. Fall Precautions. Well lighted room through the day and minimize interruptions through the night to prevent acute delirium. PULMONARY: Supplemental 02 as needed Titrate Fio2 to keep Spo2 > or = 90% DuoNebs and CPT as needed IS hourly while awake for pulmonary hygiene Out of bed to chair as tolerated VAP Bundle CARDIOVASCULAR: Follow hemodynamics. Titrate vasopressor to keep MAP >65 or systolic blood pressure >95mmHg GI & NUTRITION: Continue nutritional support Aspirations precautions Prokinetic agents and laxatives as needed KIDNEYS & ELECTROLYTES: Strict monitoring of intake and output Daily weights Avoid nephrotoxic agents Monitor electrolytes and replace as needed Goal urine output of 30mL/hr or 0.5mL/kg/hr ENDOCRINE: Maintain blood glucose between 100-180 at all times. Insulin sliding scale for blood glucose management INFECTIOUS DISEASE: Trend temperature. Cevallos-culture if febrile. HEMATOLOGY & COAGULATION: Monitor H&H. Keep Hgb > 7 Transfuse 1 unit of PRBC for Hgb < 7 Transfuse 1 pack of platelets of platelets < 20, 000 Watch for any signs and symptoms of bleeding SKIN: Pressure ulcer prevention per facility protocol Rehab: PT/OT Code Status: Full Resuscitation Disposition: [Admit to ICU] Other: Total patient care time exceeds 45 minutes excluding all procedures. ATTESTATION BY PHYSICIAN The patient has been seen and evaluated, the case has been discussed with the ELECTRIC GOLF CART REPAIRER, I agree with the clinical findings and plan of care. Ronny Hammonds MD, LUCIA M FNP Jun 10, 2025 17:59 Electronically Signed by: LENNY ARCE [id number] Electronically Co-Signed by: CONSULTATION REPORT Name: BIN LANDRY Acct: [id number] MR: [id number] : 1985 Admit Date: 06/10/25 MAY ALAN MD [facility] [address] [place] [address] CONSULT NOTE: Endocrinology Consult Chief complaint:abdominal pain. Reason for consult: hypertriglyceridemia, uncontrolled dm-2 DOS:06/11/25 HISTORY OF PRESENT ILLNESS: This is a 39-year-old male with underlying history of type 2 diabetes mellitus, history of recurrent pancreatitis, with history of hypertriglyceridemia, who presented to the ER for further evaluation of bwngcqzd-pf-fnzine epigastric and and left upper quadrant pain. Patient states that pain is similar to his previous hospitalization in [facility] in 12/2024 when he was admitted with DKA, severe hypertriglyceridemia and acute pancreatitis. Patient states that he recently ran out of his cholesterol medication including fish oil and Lipitor. He also reports that his primary care provider recently stopped his diabetic medication and he has not taken his diabetic medications for several weeks. On presentation to the hospital, patient was noted to have T-max of 99.9 F, heart rate of 106, blood pressure 133/81. [place] [address], hemoglobin of 16.6, platelet count of 923730. CMP showed sodium of 127, potassium 3.6, chloride of 100, bicarb of 17, creatinine 0.8, blood glucose of 359, lipase of 308, triglycerides of 1949. triglyceride >1900 but now less than 100, amylase was >800 but now less than 200. lipase was greater than 500 but now less than 300. currently on dextrose drip, insulin drip at 7 units/hr. Home diabetic regimen: off atorvastatin, fenofibrate, fish oil. off lantus 50 units daily and off humalog insulin 25 units tid. Hba1c 12.75 REVIEW OF SYSTEMS CONSTITUTIONAL: Denies fevers, chills, or night sweats. No unintentional weight loss reported. NEUROLOGICAL: Denies headache, amaurosis fugax, motor weakness, sensory deficit, vertigo/spinning sensation, gait abnormalities, or tremors. ENT: No hearing loss, otalgia, otorrhea, rhinitis, rhinorrhea, hoarseness, or so re throat. CARDIOVASCULAR: Denies any exertional angina, dyspnea on exertion, orthopnea, paroxysmal nocturnal dyspnea, palpitations, life-threatening arrhythmias, claudication. PULMONARY: Denies any shortness of breath, cough, phlegm/sputum, hemoptysis, pleuritic chest pain. SLEEP: Denies morning headaches, daytime somnolence or napping. Denies difficulty falling asleep, staying asleep, waking from sleep. Denies knowledge of snoring. GASTROINTESTINAL: Nausea and qvptwmpw-vc-ncoeav abdominal pain that started today GENITOURINARY: Denies frequency, urgency, nocturia, hematuria or incontinence (Storage/Irritative symptoms.) Low urinary stream, straining to void, urinary intermittency or hesitancy, splitting of the voiding stream, terminal dribbling. ENDOCRINOLOGIC: Denies polyuria, polydipsia, polyphagia or heat/cold intolerances. HEMATOLOGIC: Denies thrombophilia/previous clots, or coagulopathy/bleeding disorders. ONCOLOGIC: Denies personal history of malignancy. DERMATOLOGIC: Denies rashes or pruritus. PSYCHIATRIC: Denies any suicidal or homicidal ideation. Denies hallucinations. PAST MEDICAL HISTORY: Prior history of multiple episodes of pancreatitis, history of hypertriglyceridemia, underlying history of ketosis prone diabetes mellitus, history of testicular cancer in 2003 PAST SURGICAL HISTORY: History of left testicular orchiectomy PAST SOCIAL HISTORY: Denies active smoking or alcohol consumption FAMILY HISTORY: History of liver cancer in family Allergies: Patient has allergic reaction including anaphylaxis to penicillin Home medications: Reports being on fish oil and Lipitor as outpatient Coded Allergies: Penicillins (Verified Allergy, Severe, anaphylaxis, 01/01/25) PHYSICAL EXAM GENERAL APPEARANCE: The patient is awake, alert, and oriented, in no acute cardiopulmonary distress. NEUROLOGICAL: Cranial nerves II-XII grossly intact. Motor is 5/5 in bilateral upper and lower extremities proximal to distal. No sensory deficits. HEENT: Face is symmetric. Pupils are equal and reactive. Extraocular movements are intact. NECK: Supple. No JVD. No thyromegaly. No submental, submandibular, pre-/postauricular, occipital or supraclavicular lymphadenopathy. CHEST: Normal chest expansion. No Telemetry. LUNGS: Absence of any rales, rhonchi or any wheezing. CARDIOVASCULAR: Regular. S1 and S2 normal. No appreciable rubs, murmurs or gallops. ABDOMEN: Soft, mild tenderness to palpation of the epigastric and left upper quadrant region, there is no rebound or guarding : Deferred. No [place]. EXTREMITIES: Non-edematous and not cyanotic. No clubbing. Good capillary refill. SKIN: No skin breakdown. DIAGNOSTICS / RADIOLOGY: CT of the abdomen pelvis with IV contrast show pancreatitis. ASSESSMENT: Acute pancreatitis, POA triglyceride >1900 but now less than 100, amylase was >800 but now less than 200. lipase was greater than 300 but now less than 300. currently on dextrose drip, insulin drip at 7 units/hr. History of recurrent pancreatitis, POA Nonketotic uncontrolled hyperglycemia, POA Home diabetic regimen: off atorvastatin, fenofibrae, fish oil. off lantus 50 units daily and off humalog insulin 25 units tid. Hba1c 12.75 Severe symptomatic hypertriglyceridemia, POA likely familial with contribution from uncontrolled dm-2 and non-compliant to medications. Hypovolemic hyponatremia, POA improved Dehydration, POA Underlying history of ketosis prone diabetes mellitus, POA History of hyperlipidemia, POA History of pancreatic cyst measuring 0.9 cm, (on CT Abdomen/ Pelvis, 11/17), POA History of cholelithiasis, POA PLAN: continue insulin drip, dextrose drip and switch to insulin injections tomorrow. Monitor glucose q x 1 hourly. Continue carb consistent diet. Keep glucose less than 180 mg/dl. continue atorvastatin 20 mg daily, fenofibrate 145 mg daily, fish oil 1 mg tid. Patient will need cholesterol meds and insulin at discharge. Thanks for allowing me to participate in patient care and will continue to follow up. Vital Signs 06/11/25 06/11/25 06/11/25 12:00 16:00 16:34 Temp 99.3 Pulse 97 Resp 23 B/P (MAP) 110/74 Pulse Ox 95 O2 Delivery Room Air O2 Flow Rate 0 FiO2 21 Hematology Labs: Test 06/11/25 04:52 06/10/25 12:55 Range/Units White Blood Count 12.5 H 4.8-10.8 K/uL Red Blood Count 4.37 L 4.50-6.20 MIL/uL Hemoglobin 13.4 L 14.0-18.0 g/dL Hematocrit 36.6 L 42-54 % Mean Corpuscular Volume 83.8 79-99 fL Mean Corpuscular Hemoglobin 30.7 27.0-33.0 pg Mean Corpuscular Hemoglobin Concent 36.6 H 32.0-36.0 g/dL Red Cell Distribution Width 12.7 11.0-15.5 % Platelet Count 291 130-400 K/uL Mean Platelet Volume 9.7 7.5-10.5 fL Immature Granulocyte % (Auto) 0.7 0-1 % Neutrophils (%) (Auto) 80.9 H 40.0-77.0 % Lymphocytes (%) (Auto) 12.3 L 21.0-51.0 % Monocytes (%) (Auto) 4.8 3.0-13.0 % Eosinophils (%) (Auto) 0.7 0.0-8.0 % Basophils (%) (Auto) 0.6 0.0-5.0 % Neutrophils # (Auto) 10.1 H 1.8-7.7 K/uL Lymphocytes # (Auto) 1.5 1.0-4.8 K/uL Monocytes # (Auto) 0.6 0.1-1.0 K/uL Eosinophils # (Auto) 0.09 0.00-0.70 K/uL Basophils # (Auto) 0.07 0.00-0.20 K/uL Absolute Immature Granulocyte (auto 0.09 0-1 K/uL Nucleated Red Blood Cells 0.0 0.0-0.19 % Segmented Neutrophils % 81 H 40-70 % Band Neutrophils % 1 0-2 % Lymphocytes % (Manual) 13 L 22-44 % Monocytes % (Manual) 5 2-9 % Differential Comment MANUAL DIFFERENTIAL White Cell Morphology Comment Platelet Morphology Comment ADEQUATE Red Blood Cell Morphology ANISO 1+ Chemistry Labs: Test 06/11/25 16:30 06/11/25 04:52 06/10/25 20:09 06/10/25 16:36 Range/Units Whole Blood Glucose 117 H 70-110 MG/DL Sodium Level 131 L 136-145 mmol/L Potassium Level 4.1 3.5-5.1 mmol/L Chloride Level 103 101-111 mmol/L Carbon Dioxide Level 19 L 21-32 mmol/L Blood Urea Nitrogen 6 L 7-18 mg/dL Creatinine 0.7 0.5-1.3 mg/dL Glomerular Filtration Rate Calc 119 >90 mL/min Random Glucose 226 H 70-105 mg/dL Hemoglobin A1c 12.7 H 4.0-6.0 % Estimated Average Glucose (eAG) 318 H 70-126 mg/dL Total Calcium 7.8 L 8.5-10.1 mg/dL Magnesium Level 1.40 L 1.80-2.40 mg/dL Total Bilirubin 1.4 #H 0.2-1.0 mg/dL Aspartate Amino Transf (AST/SGOT) 40 H 10-37 U/L Alanine Aminotransferase (ALT/SGPT) 16 12-78 U/L Alkaline Phosphatase 112 # 50-136 U/L Total Protein 6.6 6.0-8.3 g/dL Albumin 2.4 #L 3.5-5.0 g/dL Triglycerides Level 1020 H 30-200 mg/dL Cholesterol Level 206 #H <200 mg/dL LDL Cholesterol 27 0-99 mg/dL HDL Cholesterol 24 L 29-71 mg/dL Lipase 293 H 16-77 U/L Thyroid Stimulating Hormone (TSH) 0.93 0.36-3.74 uIU/mL Lactic Acid Level 1.1 0.8-2.5 mmol/L Bedside Glucose Comment Notified Nurse Test 06/10/25 14:19 06/10/25 12:55 Range/Units Whole Blood Ketones Quantitative 0.6 0.0-0.6 mmol/L Lactate Dehydrogenase 285 H 81-234 U/L C-Reactive Protein, Quantitative 84.90 H 0.5-3.0 mg/L Procalcitonin 0.10 0.05-0.5 ng/mL Direct Bilirubin 0.1 0.0-0.3 mg/dL Coagulation Labs: Test 06/10/25 17:00 06/10/25 14:19 Range/Units Activated Partial Thromboplast Time 25.8 L 26.3-35.5 SEC Prothrombin Time 10.3 9.6-11.6 SEC Prothromb Time International Ratio 0.97 0.85-1.15 Current Medications Medications (Trade) Dose Ordered Sig/Josee Route Start Time Stop Time Status Last Admin Dose Admin Atorvastatin Calcium (LIPItor 20MG) 20 mg HS PO 06/10/25 21:00 07/10/25 20:59 06/10/25 20:34 20 MG Dextrose/Sodium Chloride 1,000 ml @ 0 mls/hr AD IV 06/10/25 15:00 07/10/25 14:59 Enoxaparin Sodium (Lovenox) 40 mg DAILY SQ 06/11/25 09:00 07/11/25 08:59 06/11/25 09:08 40 MG Fenofibrate (Tricor) 145 mg DAILY PO 06/11/25 09:00 07/11/25 08:59 06/11/25 09:08 145 MG Fish Oil (Fish Oil 1000 Mg/Cap) 2,000 mg BID PO 06/10/25 21:00 07/10/25 20:59 06/11/25 09:09 2,000 MG Insulin Human Regular 100 unit/ Sodium Chloride 101 ml @ 0 mls/hr PROTOCOL IV 06/10/25 15:00 06/10/25 15:09 DC Lactated Ringer's 1,000 ml @ 150 mls/hr Q6H40M IV 06/11/25 07:30 07/11/25 07:29 06/11/25 16:29 150 MLS/HR Levofloxacin/ Dextrose 100 ml @ 100 mls/hr DAILY20 IV 06/11/25 20:00 06/20/25 18:59 Levofloxacin/ Dextrose 100 ml @ 100 mls/hr Q24H IV 06/10/25 19:00 06/11/25 07:57 DC 06/10/25 20:33 100 MLS/HR Magnesium Sulfate 50 ml @ 0 mls/hr PROTOCOL IV 06/10/25 15:00 07/10/25 14:59 06/11/25 06:02 25 MLS/HR Multivitamins Therapeutic (Multivitamin Tablet) 1 tab DAILY PO 06/11/25 09:00 07/11/25 08:59 06/11/25 09:08 1 TAB Pantoprazole Sodium (PROTonix 40MG INJ) 40 mg DAILY IVP 06/11/25 08:00 07/10/25 14:59 06/11/25 09:12 40 MG Pantoprazole Sodium (PROTonix 40MG INJ) 40 mg Q24H IVP 06/10/25 15:00 06/11/25 07:57 DC 06/10/25 15:51 40 MG Pharmacy Profile Note (Pharmacy Communication) 1 each ONCE MISC 06/10/25 15:30 06/10/25 15:14 DC Potassium Chloride 20 meq/ Sodium Chloride 1,010 ml @ 0 mls/hr PROTOCOL IV 06/10/25 15:00 07/10/25 14:59 Potassium Chloride/Dextrose/ Sod Cl 1,000 ml @ 0 mls/hr AD IV 06/10/25 15:00 07/10/25 14:59 06/11/25 07:38 150 MLS/HR Sodium Chloride 1,000 ml @ 0 mls/hr Q0M IV 06/10/25 13:30 06/10/25 14:43 DC 06/10/25 13:24 999 MLS/HR Sodium Chloride 1,000 ml @ 200 mls/hr PROTOCOL IV 06/10/25 15:00 06/10/25 14:48 DC MAY ALAN MD Jun 11, 2025 17:13 Electronically Signed by: MAY ALAN MD06/11/25 2137 Electronically Co-Signed by: CONSULTATION REPORT Name: BIN LANDRY Acct: [id number] MR: [id number] : 1985 Admit Date: 06/10/25 KRISTA FULLER [place] [address] [place] [address] GASTROENTEROLOGY CONSULTATION NOTE Date of Consultation: Jun 12, 2025 Time of Consultation: 14:14 History of Present Illness: This is a 39-year-old male with a history of type 2 diabetes and pancreatitis, history of hypertriglyceridemia ended due to multiple abdominal nausea. He was found to have elevated 1949. CT abdomen and which revealed hypodense lesion in the tail of the pancreas concerning for pseudocyst versus sidebranch IPMN. Review of Systems: CONSTITUTIONAL: No malaise or change in sensation of wellbeing. ENMT: No rhinorrhea, otorrhea, sinus pain, ear ache. CARDIOVASCULAR: No angina, palpitations, orthopnea or paroxysmal dyspnea. RESPIRATORY: No SOB. GASTROINTESTINAL: No abdominal pain, nausea, vomiting, diarrhea, hematemesis, melena or change in the patient's habitual bowel movements consistency/number. GENITOURINARY: No dysuria, hematuria or change in bladder continence. MUSCULOSKELETAL: No new muscle pain or decrease in muscular strength. No new joint swelling, redness or tenderness. SKIN: No new rash. Past Medical History: [ ] Past Surgical History: [ ] Past Social History: [ ] Family History: [ ] Coded Allergies: Penicillins (Verified Allergy, Severe, anaphylaxis, 01/01/25) Physical Exam: GEN: Awake, alert, oriented in person, time and place, and in no acute distress. HEENT: No sinus tenderness. Tympanic membranes were not examined. No rhinorrhea. Oral pharyngeal mucosa is pink, moist and within normal limits. Neck is supple with no cervical lymphadenopathy, thyromegaly or JVD. CHEST: Inspection, palpation and percussion of the chest were unremarkable. Lung auscultation revealed normal breath sounds bilaterally. CARDIAC: PMI is within normal limits. Heart sounds are regular. Normal S1, S2. No gallop or murmur. ABD: Soft, non-tender and not distended. No peritoneal signs on palpation. No organomegaly. Normal bowel sounds. EXT: No cyanosis or clubbing. No edema. SKIN: Intact. No rashes. JOINTS: No evidence of synovitis or acute arthritis. NEURO: Alert and oriented to name, place and person. Cranial nerve examination is unremarkable. No focal motor deficits. Normal speech. Gait is normal. Strength is normal. Vital Sign (Last 24 Hours) 06/12/25 06/12/25 06/12/25 06/12/25 07:30 11:00 11:11 14:06 Temp 98.2 Pulse 84 Resp 18 B/P (MAP) 114/66 Pulse Ox 95 O2 Delivery N/A Room Air O2 Flow Rate 0 FiO2 21 Intake & Output (last 24hrs) 06/11/25 06/11/25 06/12/25 15:00 23:00 07:00 Intake Total 1256.0 ml 1506.0 ml 1249.0 ml Output Total 700 ml 1200 ml 900 ml Balance 556.0 ml 306.0 ml 349.0 ml Laboratory: [ ] Laboratory: Test 06/12/25 12:18 06/12/25 11:07 06/12/25 04:31 06/11/25 04:52 Range/Units Potassium Level 3.9 3.5-5.1 mmol/L Magnesium Level 2.30 1.80-2.40 mg/dL Triglycerides Level 563 H 30-200 mg/dL Whole Blood Glucose 135 #H 70-110 MG/DL White Blood Count 7.3 # 4.8-10.8 K/uL Red Blood Count 3.71 L 4.50-6.20 MIL/uL Hemoglobin 11.2 L 14.0-18.0 g/dL Hematocrit 31.4 L 42-54 % Mean Corpuscular Volume 84.6 79-99 fL Mean Corpuscular Hemoglobin 30.2 27.0-33.0 pg Mean Corpuscular Hemoglobin Concent 35.7 32.0-36.0 g/dL Red Cell Distribution Width 13.2 11.0-15.5 % Platelet Count 220 130-400 K/uL Mean Platelet Volume 10.6 H 7.5-10.5 fL Immature Granulocyte % (Auto) 1.2 H 0-1 % Neutrophils (%) (Auto) 70.6 40.0-77.0 % Lymphocytes (%) (Auto) 18.6 L 21.0-51.0 % Monocytes (%) (Auto) 7.9 3.0-13.0 % Eosinophils (%) (Auto) 1.1 0.0-8.0 % Basophils (%) (Auto) 0.6 0.0-5.0 % Neutrophils # (Auto) 5.1 1.8-7.7 K/uL Lymphocytes # (Auto) 1.4 1.0-4.8 K/uL Monocytes # (Auto) 0.6 0.1-1.0 K/uL Eosinophils # (Auto) 0.08 0.00-0.70 K/uL Basophils # (Auto) 0.04 0.00-0.20 K/uL Absolute Immature Granulocyte (auto 0.09 0-1 K/uL Nucleated Red Blood Cells 0.0 0.0-0.19 % Sodium Level 137 136-145 mmol/L Chloride Level 105 101-111 mmol/L Carbon Dioxide Level 25 21-32 mmol/L Blood Urea Nitrogen 7 7-18 mg/dL Creatinine 0.9 0.5-1.3 mg/dL Glomerular Filtration Rate Calc 111 >90 mL/min Random Glucose 141 H 70-105 mg/dL Total Calcium 8.2 L 8.5-10.1 mg/dL Total Bilirubin 0.7 # 0.2-1.0 mg/dL Aspartate Amino Transf (AST/SGOT) 19 10-37 U/L Alanine Aminotransferase (ALT/SGPT) 11 #L 12-78 U/L Alkaline Phosphatase 86 50-136 U/L Total Protein 6.2 6.0-8.3 g/dL Albumin 2.2 L 3.5-5.0 g/dL Hemoglobin A1c 12.7 H 4.0-6.0 % Estimated Average Glucose (eAG) 318 H 70-126 mg/dL Cholesterol Level 206 #H <200 mg/dL LDL Cholesterol 27 0-99 mg/dL HDL Cholesterol 24 L 29-71 mg/dL Lipase 293 H 16-77 U/L Thyroid Stimulating Hormone (TSH) 0.93 0.36-3.74 uIU/mL Test 06/10/25 20:09 06/10/25 20:04 06/10/25 17:00 06/10/25 16:36 Range/Units Lactic Acid Level 1.1 0.8-2.5 mmol/L Influenza Type A Antigen Negative For Type A NEGATIVE Influenza Type B Antigen Negative For Type B NEGATIVE SARS-CoV-2, RNA, NAAT NEGATIVE SARS CoV-2 NEGATIVE Group A Streptococcus Rapid positive *A NEGATIVE Activated Partial Thromboplast Time 25.8 L 26.3-35.5 SEC Bedside Glucose Comment Notified Nurse Test 06/10/25 14:22 06/10/25 14:19 Range/Units Blood Gas Specimen Type Venous Arterial Blood Oxygen Saturation 85.7 L 94.0-98.0 % Venous Blood pH 7.373 7.320-7.430 Venous Blood pCO2 at Patient Temp 32 L 38-54 Venous Blood pO2 at Patient Temp 50.7 H 23.0-48.0 mmHg Venous Blood HCO3 18.0 L 22.0-29.0 Venous Blood Base Excess -6.0 L -2.0-3.0 Venous Blood Total Hemoglobin 14.1 13.5-17.5 Sodium (Blood Gas) 136 136-145 MMOL/L Bedside Potassium (Blood Gas) 3.6 3.4-4.5 MMOL/L Bedside Chloride (Blood Gas) 108 H 98-107 MMOL/L Bedside Glucose (Blood Gas) 230 H 65-95 MG/DL Bedside Ionized Calcium (Blood Gas) 1.14 L 1.15-1.33 MMOL/L Bedside Lactic Acid (Blood Gas) 1.33 H 0.36-0.75 MMOL/L Blood Gas Temperature 37.0 35.5-37.0 CELSIUS Blood Gas Vent Mode RA ROOM AIR FiO2 21.0 % Blood Gas Specimen Comment HAKAN Prothrombin Time 10.3 9.6-11.6 SEC Prothromb Time International Ratio 0.97 0.85-1.15 Whole Blood Ketones Quantitative 0.6 0.0-0.6 mmol/L Lactate Dehydrogenase 285 H 81-234 U/L C-Reactive Protein, Quantitative 84.90 H 0.5-3.0 mg/L Procalcitonin 0.10 0.05-0.5 ng/mL Current Medications Medications (Trade) Dose Ordered Sig/Josee Route PRN Reason Start Time Stop Time Status Last Admin Dose Admin Acetaminophen (TYLenol 325MG TAB) 650 mg Q6H PRN PO MILD PAIN (1-3) 06/10/25 15:00 07/10/25 14:59 06/11/25 20:41 650 MG Albuterol (DUOneb) 1 udvial Q6H PRN IH SHORTNESS OF BREATH 06/10/25 15:00 07/10/25 14:59 Atorvastatin Calcium (LIPItor 20MG) 20 mg HS PO 06/10/25 21:00 07/10/25 20:59 06/11/25 20:40 20 MG Dextrose (D50w) 50 ml AD PRN IV HYPOGLYCEMIA PROTOCOL 06/12/25 09:00 07/12/25 08:59 Dextrose/Sodium Chloride 1,000 ml @ 0 mls/hr AD IV 06/10/25 15:00 07/10/25 14:59 Enoxaparin Sodium (Lovenox) 40 mg DAILY SQ 06/11/25 09:00 07/11/25 08:59 06/12/25 08:14 40 MG Fenofibrate (Tricor) 145 mg DAILY PO 06/11/25 09:00 07/11/25 08:59 06/12/25 08:14 145 MG Fish Oil (Fish Oil 1000 Mg/Cap) 2,000 mg BID PO 06/10/25 21:00 07/10/25 20:59 06/12/25 08:14 2,000 MG Glucagon (Glucagon 1mg Kit) 1 mg AD PRN IM HYPOGLYCEMIA PROTOCOL 06/12/25 09:00 07/12/25 08:59 Hydromorphone HCl (DiLAUDid 1MG INJ) 0.5 mg Q6H PRN IVP SEVERE PAIN (7-10) 06/10/25 19:30 06/15/25 19:29 Insulin Human Regular (humuLIN R 100 UNIT/ML 3ML) 5 unit TIDAC SQ 06/12/25 11:30 07/12/25 11:29 06/12/25 11:28 5 UNIT Insulin Human Regular 100 unit/ Sodium Chloride 100 ml @ 0 mls/hr PROTOCOL PRN IV HYPERGYLCEMIA PROTOCOL 06/10/25 15:30 06/12/25 08:50 DC 06/11/25 20:54 6.8 MLS/HR Insulin Human Regular 100 unit/ Sodium Chloride 101 ml @ 0 mls/hr PROTOCOL IV 06/10/25 15:00 06/10/25 15:09 DC Ketorolac Tromethamine (toRADol) 30 mg Q6H PRN IVP MODERATE PAIN (4-6) 06/10/25 19:30 06/12/25 11:19 DC 06/10/25 20:55 30 MG Lactated Ringer's 1,000 ml @ 150 mls/hr Q6H40M IV 06/11/25 07:30 07/11/25 07:29 06/11/25 20:41 150 MLS/HR Levofloxacin/ Dextrose 100 ml @ 100 mls/hr DAILY20 IV 06/11/25 20:00 06/20/25 18:59 06/11/25 20:41 100 MLS/HR Levofloxacin/ Dextrose 100 ml @ 100 mls/hr Q24H IV 06/10/25 19:00 06/11/25 07:57 DC 06/10/25 20:33 100 MLS/HR Magnesium Sulfate 50 ml @ 0 mls/hr PROTOCOL IV 06/10/25 15:00 07/10/25 14:59 06/12/25 09:00 25 MLS/HR Morphine Sulfate (morPHINE 2MG SYG) 2 mg Q6H PRN IVP SEVERE PAIN (7-10) 06/10/25 15:00 06/10/25 20:08 DC Multivitamins Therapeutic (Multivitamin Tablet) 1 tab DAILY PO 06/11/25 09:00 07/11/25 08:59 06/12/25 08:14 1 TAB Ondansetron HCl (zoFRAN 4MG INJ) 4 mg Q6H PRN IVP NAUSEA/VOMITING 06/10/25 15:00 07/10/25 14:59 Pantoprazole Sodium (PROTonix 40MG INJ) 40 mg DAILY IVP 06/11/25 08:00 06/12/25 07:18 DC 06/11/25 09:12 40 MG Pantoprazole Sodium (PROTonix 40MG INJ) 40 mg Q24H IVP 06/10/25 15:00 06/11/25 07:57 DC 06/10/25 15:51 40 MG Pantoprazole Sodium (PROTonix 40MG TAB) 40 mg DAILY PO 06/12/25 09:00 07/12/25 08:59 06/12/25 08:14 40 MG Pharmacy Profile Note (Pharmacy Communication) 1 each ONCE MISC 06/10/25 15:30 06/10/25 15:14 DC Potassium Chloride 20 meq/ Sodium Chloride 1,010 ml @ 0 mls/hr PROTOCOL IV 06/10/25 15:00 07/10/25 14:59 Potassium Chloride/Dextrose/ Sod Cl 1,000 ml @ 0 mls/hr AD IV 06/10/25 15:00 07/10/25 14:59 06/12/25 03:15 150 MLS/HR Potassium Chloride 100 ml @ 100 mls/hr AD PRN IV POTASSIUM PROTOCOL 06/10/25 15:00 07/10/25 14:59 Potassium Chloride (K-Dur/Klor-Con 20meq) 20 meq AD PRN PO POTASSIUM PROTOCOL 06/10/25 15:00 07/10/25 14:59 06/11/25 22:08 20 MEQ Potassium Chloride (KCl 10% Elixir 20meq/15ml) 20 meq AD PRN PO POTASSIUM PROTOCOL 06/10/25 15:00 07/10/25 14:59 06/12/25 10:17 20 MEQ Sodium Chloride 1,000 ml @ 0 mls/hr Q0M IV 06/10/25 13:30 06/10/25 14:43 DC 06/10/25 13:24 999 MLS/HR Sodium Chloride 1,000 ml @ 200 mls/hr PROTOCOL IV 06/10/25 15:00 06/10/25 14:48 DC Diagnostics / Radiology: [COPY/PASTE HERE IF NO REPORTS PLEASE DELETE SECTION] Assessment: Abnormal imaging revealing pancreatic lesion Acute pancreatitis related to hypertriglyeridemia Plan: Case discussed with Dr. Polanco Plan for outpatient EUS once pancreatitis resolves in 6-8 weeks to eval pancreatic lesion Continue to treat pancreatitis KRISTA FULLER SUPPORT DBA Jun 12, 2025 14:14 Electronically Signed by: Electronically Co-Signed by: Procedure(s): [facility] [address] [place], [place] [id number] IMAGING REPORT Addendum PATIENT: BIN LANDRY MR#: [id number] : 1985 SEX: M AGE: 39 LOCATION: 2CH ORDER 1550 STATUS: ADM IN REPORT#: [id number] SERVICE 1549 REASON: concern for acute pancreatitis,hx of severe hypertryglcyeridemia ORDERING PHYSICIAN: DOMINIC SMITH MD PROCEDURE: ABD PEL W - CT ABDOMEN/PELVIS W/CONTRAST ADDENDUM REPORT ADDENDUM: Results were shared by telephone at 06:17 PM EST on 06-10-[address] Dominic Smith /[place] EXAM: CT Abdomen and Pelvis with IV contrast CLINICAL HISTORY: Concern for acute pancreatitis. History of severe hypertriglyceridemia. TECHNIQUE: Thin collimated axial CT images of the abdomen and pelvis were obtained with sagittal and coronal reformatted images also submitted. CT scan done according to ALARA (As Low As Reasonably Achievable). CONTRAST: Yes. COMPARISON: None. FINDINGS: Multifocal airspace disease within the bilateral lower lobes may reflect an infectious and/inflammatory process. There is no focal abnormality appreciated within the adrenals, or kidneys. Severe hepatomegaly measuring approximately 23 cm in the craniocaudal span. Two, radiopaque calculi noted in the gallbladder, largest measuring approximately 1.6 cm. Body and tail of pancreas is mildly bulky with moderate surrounding inflammation, predominantly around the distal body and tail region. Focal hypodense area noted in the tail of pancreas measuring approximately 8 mm. Small, old calcified granuloma noted in the upper pole of spleen. There is no obvious bowel wall thickening. Bowel loops are normal in caliber without evidence of obstruction or ileus. The appendix is normal. There is no abnormality within the urinary bladder. Unremarkable re-productive organs. Aorta is normal in caliber. Mild atheromatous wall calcifications of the aorta. No lymphadenopathy. Suspected minimal free fluid in the left side of pelvis extending up to the left inguinal canal. There is no acute osseous abnormality. Surgical clips noted in the right retroperitoneum. IMPRESSIONS: Features of acute intersttitial edematous pancreatitis. Small hypodense lesion in the tail of pancreas possibly pseudocyst versus side branch IPMN. Recommend follow-up MRI. Suspected minimal free fluid in the left side of pelvis extending up to the left inguinal canal. Severe hepatomegaly. Cholelithiasis. /[place] DICTATED BY: MARY VIZCAINO Jr., MD DATE: 06/10/251818 ELECTRONICALLY SIGNED BY: DATE: EXAM: CT Abdomen and Pelvis with IV contrast CLINICAL HISTORY: Concern for acute pancreatitis. History of severe hypertriglyceridemia. TECHNIQUE: Thin collimated axial CT images of the abdomen and pelvis were obtained with sagittal and coronal reformatted images also submitted. CT scan done according to ALARA (As Low As Reasonably Achievable). CONTRAST: Yes. COMPARISON: None. FINDINGS: Multifocal airspace disease within the bilateral lower lobes may reflect an infectious and/inflammatory process. There is no focal abnormality appreciated within the adrenals, or kidneys. Severe hepatomegaly measuring approximately 23 cm in the craniocaudal span. Two, radiopaque calculi noted in the gallbladder, largest measuring approximately 1.6 cm. Body and tail of pancreas is mildly bulky with moderate surrounding inflammation, predominantly around the distal body and tail region. Focal hypodense area noted in the tail of pancreas measuring approximately 8 mm. Small, old calcified granuloma noted in the upper pole of spleen. There is no obvious bowel wall thickening. Bowel loops are normal in caliber without evidence of obstruction or ileus. The appendix is normal. There is no abnormality within the urinary bladder. Unremarkable re-productive organs. Aorta is normal in caliber. Mild atheromatous wall calcifications of the aorta. No lymphadenopathy. Suspected minimal free fluid in the left side of pelvis extending up to the left inguinal canal. There is no acute osseous abnormality. Surgical clips noted in the right retroperitoneum. IMPRESSIONS: Features of acute intersttitial edematous pancreatitis. Small hypodense lesion in the tail of pancreas possibly pseudocyst versus side branch IPMN. Recommend follow-up MRI. Suspected minimal free fluid in the left side of pelvis extending up to the left inguinal canal. Severe hepatomegaly. Cholelithiasis. /[place] DICTATED BY: MARY VIZCAINO Jr., MD DATE: 06/10/251811 ELECTRONICALLY SIGNED BY: MARY VIZCAINO Jr., MD DATE: 06/10/251811 [facility] [address] [place] [id number] IMAGING REPORT Signed PATIENT: BIN LANDRY MR#: [id number] : 1985 SEX: M AGE: 39 LOCATION: 2CH ORDER 1638 STATUS: ADM IN REPORT#: [id number] SERVICE 35 REASON: r/o significant infiltrates ORDERING PHYSICIAN: DOMINIC SMITH MD PROCEDURE: CXR1VW - CHEST 1VW EXAM: CR Chest, 1 View. CLINICAL HISTORY: r/o significant infiltrates COMPARISON: None provided. FINDINGS: LUNGS: Bibasilar airspace disease, presumed to reflect an infectious and/or inflammatory process. PLEURAL SPACES: No pleural effusion or pneumothorax. MEDIASTINUM: The cardiomediastinal silhouette is within normal limits. BONES: No aggressive appearing osseous lesion seen. IMPRESSION: 1. Bibasilar airspace disease, likely infectious or inflammatory. /[place] DICTATED BY: MARY VIZCAINO Jr., MD DATE: 06/10/251919 ELECTRONICALLY SIGNED BY: MARY VIZCAINO Jr., MD DATE: 06/10/251919 [facility] [address] [place] [phone] IMAGING REPORT Addendum PATIENT: BIN LANDRY MR#: [id number] : 1985 SEX: M AGE: 39 LOCATION: 2AH ORDER 1002 STATUS: ADM IN REPORT#: [id number] SERVICE 1000 REASON: bibasilar atelectasis and fever ORDERING PHYSICIAN: ANIA LOMELI MD PROCEDURE: CHEST WO - CT CHEST W/O CONTRAST ADDENDUM REPORT ADDENDUM: Results were shared by telephone at 12:02 PM EST on 06-13-25 and acknowledged by Patient's nurse Nathalie. /[place] EXAM: CT Chest Without IV contrast. CLINICAL HISTORY: Bibasilar atelectasis and fever TECHNIQUE: Axial computed tomography images of the chest without intravenous contrast. COMPARISON: None provided. FINDINGS: LUNGS: There are bibasilar consolidations which are likely infectious in etiology. The upper lung martinez are clear. PLEURAL SPACES: No evidence of pneumothorax. Trace left pleural effusion. No right pleural effusion. HEART: No cardiomegaly. No significant pericardial effusion. LYMPH NODES: No lymphadenopathy is evident. UPPER ABDOMEN: The upper abdominal solid organs reveal about 11???12 millimeter-sized radiopaque calculi in the lumen of the gallbladder. Mildly bulky tail of the pancreas with surrounding fat stranding concerning for pancreatitis. BONES: No acute osseous abnormality. IMPRESSION: Bibasilar consolidations which are likely infectious in etiology. Trace left pleural effusion. Gallstones. Pancreatitis. Please see the CT of the abdomen and pelvis dated 06/10/2025 for additional details. /[place] DICTATED BY: BIN CALL MD DATE: 06/13/25 1235 ELECTRONICALLY SIGNED BY: DATE: EXAM: CT Chest Without IV contrast. CLINICAL HISTORY: Bibasilar atelectasis and fever TECHNIQUE: Axial computed tomography images of the chest without intravenous contrast. COMPARISON: None provided. FINDINGS: LUNGS: There are bibasilar consolidations which are likely infectious in etiology. The upper lung martinez are clear. PLEURAL SPACES: No evidence of pneumothorax. Trace left pleural effusion. No right pleural effusion. HEART: No cardiomegaly. No significant pericardial effusion. LYMPH NODES: No lymphadenopathy is evident. UPPER ABDOMEN: The upper abdominal solid organs reveal about 11???12 millimeter-sized radiopaque calculi in the lumen of the gallbladder. Mildly bulky tail of the pancreas with surrounding fat stranding concerning for pancreatitis. BONES: No acute osseous abnormality. IMPRESSION: Bibasilar consolidations which are likely infectious in etiology. Trace left pleural effusion. Gallstones. Pancreatitis. Please see the CT of the abdomen and pelvis dated 06/10/2025 for additional details. /[place] DICTATED BY: BIN CALL MD DATE: 06/13/25 114 ELECTRONICALLY SIGNED BY: BIN CALL MD DATE: 06/13/25 114 Assessment/Plan: Discharge Diagnosis: Severe symptomatic hypertriglyceridemia, POA Acute pancreatitis secondary to hypertriglyceridemia , POA SIRS with acute organ dysfunction,ruled in POA Uncontrolled Diabetes Mellitus , POA Dehydration, POA Non anion gap Metabolic acidosis , POA- reolved Starvation ketosis- resolved . Strep group A pharyngitis Multifocal airspace disease within the bilateral lower lobes, most likely community acquired pneumonaia , per CT 06/10/2025 Severe hepatomegaly, per CT 06/10/25 Cholelithiasis, per CT 06/10/25 Electrolyte derangement (hyponatremia, hypochloremia hypocalcemia) Hyperglycemia in a type 2 noninsulin dependent diabetic Dehydration, POA History of recurrent pancreatitis, POA Underlying history of ketosis prone diabetes mellitus, POA History of hyperlipidemia, POA History of pancreatic cyst measuring 0.9 cm, (on CT Abdomen/ Pelvis, 11/17), POA Discharge Instructions: DATE OF ADMISSION: 06/10/2025 DATE OF DISCHARGE: 06/13/2025 DISPOSITION: home CONDITION: Medically stable CONSULTANTS: Dr. Polanco - Gastroenterology Ronny Hammonds MD - Critical care ALANMAY SUE MD - endocrinology FOLLOW UP APPOINTMENTS: Follow up with your primary care doctor in 2 to 3 days . Endocrinology: within 24 weeks for diabetes optimization and insulin adjustment. Gastroenterology: outpatient visit in 68 weeks for EUS to evaluate the pancreatic tail lesion after pancreatitis has fully resolved. Surgery: Your primary care doctor needs to schedule an appointment for you with surgeon for evaluation of gall stone removal if needed. Gall stone formation may increase over time and you are on fenofibrate which may increases the risk .. SPECIFIC INSTRUCTIONS: Continue Lantus 20 units daily and Regular insulin 6 units with each meal, along with the insulin sliding scale as prescribed. Follow a carb-consistent, fat-free diet to prevent recurrence of pancreatitis and help control blood glucose. Resume and continue medications for hypertriglyceridemia (Lipitor, fish oil, or others as prescribed). Maintain adequate hydration. Check blood glucose before meals and at bedtime; record values to review at follow-up visits. Seek medical care immediately if you develop severe abdominal pain, persistent vomiting, fever, or signs of uncontrolled blood sugars. PROCEDURES: none IMAGING: report attached to summary MICROBIOLOGY: report attached to summary HOME MEDICATIONS: see med rec NEW MEDICATIONS: See medication reconciliation EMERGENCY INSTRUCTIONS: The patient was instructed to present to the nearest Emergency department or call 911 once their symptoms will return or worsen. Home Medications: Active Scripts Omeprazole (Omeprazole) 40 Mg Capsule.dr, 1 CAP PO DAILY for 30 Days, #30 CAP 0 Refills Prov:TERRANCE LOCKETT MD 01/04/25 Fenofibrate Nanocrystallized (Fenofibrate) 145 Mg Tablet, 1 TAB PO DAILY for 30 Days, #30 TAB 0 Refills Prov:TERRANCE LOCKETT MD 01/04/25 Clute-3 Acid Ethyl Esters (Lovaza) 1 Gram Capsule, 2 CAP PO BID for 30 Days, #120 CAP 0 Refills Prov:TERRANCE LOCKETT MD 01/04/25 Atorvastatin Calcium (LIPITOR) 40 Mg Tablet, 40 MG PO HS for 30 Days, #30 TAB 1 Refill Prov:TERRANCE LOCKETT MD 01/04/25 Metformin HCl (Metformin HCl) 500 Mg Tablet, 500 MG PO DAILY, #30 TAB Prov:TERRANCE LOCKETT MD 01/04/25 New Medications: Insulin Glargine-Yfgn (Insulin Glargine-Yfgn) 100 Unit/Ml (3 Ml) Insuln.pen 20 UNIT SQ HS for 15 Days, #1 SYRINGE 0 Refills Insulin Regular, Human (Novolin R Flexpen) 100 Unit/Ml (3 Ml) Insuln.pen 6 UNIT SQ TID for 15 Days, #1 SYRINGE 0 Refills Levofloxacin (Levofloxacin) 500 Mg Tablet 1 TAB PO DAILY for 3 Days, #3 TAB 0 Refills Continued Medications: Atorvastatin Calcium (Lipitor) 40 Mg Tablet 40 MG PO HS for 30 Days, #30 TAB 1 Refill Fenofibrate Nanocrystallized (Fenofibrate) 145 Mg Tablet 1 TAB PO DAILY for 30 Days, #30 TAB 0 Refills Clute-3 Acid Ethyl Esters (Lovaza) 1 Gram Capsule 2 CAP PO BID for 30 Days, #120 CAP 0 Refills Discontinued Medications: Metformin HCl (Metformin HCl) 500 Mg Tablet 500 MG PO DAILY, #30 TAB Omeprazole (Omeprazole) 40 Mg Capsule.dr 1 CAP PO DAILY for 30 Days, #30 CAP 0 Refills Time spent arranging discharge: 1-30 minutes ATTESTATION BY PHYSICIAN I have seen and examined the patient. I reviewed the documentation, medical decision making, and treatment plan as noted by the resident provider above. I agree with the findings and plan of care. Jose Rivas MD, LAKSHMI MD Jun 13, 2025 14:43 RACHEL MARSHALL MD Jun 13, 2025 15:36
[2025-06-13] MEDS ORDERED: INSU100I43 SQ (15:26)
[2025-06-13] MEDS ORDERED: INSU100I94 SQ (15:26)
[2025-06-13] MEDS ORDERED: LEVO-70 PO (15:29)
--- NOTE | 2025-06-13 16:19 | NUR ---
Provided discharge instructions to patient and family members at bedside, provided follow up appointments and Drs information regarding follow ups. Provided teaching regarding medications and he is support to take. No further questions at the moment.
--- NOTE | 2025-06-13 18:07 | PN ---
Endocrinology progress note DOS:06/13/25 subjective: CMP showed sodium of 127, potassium 3.6, chloride of 100, bicarb of 17, creatinine 0.8, blood glucose of 359, lipase of 308, triglycerides of 1949. triglyceride >1900 but now less than 600, amylase was >800 but now less than 200. lipase was greater than 500 but now less than 300. currently off dextrose drip, off insulin drip at 7 units/hr. Home diabetic regimen: off atorvastatin, fenofibrate, fish oil. off lantus 50 units daily and off humalog insulin 25 units tid. Hba1c 12.75 PAST MEDICAL HISTORY: Prior history of multiple episodes of pancreatitis, history of hypertriglyceridemia, underlying history of ketosis prone diabetes mellitus, history of testicular cancer in 2003 PAST SURGICAL HISTORY: History of left testicular orchiectomy PAST SOCIAL HISTORY: Denies active smoking or alcohol consumption FAMILY HISTORY: History of liver cancer in family Allergies: Patient has allergic reaction including anaphylaxis to penicillin Home medications: Reports being on fish oil and Lipitor as outpatient Coded Allergies: Penicillins (Verified Allergy, Severe, anaphylaxis, 01/01/25) DIAGNOSTICS / RADIOLOGY: CT of the abdomen pelvis with IV contrast show pancreatitis. ASSESSMENT: Acute pancreatitis, POA triglyceride >1900 but now less than 600, amylase was >800 but now less than 200. lipase was greater than 300 but now less than 300. currently off dextrose drip, off insulin drip at 7 units/hr. History of recurrent pancreatitis, POA Nonketotic uncontrolled hyperglycemia, POA Home diabetic regimen: off atorvastatin, fenofibrae, fish oil. off lantus 50 units daily and off humalog insulin 25 units tid. Hba1c 12.75 Severe symptomatic hypertriglyceridemia, POA likely familial with contribution from uncontrolled dm-2 and non-compliant to medications. Hypovolemic hyponatremia, POA improved Dehydration, POA Underlying history of ketosis prone diabetes mellitus, POA History of hyperlipidemia, POA History of pancreatic cyst measuring 0.9 cm, (on CT Abdomen/ Pelvis, 11/17), POA History of cholelithiasis, POA PLAN: continue lantus 20 units daily. continue regular insulin 5 units qac before meals. continue medium dose ssi. Monitor glucose q x 6 hourly. Continue carb consistent diet. Keep glucose less than 180 mg/dl. continue atorvastatin 20 mg daily, fenofibrate 145 mg daily, fish oil 1 mg tid. Patient will need cholesterol meds and insulin at discharge. Vitals/Labs Vital Signs Date Time Temp Pulse Resp B/P (MAP) Pulse Ox O2 Delivery O2 Flow Rate FiO2 06/13/25 16:18 98.1 57 16 116/74 98 Room Air 06/13/25 11:41 21 06/13/25 08:00 0 Laboratory Tests 06/13/25 03:40 Medications Current Medications Sodium Chloride 1,000 ml @ 0 mls/hr Q0M IV Last administered on 06/10/25at 13:24; Start 06/10/25 at 13:30; Stop 06/10/25 at 14:43; Status DC Ondansetron HCl 4 mg ONCE ONCE IVP Last administered on 06/10/25at 13:47; Start 06/10/25 at 14:00; Stop 06/10/25 at 14:01; Status DC Morphine Sulfate 4 mg ONCE ONCE IVP Last administered on 06/10/25at 13:47; Start 06/10/25 at 14:00; Stop 06/10/25 at 14:01; Status DC Sodium Chloride 1,000 ml @ 0 mls/hr ONCE ONCE IV Last administered on 06/10/25at 14:59; Start 06/10/25 at 15:00; Stop 06/10/25 at 15:01; Status DC Sodium Chloride 1,000 ml @ 200 mls/hr PROTOCOL IV; Start 06/10/25 at 15:00; Stop 06/10/25 at 14:48; Status DC Potassium Chloride/Dextrose/ Sod Cl 1,000 ml @ 0 mls/hr AD IV Last administered on 06/12/25at 03:15; Start 06/10/25 at 15:00; Stop 06/13/25 at 16:38; Status DC Potassium Chloride 20 meq/ Sodium Chloride 1,010 ml @ 0 mls/hr PROTOCOL IV; Start 06/10/25 at 15:00; Stop 06/13/25 at 16:38; Status DC Magnesium Sulfate 50 ml @ 0 mls/hr PROTOCOL IV Last administered on 06/12/25at 09:00; Start 06/10/25 at 15:00; Stop 06/13/25 at 16:38; Status DC Insulin Human Regular 100 unit/ Sodium Chloride 101 ml @ 0 mls/hr PROTOCOL IV; Start 06/10/25 at 15:00; Stop 06/10/25 at 15:09; Status DC Dextrose/Sodium Chloride 1,000 ml @ 0 mls/hr AD IV; Start 06/10/25 at 15:00; Stop 06/13/25 at 16:38; Status DC Fish Oil 2,000 mg BID PO Last administered on 06/13/25at 08:39; Start 06/10/25 at 21:00; Stop 06/13/25 at 16:38; Status DC Potassium Chloride 100 ml @ 100 mls/hr AD PRN IV; Start 06/10/25 at 15:00; Stop 06/13/25 at 16:38; Status DC Potassium Chloride 20 meq AD PRN PO Last administered on 06/12/25at 10:17; Start 06/10/25 at 15:00; Stop 06/13/25 at 16:38; Status DC Potassium Chloride 20 meq AD PRN PO Last administered on 06/13/25at 08:47; Start 06/10/25 at 15:00; Stop 06/13/25 at 16:38; Status DC Acetaminophen 650 mg Q6H PRN PO Last administered on 06/11/25at 20:41; Start 06/10/25 at 15:00; Stop 06/13/25 at 16:38; Status DC Ondansetron HCl 4 mg Q6H PRN IVP; Start 06/10/25 at 15:00; Stop 06/13/25 at 16:38; Status DC Albuterol 1 udvial Q6H PRN IH; Start 06/10/25 at 15:00; Stop 06/13/25 at 16:38; Status DC Enoxaparin Sodium 40 mg DAILY SQ Last administered on 06/13/25at 08:40; Start 06/11/25 at 09:00; Stop 06/13/25 at 16:38; Status DC Multivitamins Therapeutic 1 tab DAILY PO Last administered on 06/13/25at 08:39; Start 06/11/25 at 09:00; Stop 06/13/25 at 16:38; Status DC Pantoprazole Sodium 40 mg Q24H IVP Last administered on 06/10/25at 15:51; Start 06/10/25 at 15:00; Stop 06/11/25 at 07:57; Status DC Morphine Sulfate 2 mg Q6H PRN IVP; Start 06/10/25 at 15:00; Stop 06/10/25 at 20:08; Status DC Pharmacy Profile Note 1 each ONCE MISC; Start 06/10/25 at 15:30; Stop 06/10/25 at 15:14; Status DC Insulin Human Regular 100 unit/ Sodium Chloride 100 ml @ 0 mls/hr PROTOCOL PRN IV Last administered on 06/11/25at 20:54; Start 06/10/25 at 15:30; Stop 06/12/25 at 08:50; Status DC Fenofibrate 145 mg DAILY PO Last administered on 06/13/25at 08:40; Start 06/11/25 at 09:00; Stop 06/13/25 at 16:38; Status DC Atorvastatin Calcium 20 mg HS PO Last administered on 06/12/25at 21:27; Start 06/10/25 at 21:00; Stop 06/13/25 at 15:09; Status DC Iohexol 75 ml STK-MED ONCE IV; Start 06/10/25 at 16:02; Stop 06/10/25 at 16:02; Status DC Levofloxacin/ Dextrose 100 ml @ 100 mls/hr Q24H IV Last administered on 06/10/25at 20:33; Start 06/10/25 at 19:00; Stop 06/11/25 at 07:57; Status DC Hydromorphone HCl 0.5 mg Q6H PRN IVP; Start 06/10/25 at 19:30; Stop 06/13/25 at 16:38; Status DC Ketorolac Tromethamine 30 mg Q6H PRN IVP Last administered on 06/10/25at 20:55; Start 06/10/25 at 19:30; Stop 06/12/25 at 11:19; Status DC Lactated Ringer's 1,000 ml @ 150 mls/hr Q6H40M IV Last administered on 06/11/25at 20:41; Start 06/11/25 at 07:30; Stop 06/13/25 at 16:38; Status DC Levofloxacin/ Dextrose 100 ml @ 100 mls/hr DAILY20 IV Last administered on 06/12/25at 21:27; Start 06/11/25 at 20:00; Stop 06/13/25 at 16:38; Status DC Pantoprazole Sodium 40 mg DAILY IVP Last administered on 06/11/25at 09:12; Start 06/11/25 at 08:00; Stop 06/12/25 at 07:18; Status DC Pantoprazole Sodium 40 mg DAILY PO Last administered on 06/13/25at 08:39; Start 06/12/25 at 09:00; Stop 06/13/25 at 16:38; Status DC Insulin Glargine 20 units ONCE ONCE SQ Last administered on 06/12/25at 09:10; Start 06/12/25 at 09:00; Stop 06/12/25 at 09:01; Status DC Insulin Human Regular 5 unit TIDAC SQ Last administered on 06/13/25at 06:14; Start 06/12/25 at 11:30; Stop 06/13/25 at 08:05; Status DC Dextrose 50 ml AD PRN IV; Start 06/12/25 at 09:00; Stop 06/13/25 at 16:38; Status DC Glucagon 1 mg AD PRN IM; Start 06/12/25 at 09:00; Stop 06/13/25 at 16:38; Status DC Insulin Human Regular INSULIN SLIDING SCAL... ACHS SQ Last administered on 06/13/25at 11:45; Start 06/12/25 at 21:00; Stop 06/13/25 at 16:38; Status DC Insulin Human Regular 6 unit TIDAC SQ Last administered on 06/13/25at 11:46; Start 06/13/25 at 11:30; Stop 06/13/25 at 16:38; Status DC Insulin Glargine 20 units HS SQ; Start 06/13/25 at 21:00; Stop 06/13/25 at 16:38; Status DC Atorvastatin Calcium 40 mg HS PO; Start 06/13/25 at 21:00; Stop 06/13/25 at 16:38; Status DC Metformin HCl 500 mg DAILY PO; Start 06/14/25 at 09:00; Stop 06/13/25 at 16:38; Status DC Home Med BID PO; Start 06/13/25 at 21:00; Stop 06/13/25 at 16:38; Status DC Miscellaneous Medication 1 cap DAILY PO; Start 06/14/25 at 09:00; Stop 06/13/25 at 15:09; Status DC MAY ALAN MD Jun 13, 2025 18:07
[2025-06-13] MEDS ORDERED: OMEGA ACID ETHYL ESTERS PO SCH (21:00)
[2025-06-13 22:10] LABS: MYCOPLASMA AB IGM <770 U/mL (0-769)
--- NOTE | 2025-06-13 22:13 | PN ---
GASTROENTEROLOGY PROGRESS NOTE Date of Visit: Jun 13, 2025 Time of Visit: 22:13 Events / Notes: [ ] Review of Systems: CONSTITUTIONAL: No malaise or change in sensation of wellbeing. ENMT: No rhinorrhea, otorrhea, sinus pain, ear ache. CARDIOVASCULAR: No angina, palpitations, orthopnea or paroxysmal dyspnea. RESPIRATORY: No SOB. GASTROINTESTINAL: No abdominal pain, nausea, vomiting, diarrhea, hematemesis, melena or change in the patient's habitual bowel movements consistency/number. GENITOURINARY: No dysuria, hematuria or change in bladder continence. MUSCULOSKELETAL: No new muscle pain or decrease in muscular strength. No new joint swelling, redness or tenderness. SKIN: No new rash. Physical Exam: GEN: Awake, alert, oriented in person, time and place, and in no acute distress. HEENT: No sinus tenderness. Tympanic membranes were not examined. No rhinorrhea. Oral pharyngeal mucosa is pink, moist and within normal limits. Neck is supple with no cervical lymphadenopathy, thyromegaly or JVD. CHEST: Inspection, palpation and percussion of the chest were unremarkable. Lung auscultation revealed normal breath sounds bilaterally. CARDIAC: PMI is within normal limits. Heart sounds are regular. Normal S1, S2. No gallop or murmur. ABD: Soft, non-tender and not distended. No peritoneal signs on palpation. No organomegaly. Normal bowel sounds. EXT: No cyanosis or clubbing. No edema. SKIN: Intact. No rashes. JOINTS: No evidence of synovitis or acute arthritis. NEURO: Alert and oriented to name, place and person. Cranial nerve examination is unremarkable. No focal motor deficits. Normal speech. Gait is normal. Strength is normal. Vital Signs (last 8hr) Date Time Temp Pulse Resp B/P (MAP) Pulse Ox O2 Delivery O2 Flow Rate FiO2 06/13/25 16:18 98.1 57 16 116/74 98 Room Air Laboratory: [ ] Laboratory: Test 06/13/25 16:02 06/13/25 03:40 06/12/25 12:18 Range/Units Whole Blood Glucose 142 H 70-110 MG/DL White Blood Count 6.3 4.8-10.8 K/uL Red Blood Count 3.98 L 4.50-6.20 MIL/uL Hemoglobin 11.9 L 14.0-18.0 g/dL Hematocrit 34.4 L 42-54 % Mean Corpuscular Volume 86.4 79-99 fL Mean Corpuscular Hemoglobin 29.9 27.0-33.0 pg Mean Corpuscular Hemoglobin Concent 34.6 32.0-36.0 g/dL Red Cell Distribution Width 13.4 11.0-15.5 % Platelet Count 245 130-400 K/uL Mean Platelet Volume 9.9 7.5-10.5 fL Immature Granulocyte % (Auto) 0.8 0-1 % Neutrophils (%) (Auto) 59.4 40.0-77.0 % Lymphocytes (%) (Auto) 31.1 21.0-51.0 % Monocytes (%) (Auto) 5.7 3.0-13.0 % Eosinophils (%) (Auto) 2.4 0.0-8.0 % Basophils (%) (Auto) 0.6 0.0-5.0 % Neutrophils # (Auto) 3.7 1.8-7.7 K/uL Lymphocytes # (Auto) 2.0 1.0-4.8 K/uL Monocytes # (Auto) 0.4 0.1-1.0 K/uL Eosinophils # (Auto) 0.15 0.00-0.70 K/uL Basophils # (Auto) 0.04 0.00-0.20 K/uL Absolute Immature Granulocyte (auto 0.05 0-1 K/uL Nucleated Red Blood Cells 0.0 0.0-0.19 % Sodium Level 135 L 136-145 mmol/L Potassium Level 3.7 3.5-5.1 mmol/L Chloride Level 103 101-111 mmol/L Carbon Dioxide Level 24 21-32 mmol/L Blood Urea Nitrogen 12 7-18 mg/dL Creatinine 0.9 0.5-1.3 mg/dL Glomerular Filtration Rate Calc 111 >90 mL/min Random Glucose 221 #H 70-105 mg/dL Total Calcium 8.5 8.5-10.1 mg/dL Total Bilirubin 0.3 # 0.2-1.0 mg/dL Aspartate Amino Transf (AST/SGOT) 11 10-37 U/L Alanine Aminotransferase (ALT/SGPT) 13 12-78 U/L Alkaline Phosphatase 103 50-136 U/L C-Reactive Protein, Quantitative 156.00 H 0.5-3.0 mg/L Total Protein 7.3 6.0-8.3 g/dL Albumin 2.5 L 3.5-5.0 g/dL Triglycerides Level 481 H 30-200 mg/dL Lipase 40 16-77 U/L Magnesium Level 2.30 1.80-2.40 mg/dL Current Medications Medications (Trade) Dose Ordered Sig/Josee Route PRN Reason Start Time Stop Time Status Last Admin Dose Admin Acetaminophen (TYLenol 325MG TAB) 650 mg Q6H PRN PO MILD PAIN (1-3) 06/10/25 15:00 06/13/25 16:38 DC 06/11/25 20:41 650 MG Albuterol (DUOneb) 1 udvial Q6H PRN IH SHORTNESS OF BREATH 06/10/25 15:00 06/13/25 16:38 DC Atorvastatin Calcium (LIPItor 20MG) 20 mg HS PO 06/10/25 21:00 06/13/25 15:09 DC 06/12/25 21:27 20 MG Atorvastatin Calcium (LIPItor 40MG) 40 mg HS PO 06/13/25 21:00 06/13/25 16:38 DC Dextrose (D50w) 50 ml AD PRN IV HYPOGLYCEMIA PROTOCOL 06/12/25 09:00 06/13/25 16:38 DC Dextrose/Sodium Chloride 1,000 ml @ 0 mls/hr AD IV 06/10/25 15:00 06/13/25 16:38 DC Enoxaparin Sodium (Lovenox) 40 mg DAILY SQ 06/11/25 09:00 06/13/25 16:38 DC 06/13/25 08:40 40 MG Fenofibrate (Tricor) 145 mg DAILY PO 06/11/25 09:00 06/13/25 16:38 DC 06/13/25 08:40 145 MG Fish Oil (Fish Oil 1000 Mg/Cap) 2,000 mg BID PO 06/10/25 21:00 06/13/25 16:38 DC 06/13/25 08:39 2,000 MG Glucagon (Glucagon 1mg Kit) 1 mg AD PRN IM HYPOGLYCEMIA PROTOCOL 06/12/25 09:00 06/13/25 16:38 DC Home Med (Home Medication) BID PO 06/13/25 21:00 06/13/25 16:38 DC Hydromorphone HCl (DiLAUDid 1MG INJ) 0.5 mg Q6H PRN IVP SEVERE PAIN (7-10) 06/10/25 19:30 06/13/25 16:38 DC Insulin Glargine (LANtus 100 UNITS/ML 10 ML VIAL) 20 units HS SQ 06/13/25 21:00 06/13/25 16:38 DC Insulin Human Regular (humuLIN R 100 UNIT/ML 3ML) 5 unit TIDAC SQ 06/12/25 11:30 06/13/25 08:05 DC 06/13/25 06:14 5 UNIT Insulin Human Regular (humuLIN R 100 UNIT/ML 3ML) 6 unit TIDAC SQ 06/13/25 11:30 06/13/25 16:38 DC 06/13/25 11:46 6 UNIT Insulin Human Regular (humuLIN R 100 UNIT/ML 3ML) INSULIN SLIDING SCAL... ACHS SQ 06/12/25 21:00 06/13/25 16:38 DC 06/13/25 11:45 2 UNIT Insulin Human Regular 100 unit/ Sodium Chloride 100 ml @ 0 mls/hr PROTOCOL PRN IV HYPERGYLCEMIA PROTOCOL 06/10/25 15:30 06/12/25 08:50 DC 06/11/25 20:54 6.8 MLS/HR Insulin Human Regular 100 unit/ Sodium Chloride 101 ml @ 0 mls/hr PROTOCOL IV 06/10/25 15:00 06/10/25 15:09 DC Ketorolac Tromethamine (toRADol) 30 mg Q6H PRN IVP MODERATE PAIN (4-6) 06/10/25 19:30 06/12/25 11:19 DC 06/10/25 20:55 30 MG Lactated Ringer's 1,000 ml @ 150 mls/hr Q6H40M IV 06/11/25 07:30 06/13/25 16:38 DC 06/11/25 20:41 150 MLS/HR Levofloxacin/ Dextrose 100 ml @ 100 mls/hr DAILY20 IV 06/11/25 20:00 06/13/25 16:38 DC 06/12/25 21:27 100 MLS/HR Levofloxacin/ Dextrose 100 ml @ 100 mls/hr Q24H IV 06/10/25 19:00 06/11/25 07:57 DC 06/10/25 20:33 100 MLS/HR Magnesium Sulfate 50 ml @ 0 mls/hr PROTOCOL IV 06/10/25 15:00 06/13/25 16:38 DC 06/12/25 09:00 25 MLS/HR Metformin HCl (glucoPHAGE) 500 mg DAILY PO 06/14/25 09:00 06/13/25 16:38 DC Miscellaneous Medication (Omeprazole ) 1 cap DAILY PO 06/14/25 09:00 06/13/25 15:09 DC Morphine Sulfate (morPHINE 2MG SYG) 2 mg Q6H PRN IVP SEVERE PAIN (7-10) 06/10/25 15:00 06/10/25 20:08 DC Multivitamins Therapeutic (Multivitamin Tablet) 1 tab DAILY PO 06/11/25 09:00 06/13/25 16:38 DC 06/13/25 08:39 1 TAB Ondansetron HCl (zoFRAN 4MG INJ) 4 mg Q6H PRN IVP NAUSEA/VOMITING 06/10/25 15:00 06/13/25 16:38 DC Pantoprazole Sodium (PROTonix 40MG INJ) 40 mg DAILY IVP 06/11/25 08:00 06/12/25 07:18 DC 06/11/25 09:12 40 MG Pantoprazole Sodium (PROTonix 40MG INJ) 40 mg Q24H IVP 06/10/25 15:00 06/11/25 07:57 DC 06/10/25 15:51 40 MG Pantoprazole Sodium (PROTonix 40MG TAB) 40 mg DAILY PO 06/12/25 09:00 06/13/25 16:38 DC 06/13/25 08:39 40 MG Pharmacy Profile Note (Pharmacy Communication) 1 each ONCE MISC 06/10/25 15:30 06/10/25 15:14 DC Potassium Chloride 20 meq/ Sodium Chloride 1,010 ml @ 0 mls/hr PROTOCOL IV 06/10/25 15:00 06/13/25 16:38 DC Potassium Chloride/Dextrose/ Sod Cl 1,000 ml @ 0 mls/hr AD IV 06/10/25 15:00 06/13/25 16:38 DC 06/12/25 03:15 150 MLS/HR Potassium Chloride 100 ml @ 100 mls/hr AD PRN IV POTASSIUM PROTOCOL 06/10/25 15:00 06/13/25 16:38 DC Potassium Chloride (K-Dur/Klor-Con 20meq) 20 meq AD PRN PO POTASSIUM PROTOCOL 06/10/25 15:00 06/13/25 16:38 DC 06/13/25 08:47 20 MEQ Potassium Chloride (KCl 10% Elixir 20meq/15ml) 20 meq AD PRN PO POTASSIUM PROTOCOL 06/10/25 15:00 06/13/25 16:38 DC 06/12/25 10:17 20 MEQ Sodium Chloride 1,000 ml @ 0 mls/hr Q0M IV 06/10/25 13:30 06/10/25 14:43 DC 06/10/25 13:24 999 MLS/HR Sodium Chloride 1,000 ml @ 200 mls/hr PROTOCOL IV 06/10/25 15:00 06/10/25 14:48 DC Diagnostics / Radiology: [COPY/PASTE HERE IF NO REPORTS PLEASE DELETE SECTION] Assessment: Abnormal imaging revealing pancreatic lesion Acute pancreatitis related to hypertriglyeridemia Plan: Case discussed with Dr. Polanco Plan for outpatient EUS once pancreatitis resolves in 6-8 weeks to eval pancreatic lesion Continue to treat pancreatitis KRISTA FULLER INTERLINE CLERK Jun 13, 2025 22:13
[2025-06-14] MEDS ORDERED: NON-FORMULARY MEDICATION 1 EACH (Omeprazole 1 CAP) PO SCH (09:00)
[2025-06-14 16:12] LABS: CHLAM.PNEUMONIAE IGM TITER <1:10 (Neg:<1:10)
== END 2025-06-13 16:20 | disposition home or self-care (01) | DRG 871 ==
LOC: EDH 12:38 → UNDOADMIN 14:35 → EDHIP 14:35 → 2CH 17:16 → EDHIP 17:16 → 2AH 06-12 10:00 → 2CH 06-12 23:41 → 2AH 06-12 23:41
PROVIDERS: ADMIT Internal Medicine; ATTEND Internal Medicine
DX: A41.9 Sepsis, unspecified organism (principal); J18.9 Pneumonia, unspecified organism; K85.80 Other acute pancreatitis without necrosis or infection; E87.20 Acidosis, unspecified; E83.51 Hypocalcemia; E88.09 Other disorders of plasma-protein metabolism, not elsewhere classified; E11.65 Type 2 diabetes mellitus with hyperglycemia; D64.9 Anemia, unspecified; E87.1 Hypo-osmolality and hyponatremia; E86.0 Dehydration; E78.1 Pure hyperglyceridemia; E86.1 Hypovolemia; E87.8 Other disorders of electrolyte and fluid balance, not elsewhere classified; K80.20 Calculus of gallbladder without cholecystitis without obstruction; Z79.4 Long term (current) use of insulin; Z79.84 Long term (current) use of oral hypoglycemic drugs; Z80.0 Family history of malignant neoplasm of digestive organs; Z85.47 Personal history of malignant neoplasm of testis; Z88.0 Allergy status to penicillin; Z91.148 Patient's other noncompliance with medication regimen for other reason
CPT/HCPCS: 36415; 36600; 71045; 71250; 74177; 80048; 80053; 80061; 80076; 81001; 82010; 82435; 82570; 82803; 82947; 82948; 83036; 83605; 83615; 83690; 83735; 84132; 84145; 84156; 84295; 84443; 84478; 85025; 85610; 85730; 86140; 86632; 86738; 87040; 87449; 87635; 87804; 87880; 93005; 94664; 96374; 96375; 99285; G0378; J1650; J1815; J1885; J1956; J2270; J2405; J2470; J3475; J3480; J7030; Q9967